=== PATIENT | female | born 1960 | race Caucasian/White ===

== ENCOUNTER 2016-12-01 11:11 | Inpatient (IN) | payer OTHER ==
[2016-12-01 14:12] VITALS: BMI 27.4
--- NOTE | 2016-12-01 18:30 | HP ---
CIWA Score - CIWA Score Nausea/Vomitin Muscle Tremors: 4-Moderate,w/Arms Extend Anxiety: 4-Mod. Anxious/Guarded Agitation: 4-Moderately Restless Paroxysmal Sweats: 1-Minimal Palms Moist Orientation: 0-Oriented Tacttile Disturbances: 0-None Auditory Disturbances: 0-None Visual Disturbances: 0-None Headache: 2-Mild CIWA-Ar Total Score: 17 Admission ROS BHS - HPI Chief Complaint: WITHDRAWAL SX Allergies/Adverse Reactions: Allergies Allergy/AdvReac Type Severity Reaction Status Date / Time No Known Allergies Allergy Verified 12/01/16 16:49 History of Present Illness: 56 YEARS OLD FEMALE WITH LONG HISTORY OF ALCOHOL NICOTINE DEPENDENCE HAS HIV POSITIVE PPD AND ANXIETY IS ADMITTED TO DETOX Exam Limitations: No Limitations - Ebola screening Have you traveled outside of the country in the last 21 days: No Have you had contact with anyone from an Ebola affected area: No Have you been sick,other than usual withdrawal symptoms: No Do you have a fever: No - Review of Systems Constitutional: Chills, Changes in sleep, Weight Stable EENT: reports: Dental Problems (UPPER AND LOWER DENTURE), Other (EYE GLASSES) Respiratory: reports: SOB with Exertion, Productive cough Cardiac: reports: No Symptoms Reported GI: reports: Nausea, Poor Fluid Intake, Indigestion, Abdominal cramping : reports: No Symptoms Reported Musculoskeletal: reports: No Symptoms Reported Integumentary: reports: No Symptoms Reported Neuro: reports: Tremors Endocrine: reports: No Symptoms Reported Hematology: reports: No Symptoms Reported Psychiatric: reports: Judgement Intact, Orientated x3, Anxious Other Systems: Reviewed and Negative Patient History - Patient Medical History Hx Anemia: No Hx Asthma: No Hx Chronic Obstructive Pulmonary Disease (COPD): No Hx Cancer: No Hx Cardiac Disorders: No Hx Congestive Heart Failure: No Hx Hypertension: No Hx Hypercholesterolemia: No Hx Pacemaker: No HX Cerebrovascular Accident: No Hx Seizures: No Hx Dementia: No Hx Diabetes: No Hx Gastrointestinal Disorders: Yes Hx Liver Disease: No Hx Genitourinary Disorders: No Hx Sexually Transmitted Disorders: No Hx Renal Disease (ESRD): No Hx Thyroid Disease: No Hx Human Immunodeficiency Virus (HIV): Yes (SINCE 2008; ON EPZICOM AND REYATAZ BUT NOT COMPLIANT DUE TO DRINKING.) Hx Hepatitis C: Yes (NO TREATMENT) Hx Depression: Yes Hx Suicide Attempt: No Hx Bipolar Disorder: No Hx Schizophrenia: No - Patient Surgical History Past Surgical History: Yes Hx Neurologic Surgery: No Hx Cataract Extraction: No Hx Cardiac Surgery: No Hx Lung Surgery: No Hx Breast Surgery: No Hx Breast Biopsy: No Hx Abdominal Surgery: Yes (exploratory sx in 2000) Hx Appendectomy: Yes (7 YEARS OLD) Hx Cholecystectomy: No Hx Genitourinary Surgery: No Hx Section: No Hx Orthopedic Surgery: No Hx Hysterectomy: No Other Surgical History: lower back sx in 2000 Anesthesia Reaction: No - PPD History Previous Implant?: Yes Documented Results: Positive w/o proof Implanted On Prior R Admission?: No PPD to be Administered?: No - Reproductive History Patient is a Female of Child Bearing Age (11 -55 yrs old): No Patient : No - Smoking Cessation Smoking history: Current every day smoker Have you smoked in the past 12 months: Yes Aproximately how many cigarettes per day: 10 Cigars Per Day: 0 Hx Chewing Tobacco Use: No Initiated information on smoking cessation: Yes 'Breaking Loose' booklet given: 12/01/16 - Substance & Tx. History Hx Alcohol Use: Yes Hx Substance Use: No Substance Use Type: Alcohol Hx Substance Use Treatment: Yes - Substances Abused Alcohol-beer Route: Oral Frequency: Daily Amount used: 3 (40 oz.) BEER Age of first use: 18 Date of Last Use: 12/01/16 Family Disease History - Family Disease History Family Disease History: Heart Disease: Mother (), CA: Father () Admission Physical Exam BHS - Vital Signs Vital Signs: Vital Signs - 24 hr 12/01/16 14:09 Temperature 95.9 F L Pulse Rate 118 H Respiratory 19 Rate Blood Pressure 119/83 - Physical General Appearance: Yes: Appropriately Dressed, Moderate Distress, Alcohol on Breath, Tremorous, Irritable, Sweating, Anxious HEENTM: Yes: Hearing grossly Normal, Normal ENT Inspection, Normocephalic, Normal Voice Respiratory: Yes: Chest Non-Tender, Lungs Clear, Normal Breath Sounds, No Respiratory Distress, No Accessory Muscle Use Neck: Yes: Supple, Trachea in good position Breast: Yes: Breasts Symetrical Cardiology: Yes: Regular Rhythm, S1, S2, Tachycardia Abdominal: Yes: Non Tender, Soft Genitourinary: Yes: Within Normal Limits Back: Yes: Normal Inspection Musculoskeletal: Yes: full range of Motion, Gait Steady Extremities: Yes: Normal Range of Motion, Non-Tender, Tremors Neurological: Yes: Fully Oriented, Alert, Motor Strength 5/5, Normal Response, Depressed Affect Integumentary: Yes: Warm Lymphatic: Yes: Within Normal Limits - Diagnostic (1) Alcohol dependence with uncomplicated withdrawal Current Visit: Yes Status: Acute (2) Nicotine dependence Current Visit: Yes Status: Acute Qualifiers: Nicotine product type: cigarettes Substance use status: in withdrawal Qualified Code(s): F17.213 - Nicotine dependence, cigarettes, with withdrawal (3) HIV (human immunodeficiency virus infection) Current Visit: Yes Status: Acute (4) Positive PPD, treated Current Visit: Yes Status: Resolved (5) Hepatitis C antibody test positive Current Visit: Yes Status: Resolved (6) Anxiety Current Visit: Yes Status: Suspected (7) Methadone maintenance therapy patient Current Visit: Yes Status: Acute Comment: 23 MG VERIFICATION PENDING Cleared for Admission [facility] - Detox or Rehab [facility] Level of Care: Medically Managed Detox Regimen/Protocol: Librium [facility] Breath Alcohol Content Breath Alcohol Content: 0.214 Urine Pregancy Test - Result Urine Test Results: Negative- NO Line Present Urine Drug Screen - Results Drug Screen Negative: No Urine Drug Screen Results: THC-Marijuana, MTD-Methadone
[2016-12-01] MEDS ORDERED: MAGNESIUM HYDROX 2400MG/30ML ORAL SUSPENSION 30 ML CUP PO PRN (18:32)
[2016-12-01] MEDS ORDERED: hydrOXYzine PAMOATE 50 MG CAPSULE (FP) PO PRN (18:32)
[2016-12-01] MEDS ORDERED: MAG HYDROX/AL HYDROX/SIMETH 30 ML UNIT-DOSE CUP PO PRN (18:32)
[2016-12-01] MEDS ORDERED: guaiFENesin/D-METHORPHAN HB 10 ML UNIT-DOSE CUPS PO PRN (18:32)
[2016-12-01] MEDS ORDERED: MENTHOL/PHENOL 1 EACH UD MM PRN (18:32)
[2016-12-01] MEDS ORDERED: IBUPROFEN 400 MG TABLET (FP) PO PRN (18:32)
[2016-12-01] MEDS ORDERED: LOPERAMIDE HCL 2 MG CAPSULE PO PRN (18:32)
[2016-12-01] MEDS ORDERED: ACETAMINOPHEN 325 MG TABLET (FP) PO PRN (18:32)
[2016-12-01] MEDS ORDERED: MAGNESIUM CITRATE 300 ML BOTTLE PO PRN (18:32)
[2016-12-01] MEDS ORDERED: diphenhydrAMINE HCL 50 MG CAPSULE PO PRN (18:32)
[2016-12-01] MEDS ORDERED: NICOTINE POLACRILEX 2 MG GUM BC PRN (18:32)
[2016-12-01] MEDS ORDERED: P-EPHED 60MG/TRIPROLIDI 2.5MG TABLET PO PRN (18:32)
[2016-12-01] MEDS ORDERED: chlordiazePOXIDE HCL 25 MG CAPSULE PO ONE (19:00)
[2016-12-01] MEDS: THIAMINE HCL 100 MG TABLET (FP) PO SCH (22:46)
[2016-12-01] MEDS: chlordiazePOXIDE HCL 25 MG CAPSULE PO SCH (22:47)
[2016-12-02 03:03] LABS: URINE APPEARANCE CLEAR; URINE BILIRUBIN NEGATIVE (NEGATIVE); URINE COLOR STRAW; URINE GLUCOSE (UA) NEGATIVE (NEGATIVE); URINE KETONE NEGATIVE (NEGATIVE); URINE LEUK ESTERASE NEGATIVE (NEGATIVE); URINE NITRITE NEGATIVE (NEGATIVE); URINE PROTEIN NEGATIVE (NEGATIVE); URINE UROBILINOGEN NEGATIVE E.U./dl (0.2-1.0)
[2016-12-02 03:10] LABS: URINE BLOOD 1+ (NEGATIVE)
[2016-12-02 03:17] LABS: URINE BACTERIA FEW /hpf (NONE SEEN); URINE HYALINE CAST 4 /lpf; URINE RBC <1 /hpf (0-3); URINE WBC 1 /hpf (3-5)
[2016-12-02] MEDS: chlordiazePOXIDE HCL 25 MG CAPSULE PO SCH ×4 (05:28→22:34)
[2016-12-02] MEDS: chlordiazePOXIDE HCL 25 MG CAPSULE PO PRN (08:38)
[2016-12-02] MEDS ORDERED: METHADONE HCL 10 MG TABLET PO ONE (08:46)
[2016-12-02] MEDS ORDERED: METHADONE 20 MG, METHADONE 5 MG PO ONE (09:16)
[2016-12-02] MEDS ORDERED: METHADONE HCL 10 MG TABLET ONE (09:32)
[2016-12-02] MEDS ORDERED: METHADONE HCL 5 MG TABLET ONE (09:33)
--- NOTE | 2016-12-02 09:50 | PN ---
[facility] CIWA - CIWA Score Nausea/Vomitin Muscle Tremors: 3 Anxiety: 3 Agitation: 3 Paroxysmal Sweats: 3 Orientation: 0-Oriented Tacttile Disturbances: 1-Very Mild Itch/Numbness Auditory Disturbances: 0-None Visual Disturbances: 0-None Headache: 0-None Present CIWA-Ar Total Score: 16 S Progress Note (SOAP) Subjective: interrupted sleep, sweats , diarrhea , anxious Objective: 12/02/16 09:47 Vital Signs Temperature 98.4 F 12/02/16 06:32 Pulse Rate 89 12/02/16 06:32 Respiratory Rate 20 12/02/16 06:32 Blood Pressure 121/66 12/02/16 06:32 O2 Sat by Pulse Oximetry (%) Laboratory Tests 12/01/16 23:25 Urine Color Straw Urine Appearance Clear Urine pH 6.0 Ur Specific [place] 1.003 Urine Protein Negative Urine Glucose (UA) Negative Urine Ketones Negative Urine Blood 1+ H Urine Nitrite Negative Urine Bilirubin Negative Urine Urobilinogen Negative Ur Leukocyte Esterase Negative Urine RBC <1 Urine WBC 1 Ur Epithelial Cells Rare Urine Bacteria Few Hyaline Casts 4 pending labs pt aox3 anxious , ambulating Assessment: 12/02/16 09:48 withdrawal sx's anxious Plan: cont. detox increase fluids imodium prn f/up pending results methadone 25mg /d
[2016-12-02 10:02] LABS: MCH 34.6 pg (25.7-33.7); MCHC 34.4 g/dl (32.0-36.0); MEAN CELL VOLUME 100.6 fl (80-96); MEAN PLT VOLUME 10.1 fl (7.5-11.1); PLATELET COUNT 156 K/MM3 (134-434); RDW 12.6 % (11.6-15.6); WHITE BLOOD COUNT 5.7 K/mm3 (4.0-10.0)
[2016-12-02 10:27] LABS: ALBUMIN 4.3 g/dl (3.4-5.0); BILIRUBIN,TOTAL 0.7 mg/dL (0.2-1.0); COCKROFT - GAULT 67.4645; TOT PROT 8.1 g/dl (6.4-8.2)
--- NOTE | 2016-12-02 10:45 | CONSULT ---
[facility] Psychiatric Consult - Data Date of interview: 12/02/16 Admission source: [facility] Identifying data: Readmission to [facility] for this 56 y/o female from [place] ancestry seeking detox treatment for alcohol and marijuana dependence.Patient is ,no children,domiciled,unemployed and supported on [employer] funds. Substance Abuse History: - Smoking Cessation. Smoking history: Current every day smoker. Have you smoked in the past 12 months: Yes. Aproximately how many cigarettes per day: 10. Cigars Per Day: 0. Hx Chewing Tobacco Use: No. Initiated information on smoking cessation: Yes. 'Breaking Loose' booklet given : 12/01/16. - Substance & Tx. History. Hx Alcohol Use: Yes. Hx Substance Use : No. Substance Use Type: Alcohol. Hx Substance Use Treatment: Yes. - Substances Abused. Alcohol-beer. Route: Oral. Frequency: Daily. Amount used: 3 (40 oz.) BEER. Age of first use: 18. Date of Last Use: 12/01/16. Confirmed by patient. Medical History: HIV infection since 2008,hepatitis C,past history of surgeries (exploratory laparotomy in 2000/disk issues in lumbar spine) and appendectomy. Psychiatric History: Patient denies. Physical/Sexual Abuse/Trauma History: Patient denies. Additional Comment: Urine Drug Screen Results: THC-Marijuana, MTD- Methadone.Noted. Mental Status Exam - Mental Status Exam Alert and Oriented to: Time, Place, Person Cognitive Function: Good Patient Appearance: Well Groomed Mood: Nervous, Withdrawn, Anxious, Apprehensive Affect: Mood Congruent Patient Behavior: Fatigued, Appropriate, Cooperative Speech Pattern: Clear Voice Loudness: Normal Thought Process: Goal Oriented Thought Disorder: Not Present Hallucinations: Denies Suicidal Ideation: Denies Homicidal Ideation: Denies Insight/Judgement: Poor Sleep: Fair Appetite: Good Muscle strength/Tone: Normal Gait/Station: Normal Psychiatric Findings - Problem List ([place] 1, 2,3) (1) Alcohol dependence with uncomplicated withdrawal Current Visit: Yes Status: Acute (2) Nicotine dependence Current Visit: Yes Status: Acute Qualifiers: Nicotine product type: cigarettes Substance use status: in withdrawal Qualified Code(s): F17.213 - Nicotine dependence, cigarettes, with withdrawal (3) Opioid dependence on agonist therapy Current Visit: Yes Status: Acute (4) marijuana dependence Current Visit: Yes Status: Active (5) Substance induced mood disorder Current Visit: Yes Status: Acute (6) HIV (human immunodeficiency virus infection) Current Visit: Yes Status: Acute (7) Hepatitis C antibody test positive Current Visit: Yes Status: Resolved (8) Positive PPD, treated Current Visit: Yes Status: Resolved - Initial Treatment Plan Initial Treatment Plan: Psychoeducation.Detoxification.Observation.
[2016-12-02] MEDS: PRENATAL VITAMINS W/ FOLIC ACID TABLET (FP) PO SCH (10:49)
[2016-12-02] MEDS: PATIENT'S OWN MEDICATION (NON-FORMULARY) (Abacavir Sulfate/Lamivudine [Epzicom -] 1 TAB) PO SCH (10:50)
[2016-12-02] MEDS: ATAZANAVIR PO SCH (10:50)
[2016-12-02] MEDS: NICOTINE 14 MG/24 HOURS TOPICAL PATCH TD SCH (10:50)
--- NOTE | 2016-12-02 13:12 | EKG ---
Test Reason : Blood Pressure : / mmHG Vent. Rate : 091 BPM Atrial Rate : 091 BPM P-R Int : 134 ms QRS Dur : 078 ms QT Int : 380 ms P-R-T Axes : 065 083 058 degrees QTc Int : 467 ms NORMAL SINUS RHYTHM NORMAL ECG NO PREVIOUS ECGS AVAILABLE Confirmed by TAMARA BAILEY, LAMAR ([id number]) on 12/02/2016 1:12:40 PM Referred By: Confirmed By:LAMAR MCDONALD MD
[2016-12-02] MEDS ORDERED: ONDANSETRON *ODT* 4 MG TABLET SL PRN (13:58)
[2016-12-02] MEDS: THIAMINE HCL 100 MG TABLET (FP) PO SCH (22:34)
[2016-12-03] MEDS ORDERED: METHADONE HCL 5 MG TABLET ONE ×2 (04:37→09:14)
[2016-12-03] MEDS ORDERED: METHADONE HCL 10 MG TABLET ONE ×2 (04:37→09:14)
[2016-12-03] MEDS: chlordiazePOXIDE HCL 25 MG CAPSULE PO SCH ×3 (05:39→17:48)
[2016-12-03] MEDS: METHADONE 20 MG, METHADONE 5 MG PO SCH (05:39)
[2016-12-03] MEDS ORDERED: METHADONE HCL 40 MG DISPERSABLE TABLET PO SCH (06:00)
[2016-12-03] MEDS: PATIENT'S OWN MEDICATION (NON-FORMULARY) (Abacavir Sulfate/Lamivudine [Epzicom -] 1 TAB) PO SCH (10:26)
[2016-12-03] MEDS: ATAZANAVIR PO SCH (10:26)
[2016-12-03] MEDS: PRENATAL VITAMINS W/ FOLIC ACID TABLET (FP) PO SCH (10:28)
[2016-12-03] MEDS: NICOTINE 14 MG/24 HOURS TOPICAL PATCH TD SCH (10:28)
[2016-12-03 10:49] LABS: SGOT/AST 204 U/L (15-37); SGPT/ALT 145 U/L (12-78)
--- NOTE | 2016-12-03 12:00 | PN ---
BHS Progress Note (SOAP) Subjective: interrupted sleep, sweats Objective: 12/03/16 11:59 Vital Signs Temperature 97.9 F 12/03/16 06:00 Pulse Rate 79 12/03/16 06:00 Respiratory Rate 18 12/03/16 06:00 Blood Pressure 101/54 12/03/16 06:00 O2 Sat by Pulse Oximetry (%) Laboratory Tests 12/01/16 12/02/16 12/02/16 23:25 06:00 06:00 WBC 5.7 D RBC 4.24 Hgb 14.7 Hct 42.6 MCV 100.6 H MCHC 34.4 RDW 12.6 D Plt Count 156 MPV 10.1 Sodium 139 Potassium 4.6 Chloride 104 Carbon Dioxide 24 Anion Gap 11 BUN 9 Creatinine 1.0 D Creat Clearance w eGFR 57.35 Random Glucose 119 H D Calcium 9.0 Total Bilirubin 0.7 D AST 176 H D ALT 115 H D Alkaline Phosphatase 99 D Total Protein 8.1 Albumin 4.3 Urine Color Straw Urine Appearance Clear Urine pH 6.0 Ur Specific [place] 1.003 Urine Protein Negative Urine Glucose (UA) Negative Urine Ketones Negative Urine Blood 1+ H Urine Nitrite Negative Urine Bilirubin Negative Urine Urobilinogen Negative Ur Leukocyte Esterase Negative Urine RBC <1 Urine WBC 1 Ur Epithelial Cells Rare Urine Bacteria Few Hyaline Casts 4 RPR Titer 12/02/16 12/03/16 06:00 07:00 WBC RBC Hgb Hct MCV MCHC RDW Plt Count MPV Sodium Potassium Chloride Carbon Dioxide Anion Gap BUN Creatinine Creat Clearance w eGFR Random Glucose Calcium Total Bilirubin AST 204 H ALT 145 H D Alkaline Phosphatase Total Protein Albumin Urine Color Urine Appearance Urine pH Ur Specific [place] Urine Protein Urine Glucose (UA) Urine Ketones Urine Blood Urine Nitrite Urine Bilirubin Urine Urobilinogen Ur Leukocyte Esterase Urine RBC Urine WBC Ur Epithelial Cells Urine Bacteria Hyaline Casts RPR Titer Nonreactive pt aox3 in nad ambulating Assessment: 12/03/16 11:59 withdrawal sx's Plan: cont. detox increase fluids
[2016-12-03] MEDS: chlordiazePOXIDE HCL 25 MG CAPSULE PO PRN (14:12)
[2016-12-03] MEDS: chlordiazePOXIDE 5 MG CAPSULE PO SCH (22:15)
[2016-12-03] MEDS: THIAMINE HCL 100 MG TABLET (FP) PO SCH (22:15)
[2016-12-04] MEDS ORDERED: METHADONE HCL 5 MG TABLET ONE (04:21)
[2016-12-04] MEDS ORDERED: METHADONE HCL 10 MG TABLET ONE (04:21)
[2016-12-04] MEDS: chlordiazePOXIDE 5 MG CAPSULE PO SCH (06:20)
[2016-12-04] MEDS: METHADONE 20 MG, METHADONE 5 MG PO SCH (06:21)
--- NOTE | 2016-12-04 08:53 | DS ---
[facility] Detox Discharge Summary Admission Date: 12/01/16 Discharge Date: 12/04/16 - History Present History: Alcohol Dependence, MMTP - Physical Exam Results Vital Signs: Vital Signs Temperature 97.9 F 12/04/16 06:59 Pulse Rate 71 12/04/16 06:59 Respiratory Rate 18 12/04/16 06:59 Blood Pressure 110/58 12/04/16 06:59 O2 Sat by Pulse Oximetry (%) - Treatment Hospital Course: Detox Protocol Followed, Detoxed Safely, Responded well, Discharged Condition Good - Medication Discharge Medications: Ambulatory Orders Abacavir Sulfate/Lamivudine [Epzicom] 1 tab PO DAILY 05/19/12 Atazanavir [Reyataz -] 400 mg PO DAILY 12/01/16 - Diagnosis (1) Alcohol dependence with uncomplicated withdrawal Current Visit: Yes Status: Chronic (2) HIV (human immunodeficiency virus infection) Current Visit: Yes Status: Chronic (3) Methadone maintenance therapy patient Current Visit: Yes Status: Chronic (4) Nicotine dependence Current Visit: Yes Status: Chronic Qualifiers: Nicotine product type: cigarettes Substance use status: uncomplicated Qualified Code(s): F17.210 - Nicotine dependence, cigarettes, uncomplicated (5) Anxiety Current Visit: Yes Status: Suspected (6) Hepatitis C antibody test positive Current Visit: Yes Status: Chronic (7) bipolar disorder Current Visit: Yes Status: Chronic - AMA Did Patient Leave Against Medical Advice: No (was d/c'ed early fereling well has things to do. )
[2016-12-04] MEDS: ATAZANAVIR PO SCH (09:31)
[2016-12-04] MEDS: PATIENT'S OWN MEDICATION (NON-FORMULARY) (Abacavir Sulfate/Lamivudine [Epzicom -] 1 TAB) PO SCH (09:32)
[2016-12-04] MEDS: NICOTINE 14 MG/24 HOURS TOPICAL PATCH TD SCH (09:33)
[2016-12-04] MEDS: PRENATAL VITAMINS W/ FOLIC ACID TABLET (FP) PO SCH (09:33)
[2016-12-04 10:02] VITALS: BP 122/71; PULSE 88; TEMP 97.2
[2016-12-04] MEDS ORDERED: chlordiazePOXIDE HCL 10 MG CAPSULE PO SCH (23:00)
== END 2016-12-04 09:43 | disposition home or self-care (01) | DRG 773 ==
LOC: YASAS 11:11 → Y6N 18:03
PROVIDERS: ADMIT Internal Medicine Addiction Medicine; ATTEND Internal Medicine Addiction Medicine
PROC: HZ2ZZZZ Detoxification Services for Substance Abuse Treatment (ICD-10-PCS; principal; 2016-12-04)
DX: F11.20 Opioid dependence, uncomplicated (principal); F10.20 Alcohol dependence, uncomplicated; F12.20 Cannabis dependence, uncomplicated; F17.213 Nicotine dependence, cigarettes, with withdrawal; F31.9 Bipolar disorder, unspecified; F19.24 Other psychoactive substance dependence with psychoactive substance-induced mood disorder; B18.2 Chronic viral hepatitis C; Z21 Asymptomatic human immunodeficiency virus [HIV] infection status
CPT/HCPCS: 36415; 71020-TC; 80053; 81003; 81015; 84450; 84460; 85027; 86593; 93005; 93010

== ENCOUNTER 2017-01-07 12:10 | Inpatient (IN) | payer OTHER ==
[2017-01-07 17:24] VITALS: BMI 28.9
--- NOTE | 2017-01-07 17:26 | HP ---
CIWA Score - CIWA Score Nausea/Vomitin-Mild Nausea/No Vomiting Muscle Tremors: 4-Moderate,w/Arms Extend Anxiety: 4-Mod. Anxious/Guarded Agitation: 4-Moderately Restless Paroxysmal Sweats: 1-Minimal Palms Moist Orientation: 0-Oriented Tacttile Disturbances: 0-None Auditory Disturbances: 0-None Visual Disturbances: 0-None Headache: 0-None Present CIWA-Ar Total Score: 14 Admission ROS BHS - HPI Chief Complaint: WITHDRAWAL SX Allergies/Adverse Reactions: Allergies Allergy/AdvReac Type Severity Reaction Status Date / Time No Known Allergies Allergy Verified 01/07/17 17:29 History of Present Illness: 56 YEARS OLD FEMALE WITH LONG HISTORY OF ALCOHOL NICOTINE DEPENDENCE HAS HIV POSITIVE PPD HEPATITIS C AND BIPOLAR II IS ADMITTED TO DETOX Exam Limitations: No Limitations - Ebola screening Have you traveled outside of the country in the last 21 days: No Have you had contact with anyone from an Ebola affected area: No Have you been sick,other than usual withdrawal symptoms: No Do you have a fever: No - Review of Systems Constitutional: Chills, Changes in sleep, Weight Stable EENT: reports: Other (EYE GLASSES AT HOME) Respiratory: reports: No Symptoms reported Cardiac: reports: No Symptoms Reported GI: reports: Nausea, Poor Fluid Intake, Indigestion, Abdominal cramping : reports: No Symptoms Reported Musculoskeletal: reports: No Symptoms Reported Integumentary: reports: No Symptoms Reported Neuro: reports: Tremors Endocrine: reports: No Symptoms Reported Hematology: reports: No Symptoms Reported Psychiatric: reports: Judgement Intact, Orientated x3, Depressed Other Systems: Reviewed and Negative Patient History - Patient Medical History Hx Anemia: No Hx Asthma: No Hx Chronic Obstructive Pulmonary Disease (COPD): No Hx Cancer: No Hx Cardiac Disorders: No Hx Congestive Heart Failure: No Hx Hypertension: No Hx Hypercholesterolemia: No Hx Pacemaker: No HX Cerebrovascular Accident: No Hx Seizures: No Hx Dementia: No Hx Diabetes: No Hx Gastrointestinal Disorders: Yes Hx Liver Disease: No Hx Genitourinary Disorders: No Hx Sexually Transmitted Disorders: No Hx Renal Disease (ESRD): No Hx Thyroid Disease: No Hx Human Immunodeficiency Virus (HIV): Yes (SINCE 2008; ON EPZICOM AND REYATAZ BUT NOT COMPLIANT DUE TO DRINKING.) Hx Hepatitis C: Yes (NO TREATMENT) Hx Depression: No Hx Suicide Attempt: No Hx Bipolar Disorder: Yes Hx Schizophrenia: No - Patient Surgical History Past Surgical History: Yes Hx Neurologic Surgery: No Hx Cataract Extraction: No Hx Cardiac Surgery: No Hx Lung Surgery: No Hx Breast Surgery: No Hx Breast Biopsy: No Hx Abdominal Surgery: Yes (ABSCESS exploratory sx in 2000) Hx Appendectomy: Yes (7 YEARS OLD) Hx Cholecystectomy: No Hx Genitourinary Surgery: No Hx Section: No Hx Orthopedic Surgery: No Hx Hysterectomy: No Other Surgical History: lower back sx in 2000 [facility] EXPL[employer] Anesthesia Reaction: No - PPD History Previous Implant?: Yes Documented Results: Positive w/o proof Implanted On Prior R Admission?: No PPD to be Administered?: No - Reproductive History Patient is a Female of Child Bearing Age (11 -55 yrs old): No - Smoking Cessation Smoking history: Current every day smoker Have you smoked in the past 12 months: Yes Aproximately how many cigarettes per day: 20 Cigars Per Day: 0 Hx Chewing Tobacco Use: No Initiated information on smoking cessation: Yes 'Breaking Loose' booklet given: 01/07/17 - Substance & Tx. History Hx Alcohol Use: Yes Hx Substance Use: Yes Substance Use Type: Alcohol, Marijuana, Tranquilizers Hx Substance Use Treatment: Yes - Substances Abused Alcohol Route: Oral Frequency: Daily Alcohol-beer Route: Oral Frequency: Daily Amount used: 3 (40 oz.) Age of first use: 18 Date of Last Use: 01/07/17 Family Disease History - Family Disease History Family Disease History: Heart Disease: Mother (), CA: Father () Admission Physical Exam S - Physical General Appearance: Yes: Nourished, Appropriately Dressed, Mild Distress, Alcohol on Breath, Tremorous, Irritable, Sweating, Anxious HEENTM: Yes: Hearing grossly Normal, Normal ENT Inspection, Normocephalic, Normal Voice Respiratory: Yes: Chest Non-Tender, Lungs Clear, Normal Breath Sounds, No Respiratory Distress, No Accessory Muscle Use Neck: Yes: Supple, Trachea in good position Breast: Yes: Breasts Symetrical Cardiology: Yes: Regular Rhythm, S1, S2, Tachycardia Abdominal: Yes: Non Tender, Soft, Distended (SCHEDULED FOR ULTRASOUND,) Genitourinary: Yes: Within Normal Limits Back: Yes: Normal Inspection Musculoskeletal: Yes: full range of Motion, Gait Steady Extremities: Yes: Normal Inspection, Normal Range of Motion, Non-Tender, Tremors Neurological: Yes: Fully Oriented, Alert, Motor Strength 5/5, Normal Response, Depressed Affect Integumentary: Yes: Warm Lymphatic: Yes: Within Normal Limits - Diagnostic (1) Alcohol dependence with uncomplicated withdrawal Current Visit: Yes Status: Acute (2) HIV (human immunodeficiency virus infection) Current Visit: Yes Status: Chronic Comment: 23 MG VERIFICATION PENDING (3) Hepatitis C antibody test positive Current Visit: Yes Status: Resolved Comment: TREATED (4) Methadone maintenance therapy patient Current Visit: Yes Status: Chronic Comment: 23 MG VERIFICATION PENDING (5) Nicotine dependence Current Visit: Yes Status: Acute Qualifiers: Nicotine product type: cigarettes Substance use status: in withdrawal Qualified Code(s): F17.213 - Nicotine dependence, cigarettes, with withdrawal (6) Cannabis dependence, uncomplicated Current Visit: Yes Status: Chronic Cleared for Admission S - Detox or Rehab [facility] Level of Care: Medically Managed Detox Regimen/Protocol: Librium BHS Breath Alcohol Content Breath Alcohol Content: 0 Vital Signs - Vital Signs Vital Signs Refused: No Temperature: 98.6 F Temperature Source: Oral Pulse Rate: 108 Respiratory Rate: 20 Blood Pressure: 141/94 BP Location: Left Arm Blood Pressure Position: Sitting - Height Height: 5 ft 2 in - Weight Weight: 158 lb Weight Measurement Method: Standing Scale Body Mass Index (BMI): 28.9 - Bowel Function Bowel Movement: Yes Urine Drug Screen - Control Is Test Valid: Yes - Results Drug Screen Negative: No Urine Drug Screen Results: THC-Marijuana, BZO-Benzodiazepines, MTD-Methadone
[2017-01-07] MEDS ORDERED: MAGNESIUM HYDROX 2400MG/30ML ORAL SUSPENSION 30 ML CUP PO PRN (17:31)
[2017-01-07] MEDS ORDERED: guaiFENesin/D-METHORPHAN HB 10 ML UNIT-DOSE CUPS PO PRN (17:31)
[2017-01-07] MEDS ORDERED: P-EPHED 60MG/TRIPROLIDI 2.5MG TABLET PO PRN (17:31)
[2017-01-07] MEDS ORDERED: IBUPROFEN 400 MG TABLET (FP) PO PRN (17:31)
[2017-01-07] MEDS ORDERED: ACETAMINOPHEN 325 MG TABLET (FP) PO PRN (17:31)
[2017-01-07] MEDS ORDERED: MENTHOL/PHENOL 1 EACH UD MM PRN (17:31)
[2017-01-07] MEDS ORDERED: MAGNESIUM CITRATE 300 ML BOTTLE PO PRN (17:31)
[2017-01-07] MEDS ORDERED: LOPERAMIDE HCL 2 MG CAPSULE PO PRN (17:31)
[2017-01-07] MEDS ORDERED: MAG HYDROX/AL HYDROX/SIMETH 30 ML UNIT-DOSE CUP PO PRN (17:31)
[2017-01-07] MEDS ORDERED: NICOTINE POLACRILEX 4 MG GUM BC PRN (17:31)
[2017-01-07] MEDS ORDERED: cloNIDine HCL 0.1 MG TABLET PO PRN (17:46)
[2017-01-07] MEDS: chlordiazePOXIDE HCL 25 MG CAPSULE PO PRN (19:34)
[2017-01-07] MEDS: RANITIDINE HCL 150 MG TABLET (FP) PO SCH (22:12)
[2017-01-07] MEDS: THIAMINE HCL 100 MG TABLET (FP) PO SCH (22:12)
[2017-01-07] MEDS: chlordiazePOXIDE HCL 25 MG CAPSULE PO SCH (22:12)
[2017-01-07] MEDS: diphenhydrAMINE HCL 50 MG CAPSULE PO PRN (22:12)
[2017-01-07 23:23] LABS: URINE APPEARANCE CLEAR; URINE BILIRUBIN NEGATIVE (NEGATIVE); URINE BLOOD NEGATIVE (NEGATIVE); URINE COLOR DKYELLOW; URINE GLUCOSE (UA) NEGATIVE (NEGATIVE); URINE KETONE TRACE (NEGATIVE); URINE LEUK ESTERASE NEGATIVE (NEGATIVE); URINE NITRITE NEGATIVE (NEGATIVE); URINE PROTEIN NEGATIVE (NEGATIVE); URINE UROBILINOGEN 4.0 E.U/dl E.U./dl (0.2-1.0)
[2017-01-08] MEDS: chlordiazePOXIDE HCL 25 MG CAPSULE PO SCH ×4 (07:02→22:29)
[2017-01-08] MEDS ORDERED: METHADONE HCL 10 MG TABLET PO ONE ×2 (08:27)
--- NOTE | 2017-01-08 08:55 | CONSULT ---
[facility] Psychiatric Consult - Data Date of interview: 01/08/17 Admission source: [facility] Identifying data: This is 56 years old female with no psychiatric hospitalization history intoxicated with: Alcohol, Nicotine and Cannabis and Methadone Substance Abuse History: - Smoking Cessation. Smoking history: Current every day smoker. Have you smoked in the past 12 months: Yes. Aproximately how many cigarettes per day: 20. Cigars Per Day: 0. Hx Chewing Tobacco Use: No. Initiated information on smoking cessation: Yes. 'Breaking Loose' booklet given : 01/07/17. - Substance & Tx. History. Hx Alcohol Use: Yes. Hx Substance Use : Yes. Substance Use Type: Alcohol, Marijuana, Tranquilizers. Hx Substance Use Treatment: Yes. - Substances Abused. Alcohol. Route: Oral. Frequency : Daily. Alcohol-beer. Route: Oral. Frequency: Daily. Amount used: 3 (40 oz.). Age of first use: 18. Date of Last Use: 01/07/17 Medical History: HIV, Syncope history, PPD+ history, HerpC+,MMTP 23mg per day Psychiatric History: Patient reprots history of anxiety and depression, as per computer there ios a history of Bipolar Disorder, patient reports no history of Bi[polar Disorder Physical/Sexual Abuse/Trauma History: Denies Additional Comment: Observation. Detox Unit Care Protocol Mental Status Exam - Mental Status Exam Alert and Oriented to: Person Cognitive Function: Fair Patient Appearance: Unkempt Mood: Anxious Affect: Mood Congruent Patient Behavior: Cooperative Speech Pattern: Appropriate Voice Loudness: Normal Thought Process: Goal Oriented Thought Disorder: Being Controlled Hallucinations: Denies Suicidal Ideation: Denies Homicidal Ideation: Denies Insight/Judgement: Fair Sleep: Difficulty falling asleep Appetite: Weight gain Muscle strength/Tone: Normal Gait/Station: Normal Additional Comments: Observation. Detox Unit Care Protocol Psychiatric Findings - Problem List ([place] 1, 2,3) (1) Alcohol dependence with uncomplicated withdrawal Current Visit: Yes Status: Acute (2) Nicotine dependence Current Visit: Yes Status: Acute Qualifiers: Nicotine product type: cigarettes Substance use status: in withdrawal Qualified Code(s): F17.213 - Nicotine dependence, cigarettes, with withdrawal (3) Cannabis dependence, uncomplicated Current Visit: Yes Status: Chronic (4) Methadone maintenance therapy patient Current Visit: Yes Status: Chronic Comment: 23 MG VERIFICATION PENDING (5) Alcohol dependence Current Visit: No Status: Active (6) marijuana dependence Current Visit: No Status: Active (7) Opioid dependence on agonist therapy Current Visit: No Status: Acute (8) Substance induced mood disorder Current Visit: No Status: Acute - Initial Treatment Plan Initial Treatment Plan: Observation. Detox Unit Care Protocol
[2017-01-08] MEDS ORDERED: METHADONE 20 MG, METHADONE 5 MG PO ONE (10:05)
[2017-01-08 10:07] LABS: MCH 34.9 pg (25.7-33.7); MCHC 34.2 g/dl (32.0-36.0); MEAN PLT VOLUME 9.7 fl (7.5-11.1); PLATELET COUNT 116 K/MM3 (134-434); RDW 13.1 % (11.6-15.6); WHITE BLOOD COUNT 4.2 K/mm3 (4.0-10.0)
[2017-01-08 10:11] LABS: ALBUMIN 3.8 g/dl (3.4-5.0); ALK PHOS 80 U/L (45-117); ANION GAP 7 (8-16); BILIRUBIN,TOTAL 1.1 mg/dL (0.2-1.0); CALCIUM 8.8 mg/dL (8.5-10.1); CO2 30 mmol/L (21-32); CREATININE 0.9 mg/dL (0.55-1.02); GLUCOSE,RANDOM 111 mg/dL (74-106); SGOT/AST 66 U/L (15-37); SGPT/ALT 51 U/L (12-78); TOT PROT 6.8 g/dl (6.4-8.2)
[2017-01-08] MEDS: RANITIDINE HCL 150 MG TABLET (FP) PO SCH ×2 (10:26→22:29)
[2017-01-08] MEDS: NICOTINE 21 MG/24 HOURS TOPICAL PATCH TD SCH (10:26)
[2017-01-08] MEDS: PRENATAL VITAMINS W/ FOLIC ACID TABLET (FP) PO SCH (10:26)
[2017-01-08] MEDS ORDERED: METHADONE HCL 10 MG TABLET ONE (10:28)
[2017-01-08] MEDS ORDERED: METHADONE HCL 5 MG TABLET ONE (10:28)
[2017-01-08] MEDS: ATAZANAVIR PO SCH (11:13)
[2017-01-08] MEDS: PATIENT'S OWN MEDICATION (NON-FORMULARY) (Abacavir Sulfate/Lamivudine [Epzicom -] 1 TAB) PO SCH (11:13)
--- NOTE | 2017-01-08 12:19 | PN ---
S CIWA - CIWA Score Nausea/Vomitin Muscle Tremors: 3 Anxiety: 3 Agitation: 2 Paroxysmal Sweats: 3 Orientation: 0-Oriented Tacttile Disturbances: 1-Very Mild Itch/Numbness Auditory Disturbances: 0-None Visual Disturbances: 0-None Headache: 0-None Present CIWA-Ar Total Score: 14 BHS Progress Note (SOAP) Subjective: interrupted sleep,sweats, mild shakes, starting to eat. Objective: 01/08/17 12:18 Vital Signs Temperature 97.9 F 01/08/17 09:52 Pulse Rate 98 H 01/08/17 09:52 Respiratory Rate 18 01/08/17 09:52 Blood Pressure 104/64 01/08/17 09:52 O2 Sat by Pulse Oximetry (%) Laboratory Tests 01/07/17 01/08/17 01/08/17 23:10 07:00 07:00 WBC 4.2 RBC 3.86 Hgb 13.5 Hct 39.4 MCV 102.0 H MCHC 34.2 RDW 13.1 Plt Count 116 L D MPV 9.7 Sodium 142 Potassium 4.1 Chloride 105 Carbon Dioxide 30 D Anion Gap 7 L BUN 15 D Creatinine 0.9 Creat Clearance w eGFR > 60 Random Glucose 111 H Calcium 8.8 Total Bilirubin 1.1 H D AST 66 H D ALT 51 D Alkaline Phosphatase 80 Total Protein 6.8 Albumin 3.8 Urine Color Dkyellow Urine Appearance Clear Urine pH 6.0 Ur Specific [place] 1.015 Urine Protein Negative Urine Glucose (UA) Negative Urine Ketones Trace H Urine Blood Negative Urine Nitrite Negative Urine Bilirubin Negative Urine Urobilinogen 4.0 e.u/dl H Ur Leukocyte Esterase Negative pt aox3 in nad ambulating Assessment: 01/08/17 12:19 withdrawal sx's Plan: cont. detox increase fluids
--- NOTE | 2017-01-08 13:12 | EKG ---
Test Reason : Blood Pressure : / mmHG Vent. Rate : 079 BPM Atrial Rate : 079 BPM P-R Int : 122 ms QRS Dur : 078 ms QT Int : 392 ms P-R-T Axes : 053 081 048 degrees QTc Int : 449 ms NORMAL SINUS RHYTHM NONSPECIFIC ST AND T WAVE ABNORMALITY ABNORMAL ECG WHEN COMPARED WITH ECG OF 01-DEC-2016 19:17, NO SIGNIFICANT CHANGE WAS FOUND Confirmed by NARAYAN FERNANDEZ MD ([id number]) on 01/08/2017 1:12:18 PM Referred By: Ruel Can Confirmed By:NARAYAN FERNANDEZ MD
[2017-01-08] MEDS: chlordiazePOXIDE HCL 25 MG CAPSULE PO PRN (13:28)
[2017-01-08] MEDS: THIAMINE HCL 100 MG TABLET (FP) PO SCH (22:29)
[2017-01-08] MEDS: diphenhydrAMINE HCL 50 MG CAPSULE PO PRN (22:29)
[2017-01-09] MEDS ORDERED: METHADONE HCL 10 MG TABLET ONE (04:49)
[2017-01-09] MEDS ORDERED: METHADONE HCL 5 MG TABLET ONE (04:49)
[2017-01-09] MEDS ORDERED: METHADONE HCL 40 MG DISPERSABLE TABLET PO SCH ×2 (06:00)
[2017-01-09] MEDS: chlordiazePOXIDE HCL 25 MG CAPSULE PO SCH ×3 (07:37→17:12)
[2017-01-09] MEDS: METHADONE 20 MG, METHADONE 5 MG PO SCH (07:37)
[2017-01-09] MEDS: PATIENT'S OWN MEDICATION (NON-FORMULARY) (Abacavir Sulfate/Lamivudine [Epzicom -] 1 TAB) PO SCH (08:25)
[2017-01-09] MEDS: ATAZANAVIR PO SCH (08:26)
[2017-01-09] MEDS: PRENATAL VITAMINS W/ FOLIC ACID TABLET (FP) PO SCH (10:29)
[2017-01-09] MEDS: RANITIDINE HCL 150 MG TABLET (FP) PO SCH ×2 (10:29→22:33)
[2017-01-09] MEDS: NICOTINE 21 MG/24 HOURS TOPICAL PATCH TD SCH (10:30)
--- NOTE | 2017-01-09 11:17 | PN ---
[facility] CIWA - CIWA Score Nausea/Vomitin-No Nausea/No Vomiting Muscle Tremors: 3 Anxiety: 3 Agitation: 3 Paroxysmal Sweats: 3 Orientation: 0-Oriented Tacttile Disturbances: 0-None Auditory Disturbances: 0-None Visual Disturbances: 0-None Headache: 0-None Present CIWA-Ar Total Score: 12 S Progress Note (SOAP) Subjective: sweats anxious body aches Objective: 01/09/17 11:16 Vital Signs Temperature 97.7 F 01/09/17 10:00 Pulse Rate 97 H 01/09/17 10:00 Respiratory Rate 20 01/09/17 10:00 Blood Pressure 102/71 01/09/17 10:00 O2 Sat by Pulse Oximetry (%) Laboratory Tests 01/07/17 01/08/17 01/08/17 23:10 07:00 07:00 WBC 4.2 RBC 3.86 Hgb 13.5 Hct 39.4 MCV 102.0 H MCHC 34.2 RDW 13.1 Plt Count 116 L D MPV 9.7 Sodium 142 Potassium 4.1 Chloride 105 Carbon Dioxide 30 D Anion Gap 7 L BUN 15 D Creatinine 0.9 Creat Clearance w eGFR > 60 Random Glucose 111 H Calcium 8.8 Total Bilirubin 1.1 H D AST 66 H D ALT 51 D Alkaline Phosphatase 80 Total Protein 6.8 Albumin 3.8 Urine Color Dkyellow Urine Appearance Clear Urine pH 6.0 Ur Specific [place] 1.015 Urine Protein Negative Urine Glucose (UA) Negative Urine Ketones Trace H Urine Blood Negative Urine Nitrite Negative Urine Bilirubin Negative Urine Urobilinogen 4.0 e.u/dl H Ur Leukocyte Esterase Negative RPR Titer 01/08/17 07:00 WBC RBC Hgb Hct MCV MCHC RDW Plt Count MPV Sodium Potassium Chloride Carbon Dioxide Anion Gap BUN Creatinine Creat Clearance w eGFR Random Glucose Calcium Total Bilirubin AST ALT Alkaline Phosphatase Total Protein Albumin Urine Color Urine Appearance Urine pH Ur Specific [place] Urine Protein Urine Glucose (UA) Urine Ketones Urine Blood Urine Nitrite Urine Bilirubin Urine Urobilinogen Ur Leukocyte Esterase RPR Titer Nonreactive awake/alert ambulating no acute distress Assessment: 01/09/17 11:17 withdrawal sx Plan: continue detox increase fluids
[2017-01-09] MEDS: diphenhydrAMINE HCL 50 MG CAPSULE PO PRN (22:30)
[2017-01-09] MEDS: THIAMINE HCL 100 MG TABLET (FP) PO SCH (22:31)
[2017-01-09] MEDS: chlordiazePOXIDE 5 MG CAPSULE PO SCH (22:31)
[2017-01-10] MEDS ORDERED: METHADONE HCL 10 MG TABLET ONE (04:07)
[2017-01-10] MEDS ORDERED: METHADONE HCL 5 MG TABLET ONE (04:08)
[2017-01-10] MEDS: chlordiazePOXIDE 5 MG CAPSULE PO SCH ×3 (07:15→18:10)
[2017-01-10] MEDS: METHADONE 20 MG, METHADONE 5 MG PO SCH (07:16)
[2017-01-10] MEDS: ATAZANAVIR PO SCH (08:03)
[2017-01-10] MEDS: PATIENT'S OWN MEDICATION (NON-FORMULARY) (Abacavir Sulfate/Lamivudine [Epzicom -] 1 TAB) PO SCH (08:04)
[2017-01-10] MEDS: PRENATAL VITAMINS W/ FOLIC ACID TABLET (FP) PO SCH (10:36)
[2017-01-10] MEDS: RANITIDINE HCL 150 MG TABLET (FP) PO SCH ×2 (10:37→22:14)
[2017-01-10] MEDS: NICOTINE 21 MG/24 HOURS TOPICAL PATCH TD SCH (10:37)
[2017-01-10] MEDS ORDERED: METHADONE HCL 10 MG TABLET PO ONE (10:59)
[2017-01-10] MEDS ORDERED: METHADONE 20 MG, METHADONE 5 MG PO ONE (12:15)
--- NOTE | 2017-01-10 20:01 | PN ---
BHS Progress Note (SOAP) Subjective: Sweating, Stomach Cramping, Constipation. Objective: PT. A & OX 3, OBSERVED AMBULATING ON UNIT. 01/10/17 20:00 Vital Signs Temperature 98.4 F 01/10/17 18:34 Pulse Rate 74 01/10/17 18:34 Respiratory Rate 18 01/10/17 18:34 Blood Pressure 94/65 01/10/17 18:34 O2 Sat by Pulse Oximetry (%) Laboratory Tests 01/07/17 01/08/17 01/08/17 23:10 07:00 07:00 WBC 4.2 RBC 3.86 Hgb 13.5 Hct 39.4 MCV 102.0 H MCHC 34.2 RDW 13.1 Plt Count 116 L D MPV 9.7 Sodium 142 Potassium 4.1 Chloride 105 Carbon Dioxide 30 D Anion Gap 7 L BUN 15 D Creatinine 0.9 Creat Clearance w eGFR > 60 Random Glucose 111 H Calcium 8.8 Total Bilirubin 1.1 H D AST 66 H D ALT 51 D Alkaline Phosphatase 80 Total Protein 6.8 Albumin 3.8 Urine Color Dkyellow Urine Appearance Clear Urine pH 6.0 Ur Specific [place] 1.015 Urine Protein Negative Urine Glucose (UA) Negative Urine Ketones Trace H Urine Blood Negative Urine Nitrite Negative Urine Bilirubin Negative Urine Urobilinogen 4.0 e.u/dl H Ur Leukocyte Esterase Negative RPR Titer 01/08/17 07:00 WBC RBC Hgb Hct MCV MCHC RDW Plt Count MPV Sodium Potassium Chloride Carbon Dioxide Anion Gap BUN Creatinine Creat Clearance w eGFR Random Glucose Calcium Total Bilirubin AST ALT Alkaline Phosphatase Total Protein Albumin Urine Color Urine Appearance Urine pH Ur Specific [place] Urine Protein Urine Glucose (UA) Urine Ketones Urine Blood Urine Nitrite Urine Bilirubin Urine Urobilinogen Ur Leukocyte Esterase RPR Titer Nonreactive LABS NOTED. 01/10/17 20:01 Assessment: 01/10/17 20:01 WITHDRAWAL SYMPTOMS. Plan: CONTINUE DETOX. AM (MAINTENANCE) DOSE OF METHADONE (25 MG) INITIALLY HELD DUE TO LOW BP. DOSE ORDERED AND GIVEN LATER IN AM WHEN BP RETURNED APPROPRIATE LEVEL. ADVISED PT. TO FOLLOW-UP WITH OFFICE CLEANER AFTER DISCHARGE FROM DETOX FOR GENERAL MEDICAL ASSESSMENT AND FOR LOW ADMISSION PLATELET LEVEL.
[2017-01-10] MEDS: chlordiazePOXIDE HCL 10 MG CAPSULE PO SCH (22:15)
[2017-01-10] MEDS: THIAMINE HCL 100 MG TABLET (FP) PO SCH (22:15)
[2017-01-10] MEDS: diphenhydrAMINE HCL 50 MG CAPSULE PO PRN (22:15)
[2017-01-11] MEDS ORDERED: METHADONE HCL 10 MG TABLET ONE (05:33)
[2017-01-11] MEDS ORDERED: METHADONE HCL 5 MG TABLET ONE (05:34)
[2017-01-11] MEDS: chlordiazePOXIDE HCL 10 MG CAPSULE PO SCH (05:34)
[2017-01-11] MEDS: METHADONE 20 MG, METHADONE 5 MG PO SCH (05:34)
[2017-01-11] MEDS: PATIENT'S OWN MEDICATION (NON-FORMULARY) (Abacavir Sulfate/Lamivudine [Epzicom -] 1 TAB) PO SCH (07:40)
[2017-01-11 07:42] VITALS: BP 94/61; PULSE 76; TEMP 97.2
[2017-01-11] MEDS: ATAZANAVIR PO SCH (07:45)
[2017-01-11] MEDS: RANITIDINE HCL 150 MG TABLET (FP) PO SCH (09:47)
[2017-01-11] MEDS: PRENATAL VITAMINS W/ FOLIC ACID TABLET (FP) PO SCH (09:47)
[2017-01-11] MEDS: NICOTINE 21 MG/24 HOURS TOPICAL PATCH TD SCH (09:47)
--- NOTE | 2017-01-11 11:11 | DS ---
[facility] Detox Discharge Summary Admission Date: 01/07/17 Discharge Date: 01/11/17 - History Present History: Alcohol Dependence, Cannabis Dependence, MMTP Pertinent Past History: HIV infection Hep C - Physical Exam Results Vital Signs: Vital Signs Temperature 97.2 F L 01/11/17 07:40 Pulse Rate 76 01/11/17 07:40 Respiratory Rate 20 01/11/17 07:40 Blood Pressure 94/61 01/11/17 07:40 O2 Sat by Pulse Oximetry (%) Pertinent Admission Physical Exam Findings: Withdrawal sx. Laboratory Last Values WBC 4.2 K/mm3 (4.0-10.0) 01/08/17 07:00 RBC 3.86 M/mm3 (3.60-5.2) 01/08/17 07:00 Hgb 13.5 GM/dL (10.7-15.3) 01/08/17 07:00 Hct 39.4 % (32.4-45.2) 01/08/17 07:00 MCV 102.0 fl (80-96) H 01/08/17 07:00 MCHC 34.2 g/dl (32.0-36.0) 01/08/17 07:00 RDW 13.1 % (11.6-15.6) 01/08/17 07:00 Plt Count 116 K/MM3 (134-434) L D 01/08/17 07:00 MPV 9.7 fl (7.5-11.1) 01/08/17 07:00 Sodium 142 mmol/L (136-145) 01/08/17 07:00 Potassium 4.1 mmol/L (3.5-5.1) 01/08/17 07:00 Chloride 105 mmol/L (98-107) 01/08/17 07:00 Carbon Dioxide 30 mmol/L (21-32) D 01/08/17 07:00 Anion Gap 7 (8-16) L 01/08/17 07:00 BUN 15 mg/dL (7-18) D 01/08/17 07:00 Creatinine 0.9 mg/dL (0.55-1.02) 01/08/17 07:00 Creat Clearance w eGFR > 60 (>60) 01/08/17 07:00 Random Glucose 111 mg/dL (74-106) H 01/08/17 07:00 Calcium 8.8 mg/dL (8.5-10.1) 01/08/17 07:00 Total Bilirubin 1.1 mg/dL (0.2-1.0) H D 01/08/17 07:00 AST 66 U/L (15-37) H D 01/08/17 07:00 ALT 51 U/L (12-78) D 01/08/17 07:00 Alkaline Phosphatase 80 U/L (45-117) 01/08/17 07:00 Total Protein 6.8 g/dl (6.4-8.2) 01/08/17 07:00 Albumin 3.8 g/dl (3.4-5.0) 01/08/17 07:00 Urine Color Dkyellow 01/07/17 23:10 Urine Appearance Clear 01/07/17 23:10 Urine pH 6.0 (5.0-8.0) 01/07/17 23:10 Ur Specific [place] 1.015 (1.005-1.025) 01/07/17 23:10 Urine Protein Negative (NEGATIVE) 01/07/17 23:10 Urine Glucose (UA) Negative (NEGATIVE) 01/07/17 23:10 Urine Ketones Trace (NEGATIVE) H 01/07/17 23:10 Urine Blood Negative (NEGATIVE) 01/07/17 23:10 Urine Nitrite Negative (NEGATIVE) 01/07/17 23:10 Urine Bilirubin Negative (NEGATIVE) 01/07/17 23:10 Urine Urobilinogen 4.0 e.u/dl E.U./dl (0.2-1.0) H 01/07/17 23:10 Ur Leukocyte Esterase Negative (NEGATIVE) 01/07/17 23:10 RPR Titer Nonreactive (NONREACTIVE) 01/08/17 07:00 labs noted - Treatment Hospital Course: Detox Protocol Followed, Detoxed Safely, Responded well, Discharged Condition Good, Rehab Referral Accepted Patient has Accepted a Rehab Referral to: OTP & IOP - Medication Discharge Medications: Ambulatory Orders Abacavir Sulfate/Lamivudine [Epzicom] 1 tab PO DAILY 05/19/12 Atazanavir [Reyataz -] 400 mg PO DAILY 12/01/16 - Diagnosis (1) Alcohol dependence with uncomplicated withdrawal Status: Acute (2) Nicotine dependence Status: Acute Qualifiers: Nicotine product type: cigarettes Substance use status: in withdrawal Qualified Code(s): F17.213 - Nicotine dependence, cigarettes, with withdrawal (3) Opioid dependence on agonist therapy Status: Acute (4) Substance induced mood disorder Status: Acute (5) Cannabis dependence, uncomplicated Status: Chronic (6) HIV (human immunodeficiency virus infection) Status: Chronic - AMA Did Patient Leave Against Medical Advice: No
== END 2017-01-11 10:53 | disposition home or self-care (01) | DRG 773 ==
LOC: YASAS 12:10 → Y6N 18:08
PROVIDERS: ADMIT Internal Medicine Addiction Medicine; ATTEND Internal Medicine Addiction Medicine
PROC: HZ2ZZZZ Detoxification Services for Substance Abuse Treatment (ICD-10-PCS; principal; 2017-01-07)
DX: F10.230 Alcohol dependence with withdrawal, uncomplicated (principal); F11.20 Opioid dependence, uncomplicated; F12.20 Cannabis dependence, uncomplicated; F17.210 Nicotine dependence, cigarettes, uncomplicated; F19.24 Other psychoactive substance dependence with psychoactive substance-induced mood disorder; Z21 Asymptomatic human immunodeficiency virus [HIV] infection status; R00.0 Tachycardia, unspecified; B18.2 Chronic viral hepatitis C; Z86.79 Personal history of other diseases of the circulatory system
CPT/HCPCS: 36415; 80053; 81003; 85027; 86593; 93005; 93010

== ENCOUNTER 2017-12-29 14:58 | Inpatient (IN) | payer OTHER ==
[2017-12-29 17:59] VITALS: BMI 28.9
--- NOTE | 2017-12-29 21:57 | HP ---
CIWA Score - CIWA Score Nausea/Vomitin Muscle Tremors: 4-Moderate,w/Arms Extend Anxiety: 4-Mod. Anxious/Guarded Agitation: 4-Moderately Restless Paroxysmal Sweats: 3 Orientation: 0-Oriented Tacttile Disturbances: 3-Moderate Itch/Numb/Burn Auditory Disturbances: 0-None Visual Disturbances: 0-None Headache: 2-Mild CIWA-Ar Total Score: 23 Admission ROS BHS - HPI Chief Complaint: c/o withdrawal sx's from alcohol and benzo dependence Allergies/Adverse Reactions: Allergies Allergy/AdvReac Type Severity Reaction Status Date / Time No Known Allergies Allergy Verified 12/29/17 19:38 History of Present Illness: 57 Y.O. FEMALE WITH LONG HX/O ALCOHOLISM, BENZO AND OPIOID DEPENDENCE HERE OFR DETOX. CLIENT WAS LAST HERE . REFERRED TODAY BY HER DRUG COUNSELOR. SHE REPORTS SHE IS PRESENTLY ON MMTP 23 MG DAILY AT [facility]. SHE REPORTS HER LDM WAS YESTERDAY. UTOX NEG FOR MTD. METHADONE DOSE PENDING VERIFICATION. REPORTS LONGEST CLEAN TIME 3 YEARS. NOW RELAPSING AFTER 5 MONTHS SOBRIETY THIS PAST OCTOBER. PMHX: HIV, DENIES MENTAL HEALTH, SI/HI, A/V HALLUCINATIONS Exam Limitations: No Limitations - Ebola screening Have you traveled outside of the country in the last 21 days: No (N) Have you had contact with anyone from an Ebola affected area: No Have you been sick,other than usual withdrawal symptoms: No Do you have a fever: No - Review of Systems Constitutional: Chills, Loss of Appetite, Night Sweats, Changes in sleep EENT: reports: Dental Problems (DENTURES) Respiratory: reports: No Symptoms reported Cardiac: reports: No Symptoms Reported GI: reports: Diarrhea, Nausea, Poor Appetite, Poor Fluid Intake, Vomiting : reports: No Symptoms Reported Musculoskeletal: reports: No Symptoms Reported Integumentary: reports: No Symptoms Reported Neuro: reports: No Symptoms reported Endocrine: reports: No Symptoms Reported Hematology: reports: No Symptoms Reported Psychiatric: reports: Anxious Other Systems: Reviewed and Negative Patient History - Patient Medical History Hx Anemia: No Hx Asthma: No Hx Chronic Obstructive Pulmonary Disease (COPD): No Hx Cancer: No Hx Cardiac Disorders: No Hx Congestive Heart Failure: No Hx Hypertension: No Hx Hypercholesterolemia: No Hx Pacemaker: No HX Cerebrovascular Accident: No Hx Seizures: No Hx Dementia: No Hx Diabetes: No Hx Gastrointestinal Disorders: No Hx Liver Disease: No Hx Genitourinary Disorders: No Hx Sexually Transmitted Disorders: No Hx Renal Disease (ESRD): No Hx Thyroid Disease: No Hx Human Immunodeficiency Virus (HIV): Yes (SINCE 2008; ON EPZICOM AND REYATAZ BUT NOT COMPLIANT DUE TO DRINKING.) Hx Hepatitis C: Yes (S/P HARVONI TXMENT) Hx Depression: No Hx Suicide Attempt: No Hx Bipolar Disorder: No Hx Schizophrenia: No Other Medical History: DENIES - Patient Surgical History Past Surgical History: Yes Hx Neurologic Surgery: No Hx Cataract Extraction: No Hx Cardiac Surgery: No Hx Lung Surgery: No Hx Breast Surgery: No Hx Breast Biopsy: No Hx Abdominal Surgery: Yes (ABSCESS exploratory sx in 2000) Hx Appendectomy: Yes (7 YEARS OLD) Hx Cholecystectomy: No Hx Genitourinary Surgery: No Hx Section: No Hx Orthopedic Surgery: No Hx Hysterectomy: No Other Surgical History: lower back sx in 2000 SEQUALA OF EXPLORATORY Anesthesia Reaction: No - PPD History Documented Results: Positive w/o proof - Reproductive History Patient is a Female of Child Bearing Age (11 -55 yrs old): No Patient : No ([place] [facility] [place] - Smoking Cessation Smoking history: Current every day smoker Have you smoked in the past 12 months: Yes Aproximately how many cigarettes per day: 20 Cigars Per Day: 0 Hx Chewing Tobacco Use: No Initiated information on smoking cessation: Yes 'Breaking Loose' booklet given: 12/29/17 - Substance & Tx. History Hx Alcohol Use: Yes Hx Substance Use: Yes Substance Use Type: Alcohol, Tranquilizers Hx Substance Use Treatment: Yes ([facility]) - Substances Abused Alcohol Route: Oral Frequency: Daily Amount used: Beer 4 of 40 oz {malt liqour} Age of first use: 18 Date of Last Use: 12/29/17 Benzodiazepine (Klonopin) Route: Oral Frequency: 1-2 times per week Amount used: 1mg Age of first use: 56 Date of Last Use: 12/29/17 Family Disease History - Family Disease History Family Disease History: Heart Disease: Mother (), CA: Father () Admission Physical Exam BHS - Vital Signs Vital Signs: Vital Signs - 24 hr 12/29/17 17:56 Temperature 99.1 F Pulse Rate 109 H Respiratory 20 Rate Blood Pressure 143/83 - Physical General Appearance: Yes: Appropriately Dressed, Alcohol on Breath, Tremorous, Anxious HEENTM: Yes: EOMI, Normocephalic, Normal Voice, ANGEL, Pharynx Normal, Other ( EDENTULOUS) Respiratory: Yes: Chest Non-Tender, Lungs Clear, Normal Breath Sounds, No Respiratory Distress, No Accessory Muscle Use Neck: Yes: No masses,lesions,Nodules, Supple, Trachea in good position Breast: Yes: Breast Exam Deferred Cardiology: Yes: Regular Rhythm, Regular Rate, S1, S2 Abdominal: Yes: Non Tender, Soft, Increased Bowel Sounds, Protuberent Genitourinary: Yes: Within Normal Limits Back: Yes: Normal Inspection Musculoskeletal: Yes: full range of Motion, Gait Steady Extremities: Yes: Normal Capillary Refill, Normal Range of Motion, Non-Tender, Tremors Neurological: Yes: mold cooler II-XII NML intact, Fully Oriented, Alert, Motor Strength 5/5 Integumentary: Yes: Warm, Other (FLUSHED) Lymphatic: Yes: Within Normal Limits - Diagnostic (1) History of positive PPD Current Visit: Yes Status: Chronic (2) Alcohol dependence with uncomplicated withdrawal Current Visit: Yes Status: Chronic (3) Nicotine dependence Current Visit: Yes Status: Chronic Qualifiers: Nicotine product type: cigarettes Substance use status: uncomplicated Qualified Code(s): F17.210 - Nicotine dependence, cigarettes, uncomplicated (4) Substance induced mood disorder Current Visit: Yes Status: Suspected (5) HIV (human immunodeficiency virus infection) Current Visit: Yes Status: Chronic (6) Methadone maintenance therapy patient Current Visit: Yes Status: Chronic Comment: 23 MG VERIFICATION PENDING (7) Anxiety Current Visit: Yes Status: Suspected Cleared for Admission [facility] - Detox or Rehab [facility] Level of Care: Medically Managed Detox Regimen/Protocol: Librium Claeared for Rehab Admission: No [facility] Breath Alcohol Content Breath Alcohol Content: 0.179 Urine Pregancy Test - Result Urine Test Results: Negative- NO Line Present Urine Drug Screen - Results Drug Screen Negative: No Urine Drug Screen Results: TCA-Tricyclic Antidepress
[2017-12-29] MEDS ORDERED: MELATONIN 5 MG TABLETS PO PRN (22:00)
[2017-12-29] MEDS ORDERED: LOPERAMIDE HCL 2 MG CAPSULE PO PRN (22:02)
[2017-12-29] MEDS ORDERED: MAGNESIUM HYDROX 2400MG/30ML ORAL SUSPENSION 30 ML CUP PO PRN (22:02)
[2017-12-29] MEDS ORDERED: MAGNESIUM CITRATE 300 ML BOTTLE PO PRN (22:02)
[2017-12-29] MEDS ORDERED: MAG HYDROX/AL HYDROX/SIMETH 30 ML UNIT-DOSE CUP PO PRN (22:02)
[2017-12-29] MEDS ORDERED: P-EPHED 60MG/TRIPROLIDI 2.5MG TABLET PO PRN (22:02)
[2017-12-29] MEDS ORDERED: hydrOXYzine PAMOATE 50 MG CAPSULE (FP) PO PRN (22:02)
[2017-12-29] MEDS ORDERED: ACETAMINOPHEN 325 MG TABLET (FP) PO PRN (22:02)
[2017-12-29] MEDS ORDERED: IBUPROFEN 400 MG TABLET (FP) PO PRN (22:02)
[2017-12-29] MEDS ORDERED: MENTHOL/PHENOL 1 EACH UD MM PRN (22:02)
[2017-12-29] MEDS ORDERED: chlordiazePOXIDE HCL 25 MG CAPSULE PO PRN (22:02)
[2017-12-29] MEDS ORDERED: guaiFENesin/D-METHORPHAN HB 10 ML UNIT-DOSE CUPS PO PRN (22:02)
[2017-12-29] MEDS ORDERED: NICOTINE POLACRILEX 2 MG GUM BC PRN (22:02)
[2017-12-29] MEDS: chlordiazePOXIDE HCL 25 MG CAPSULE PO SCH (23:20)
[2017-12-30] MEDS: chlordiazePOXIDE HCL 25 MG CAPSULE PO SCH ×4 (04:09→22:14)
[2017-12-30] MEDS ORDERED: METHADONE HCL 10 MG TABLET PO SCH (09:00)
[2017-12-30] MEDS ORDERED: ATAZANAVIR SO4 200 MG CAPSULE PO SCH ×2 (10:00→10:02)
[2017-12-30 10:13] LABS: URINE APPEARANCE CLEAR; URINE BILIRUBIN NEGATIVE (<2.0 mg/dL); URINE COLOR YELLOW; URINE GLUCOSE (UA) NEGATIVE (NEGATIVE); URINE KETONE TRACE (NEGATIVE); URINE LEUK ESTERASE NEGATIVE (NEGATIVE); URINE NITRITE NEGATIVE (NEGATIVE); URINE PROTEIN NEGATIVE (NEGATIVE); URINE UROBILINOGEN NEGATIVE mg/dL (0.2-1.0)
[2017-12-30 10:18] LABS: CHLORIDE 104 mmol/L (98-107); HEMATOCRIT 38.9 % (32.4-45.2); HEMOGLOBIN 13.6 GM/dL (10.7-15.3); MCH 34.7 pg (25.7-33.7); MEAN CELL VOLUME 99.2 fl (80-96); MEAN PLT VOLUME 9.9 fl (7.5-11.1); PLATELET COUNT 134 K/MM3 (134-434); POTASSIUM 4.1 mmol/L (3.5-5.1); RBC 3.92 M/mm3 (3.60-5.2); SODIUM 141 mmol/L (136-145); WHITE BLOOD COUNT 4.1 K/mm3 (4.0-10.0)
[2017-12-30] MEDS: PRENATAL VITAMINS W/ FOLIC ACID TABLET (FP) PO SCH (10:25)
[2017-12-30] MEDS: NICOTINE 21 MG/24 HOURS TOPICAL PATCH TD SCH (10:25)
[2017-12-30 10:27] LABS: ALBUMIN 3.5 g/dl (3.4-5.0); ALK PHOS 69 U/L (45-117); ANION GAP 9 (8-16); BILIRUBIN,TOTAL 1.4 mg/dL (0.2-1.0); BLOOD UREA NITROGEN 13 mg/dL (7-18); CALCIUM 8.4 mg/dL (8.5-10.1); CO2 28 mmol/L (21-32); CREATININE 0.8 mg/dL (0.55-1.02); GLUCOSE,RANDOM 84 mg/dL (74-106); SGOT/AST 145 U/L (15-37); SGPT/ALT 112 U/L (12-78); TOT PROT 6.8 g/dl (6.4-8.2)
[2017-12-30] MEDS ORDERED: METHADONE 20 MG, METHADONE 5 MG PO ONE (11:00)
--- NOTE | 2017-12-30 11:47 | PN ---
[facility] CIWA - CIWA Score Nausea/Vomitin-Mild Nausea/No Vomiting Muscle Tremors: 4-Moderate,w/Arms Extend Anxiety: 5 Agitation: 5 Paroxysmal Sweats: 1-Minimal Palms Moist Orientation: 1-Uncertain about Date Tacttile Disturbances: 2-Mild Itch/Numbness/Burn Auditory Disturbances: 0-None Visual Disturbances: 0-None Headache: 0-None Present CIWA-Ar Total Score: 19 BHS Progress Note (SOAP) Subjective: tremor sweat anxiety restlessness trouble sleep at night gi distress patient is on methadone maintenance dosage of 23 mg Objective: 12/30/17 11:44 Vital Signs Temperature 97.9 F 12/30/17 10:21 Pulse Rate 104 H 12/30/17 10:30 Respiratory Rate 16 12/30/17 10:30 Blood Pressure 104/58 12/30/17 10:21 O2 Sat by Pulse Oximetry (%) Laboratory Last Values WBC 4.1 K/mm3 (4.0-10.0) 12/30/17 07:30 RBC 3.92 M/mm3 (3.60-5.2) 12/30/17 07:30 Hgb 13.6 GM/dL (10.7-15.3) 12/30/17 07:30 Hct 38.9 % (32.4-45.2) 12/30/17 07:30 MCV 99.2 fl (80-96) H 12/30/17 07:30 MCH 34.7 pg (25.7-33.7) H 12/30/17 07:30 MCHC 35.0 g/dl (32.0-36.0) 12/30/17 07:30 RDW 14.0 % (11.6-15.6) 12/30/17 07:30 Plt Count 134 K/MM3 (134-434) D 12/30/17 07:30 MPV 9.9 fl (7.5-11.1) 12/30/17 07:30 Sodium 141 mmol/L (136-145) 12/30/17 07:30 Potassium 4.1 mmol/L (3.5-5.1) 12/30/17 07:30 Chloride 104 mmol/L (98-107) 12/30/17 07:30 Carbon Dioxide 28 mmol/L (21-32) 12/30/17 07:30 Anion Gap 9 (8-16) 12/30/17 07:30 BUN 13 mg/dL (7-18) 12/30/17 07:30 Creatinine 0.8 mg/dL (0.55-1.02) 12/30/17 07:30 Creat Clearance w eGFR > 60 (>60) 12/30/17 07:30 Random Glucose 84 mg/dL (74-106) 12/30/17 07:30 Calcium 8.4 mg/dL (8.5-10.1) L 12/30/17 07:30 Total Bilirubin 1.4 mg/dL (0.2-1.0) H D 12/30/17 07:30 AST 145 U/L (15-37) H 12/30/17 07:30 ALT 112 U/L (12-78) H 12/30/17 07:30 Alkaline Phosphatase 69 U/L (45-117) 12/30/17 07:30 Total Protein 6.8 g/dl (6.4-8.2) 12/30/17 07:30 Albumin 3.5 g/dl (3.4-5.0) 12/30/17 07:30 Urine Color Yellow 12/30/17 08:00 Urine Appearance Clear 12/30/17 08:00 Urine pH 6.0 (5.0-8.0) 12/30/17 08:00 Ur Specific [place] 1.019 (1.001-1.035) 12/30/17 08:00 Urine Protein Negative (NEGATIVE) 12/30/17 08:00 Urine Glucose (UA) Negative (NEGATIVE) 12/30/17 08:00 Urine Ketones Trace (NEGATIVE) H 12/30/17 08:00 Urine Blood Negative (NEGATIVE) 12/30/17 08:00 Urine Nitrite Negative (NEGATIVE) 12/30/17 08:00 Urine Bilirubin Negative (<2.0 mg/dL) 12/30/17 08:00 Urine Urobilinogen Negative mg/dL (0.2-1.0) 12/30/17 08:00 Ur Leukocyte Esterase Negative (NEGATIVE) 12/30/17 08:00 lab noted Assessment: 12/30/17 11:45 withdrawal sx methadone maintenance Plan: continue detox received pharmacist called that 23 mg can not be calculated as tablet patient stated that last admission 25 mg of methadone was tolerated well and worked well for her
--- NOTE | 2017-12-30 12:03 | EKG ---
Test Reason : Blood Pressure : / mmHG Vent. Rate : 098 BPM Atrial Rate : 098 BPM P-R Int : 134 ms QRS Dur : 080 ms QT Int : 376 ms P-R-T Axes : 069 085 051 degrees QTc Int : 480 ms NORMAL SINUS RHYTHM SEPTAL INFARCT , AGE UNDETERMINED ABNORMAL ECG WHEN COMPARED WITH ECG OF 16-JUN-2017 17:17, SEPTAL INFARCT IS NOW PRESENT Confirmed by LORENE BAILEY, BRIAN ([id number]) on 12/30/2017 12:03:34 PM Referred By: Confirmed By:BRIAN PAULSON MD
[2017-12-30] MEDS ORDERED: METHADONE HCL 5 MG TABLET ONE (12:22)
[2017-12-30] MEDS ORDERED: METHADONE HCL 10 MG TABLET ONE (12:23)
[2017-12-30] MEDS: ATAZANAVIR SO4 200 MG CAPSULE PO SCH (12:33)
[2017-12-30] MEDS: PATIENT'S OWN MEDICATION (NON-FORMULARY) (Abacavir Sulfate/Lamivudine [Epzicom -] 1 TAB) PO SCH (12:33)
--- NOTE | 2017-12-30 19:31 | CONSULT ---
[facility] Psychiatric Consult - Data Date of interview: 12/30/17 Admission source: [facility] Identifying data: Another admission to [facility] for this 57 y/o female from [place] ancestry seeking detox treatment on for alcohol, opioid and benzodiazepine dependence.Patient is ,no children,domiciled, unemployed and supported on [employer] funds. Substance Abuse History: Confirmed by the patient in this interview.Smoking history: Current every day smoker. Have you smoked in the past 12 months: Yes. Aproximately how many cigarettes per day: 20. Cigars Per Day: 0. Hx Chewing Tobacco Use: No. Initiated information on smoking cessation: Yes. 'Breaking Loose' booklet given: 12/29/17. - Substance & Tx. History. Hx Alcohol Use: Yes. Hx Substance Use: Yes. Substance Use Type: Alcohol, Tranquilizers. Hx Substance Use Treatment: Yes ([facility]). - Substances Abused. Alcohol. Route: Oral. Frequency: Daily. Amount used: Beer 4 of 40 oz {malt liqour}. Age of first use: 18. Date of Last Use: 12/29/17. Benzodiazepine (Klonopin). Route: Oral. Frequency: 1-2 times per week. Amount used: 1mg. Age of first use: 56. Date of Last Use: 12/29/17 Medical History: HIV infection since 2008 (on HAART medications),hepatitis C, past history of surgeries (exploratory laparotomy in 2000 for abcess + discal issues in lumbar spine) and a remote history of appendectomy. Psychiatric History: Patient denies history of psychiatric hospitalizations.Ms Abdi is currently on methadone maintenance (25 mg/day) at the [facility] program in [facility].Patient denies istory of suicide attempts. Physical/Sexual Abuse/Trauma History: Patient denies. Additional Comment: Urine Drug Screen Results: TCA-Tricyclic Antidepressant. Mental Status Exam - Mental Status Exam Alert and Oriented to: Time, Place, Person Cognitive Function: Good Patient Appearance: Well Groomed Mood: Euthymic Affect: Appropriate, Normal Range Patient Behavior: Appropriate (friendly), Cooperative Speech Pattern: Clear, Appropriate Voice Loudness: Normal Thought Process: Intact, Goal Oriented Thought Disorder: Not Present Hallucinations: Denies Suicidal Ideation: Denies Homicidal Ideation: Denies Insight/Judgement: Poor Sleep: Well Appetite: Good Muscle strength/Tone: Normal Gait/Station: Normal Psychiatric Findings - Problem List ([place] 1, 2,3) (1) Opioid dependence on agonist therapy Current Visit: Yes Status: Acute (2) Alcohol dependence with uncomplicated withdrawal Current Visit: Yes Status: Acute (3) Nicotine dependence Current Visit: Yes Status: Acute Qualifiers: Nicotine product type: cigarettes Substance use status: uncomplicated Qualified Code(s): F17.210 - Nicotine dependence, cigarettes, uncomplicated - Initial Treatment Plan Initial Treatment Plan: Psychoeducation.Detoxification.Observation.
[2017-12-30] MEDS ORDERED: THIAMINE HCL 100 MG TABLET (FP) PO SCH (22:00)
[2017-12-31] MEDS ORDERED: METHADONE HCL 5 MG TABLET ONE (04:26)
[2017-12-31] MEDS ORDERED: METHADONE HCL 10 MG TABLET ONE (04:27)
[2017-12-31] MEDS: chlordiazePOXIDE HCL 25 MG CAPSULE PO SCH ×3 (05:39→17:19)
[2017-12-31] MEDS ORDERED: METHADONE 20 MG, METHADONE 5 MG PO SCH (06:00)
[2017-12-31] MEDS: ATAZANAVIR SO4 200 MG CAPSULE PO SCH (08:40)
[2017-12-31] MEDS: PATIENT'S OWN MEDICATION (NON-FORMULARY) (Abacavir Sulfate/Lamivudine [Epzicom -] 1 TAB) PO SCH (09:00)
[2017-12-31] MEDS: PRENATAL VITAMINS W/ FOLIC ACID TABLET (FP) PO SCH (10:18)
[2017-12-31] MEDS: NICOTINE 21 MG/24 HOURS TOPICAL PATCH TD SCH (10:18)
--- NOTE | 2017-12-31 10:53 | PN ---
[facility] CIWA - CIWA Score Nausea/Vomitin-No Nausea/No Vomiting Muscle Tremors: 1-None Visible, but [place] Anxiety: 3 Agitation: 3 Paroxysmal Sweats: 1-Minimal Palms Moist Orientation: 0-Oriented Tacttile Disturbances: 1-Very Mild Itch/Numbness Auditory Disturbances: 0-None Visual Disturbances: 0-None Headache: 1-Very Mild CIWA-Ar Total Score: 10 S Progress Note (SOAP) Subjective: reported feeling better today slept throughout the night less tremor no sweat mild anxiousness alert oriented x 3 preferred to joint methadone program community services on 01/01/18 Objective: 12/31/17 10:56 Vital Signs Temperature 98.1 F 12/31/17 10:21 Pulse Rate 90 12/31/17 10:21 Respiratory Rate 18 12/31/17 10:21 Blood Pressure 125/73 12/31/17 10:21 O2 Sat by Pulse Oximetry (%) Laboratory Last Values WBC 4.1 K/mm3 (4.0-10.0) 12/30/17 07:30 RBC 3.92 M/mm3 (3.60-5.2) 12/30/17 07:30 Hgb 13.6 GM/dL (10.7-15.3) 12/30/17 07:30 Hct 38.9 % (32.4-45.2) 12/30/17 07:30 MCV 99.2 fl (80-96) H 12/30/17 07:30 MCH 34.7 pg (25.7-33.7) H 12/30/17 07:30 MCHC 35.0 g/dl (32.0-36.0) 12/30/17 07:30 RDW 14.0 % (11.6-15.6) 12/30/17 07:30 Plt Count 134 K/MM3 (134-434) D 12/30/17 07:30 MPV 9.9 fl (7.5-11.1) 12/30/17 07:30 Sodium 141 mmol/L (136-145) 12/30/17 07:30 Potassium 4.1 mmol/L (3.5-5.1) 12/30/17 07:30 Chloride 104 mmol/L (98-107) 12/30/17 07:30 Carbon Dioxide 28 mmol/L (21-32) 12/30/17 07:30 Anion Gap 9 (8-16) 12/30/17 07:30 BUN 13 mg/dL (7-18) 12/30/17 07:30 Creatinine 0.8 mg/dL (0.55-1.02) 12/30/17 07:30 Creat Clearance w eGFR > 60 (>60) 12/30/17 07:30 Random Glucose 84 mg/dL (74-106) 12/30/17 07:30 Calcium 8.4 mg/dL (8.5-10.1) L 12/30/17 07:30 Total Bilirubin 1.4 mg/dL (0.2-1.0) H D 12/30/17 07:30 AST 145 U/L (15-37) H 12/30/17 07:30 ALT 112 U/L (12-78) H 12/30/17 07:30 Alkaline Phosphatase 69 U/L (45-117) 12/30/17 07:30 Total Protein 6.8 g/dl (6.4-8.2) 12/30/17 07:30 Albumin 3.5 g/dl (3.4-5.0) 12/30/17 07:30 Urine Color Yellow 12/30/17 08:00 Urine Appearance Clear 12/30/17 08:00 Urine pH 6.0 (5.0-8.0) 12/30/17 08:00 Ur Specific [place] 1.019 (1.001-1.035) 12/30/17 08:00 Urine Protein Negative (NEGATIVE) 12/30/17 08:00 Urine Glucose (UA) Negative (NEGATIVE) 12/30/17 08:00 Urine Ketones Trace (NEGATIVE) H 12/30/17 08:00 Urine Blood Negative (NEGATIVE) 12/30/17 08:00 Urine Nitrite Negative (NEGATIVE) 12/30/17 08:00 Urine Bilirubin Negative (<2.0 mg/dL) 12/30/17 08:00 Urine Urobilinogen Negative mg/dL (0.2-1.0) 12/30/17 08:00 Ur Leukocyte Esterase Negative (NEGATIVE) 12/30/17 08:00 RPR Titer Nonreactive (NONREACTIVE) 12/30/17 07:30 lab noted 12/31/17 11:08 repeat result pending Assessment: 12/31/17 11:15 mild withdrawal sx Plan: medically supervised detox
[2017-12-31 17:07] VITALS: BP 90/50; PULSE 80; TEMP 98.1
--- NOTE | 2017-12-31 20:06 | DS ---
[facility] Detox Discharge Summary Admission Date: 12/29/17 Discharge Date: 12/31/17 - History Present History: Alcohol Dependence, Opioid Dependence Additional Comments: Patient in no apparent distress. No suicidal / homicidal ideation. Patient medically stable. Patient insist on leaving today, although it advise for her to stay and continue to treatment. The patient verbalizes she understands the risks and complications that may result from the refusal of medical care which may include and permanent disability and has the mental capacity to make such decision. Patient advised to seek medical care at local ER , PCP or urgent care if symptoms worsen. - Physical Exam Results Vital Signs: Vital Signs Temperature 98.1 F 12/31/17 17:06 Pulse Rate 80 12/31/17 17:06 Respiratory Rate 18 12/31/17 17:06 Blood Pressure 90/50 12/31/17 17:06 O2 Sat by Pulse Oximetry (%) Pertinent Admission Physical Exam Findings: Vital Signs Temperature 98.1 F 12/31/17 17:06 Pulse Rate 80 12/31/17 17:06 Respiratory Rate 18 12/31/17 17:06 Blood Pressure 90/50 12/31/17 17:06 O2 Sat by Pulse Oximetry (%) Laboratory Last Values WBC 4.1 K/mm3 (4.0-10.0) 12/30/17 07:30 RBC 3.92 M/mm3 (3.60-5.2) 12/30/17 07:30 Hgb 13.6 GM/dL (10.7-15.3) 12/30/17 07:30 Hct 38.9 % (32.4-45.2) 12/30/17 07:30 MCV 99.2 fl (80-96) H 12/30/17 07:30 MCH 34.7 pg (25.7-33.7) H 12/30/17 07:30 MCHC 35.0 g/dl (32.0-36.0) 12/30/17 07:30 RDW 14.0 % (11.6-15.6) 12/30/17 07:30 Plt Count 134 K/MM3 (134-434) D 12/30/17 07:30 MPV 9.9 fl (7.5-11.1) 12/30/17 07:30 Sodium 141 mmol/L (136-145) 12/30/17 07:30 Potassium 4.1 mmol/L (3.5-5.1) 12/30/17 07:30 Chloride 104 mmol/L (98-107) 12/30/17 07:30 Carbon Dioxide 28 mmol/L (21-32) 12/30/17 07:30 Anion Gap 9 (8-16) 12/30/17 07:30 BUN 13 mg/dL (7-18) 12/30/17 07:30 Creatinine 0.8 mg/dL (0.55-1.02) 12/30/17 07:30 Creat Clearance w eGFR > 60 (>60) 12/30/17 07:30 Random Glucose 84 mg/dL (74-106) 12/30/17 07:30 Calcium 8.4 mg/dL (8.5-10.1) L 12/30/17 07:30 Total Bilirubin 1.4 mg/dL (0.2-1.0) H D 12/30/17 07:30 AST 145 U/L (15-37) H 12/30/17 07:30 ALT 112 U/L (12-78) H 12/30/17 07:30 Alkaline Phosphatase 69 U/L (45-117) 12/30/17 07:30 Total Protein 6.8 g/dl (6.4-8.2) 12/30/17 07:30 Albumin 3.5 g/dl (3.4-5.0) 12/30/17 07:30 Urine Color Yellow 12/30/17 08:00 Urine Appearance Clear 12/30/17 08:00 Urine pH 6.0 (5.0-8.0) 12/30/17 08:00 Ur Specific [place] 1.019 (1.001-1.035) 12/30/17 08:00 Urine Protein Negative (NEGATIVE) 12/30/17 08:00 Urine Glucose (UA) Negative (NEGATIVE) 12/30/17 08:00 Urine Ketones Trace (NEGATIVE) H 12/30/17 08:00 Urine Blood Negative (NEGATIVE) 12/30/17 08:00 Urine Nitrite Negative (NEGATIVE) 12/30/17 08:00 Urine Bilirubin Negative (<2.0 mg/dL) 12/30/17 08:00 Urine Urobilinogen Negative mg/dL (0.2-1.0) 12/30/17 08:00 Ur Leukocyte Esterase Negative (NEGATIVE) 12/30/17 08:00 RPR Titer Nonreactive (NONREACTIVE) 12/30/17 07:30 - Medication Discharge Medications: Ambulatory Orders Abacavir Sulfate/Lamivudine [Epzicom -] 1 tab PO DAILY 05/19/12 Atazanavir [Reyataz -] 400 mg PO DAILY 12/01/16 Methadone [Dolophine -] 23 mg PO DAILY 12/29/17 - Diagnosis (1) Alcohol dependence with uncomplicated withdrawal Current Visit: Yes Status: Acute (2) Nicotine dependence Current Visit: Yes Status: Acute Qualifiers: Nicotine product type: cigarettes Substance use status: uncomplicated Qualified Code(s): F17.210 - Nicotine dependence, cigarettes, uncomplicated (3) Opioid dependence on agonist therapy Current Visit: Yes Status: Acute (4) HIV (human immunodeficiency virus infection) Current Visit: Yes Status: Chronic (5) History of positive PPD Current Visit: Yes Status: Chronic (6) Substance induced mood disorder Current Visit: Yes Status: Suspected (7) Cannabis dependence, uncomplicated Current Visit: No Status: Acute - AMA Did Patient Leave Against Medical Advice: Yes
[2017-12-31] MEDS ORDERED: chlordiazePOXIDE 5 MG CAPSULE PO SCH (23:00)
[2018-01-01] MEDS ORDERED: PATIENT'S OWN MEDICATION (NON-FORMULARY) (Abacavir Sulfate/Lamivudine [Epzicom -] 1 TAB) PO SCH (08:00)
[2018-01-01] MEDS ORDERED: chlordiazePOXIDE HCL 10 MG CAPSULE PO SCH (23:00)
== END 2017-12-31 20:00 | disposition left against medical advice (07) | DRG 770 ==
LOC: YASAS 14:58 → Y6N 20:26
PROVIDERS: ADMIT Surgery; ATTEND Surgery
PROC: HZ2ZZZZ Detoxification Services for Substance Abuse Treatment (ICD-10-PCS; principal; 2017-12-29)
DX: F10.230 Alcohol dependence with withdrawal, uncomplicated (principal); F11.20 Opioid dependence, uncomplicated; F19.24 Other psychoactive substance dependence with psychoactive substance-induced mood disorder; F41.9 Anxiety disorder, unspecified; Z21 Asymptomatic human immunodeficiency virus [HIV] infection status; B18.2 Chronic viral hepatitis C; R76.11 Nonspecific reaction to tuberculin skin test without active tuberculosis
CPT/HCPCS: 36415; 71046-TC-FY; 80053; 81003; 85027; 86593; 93005; 93010

== ENCOUNTER 2018-08-28 08:46 | Inpatient (IN) | payer OTHER ==
[2018-08-28 09:24] VITALS: BMI 28.0
--- NOTE | 2018-08-28 11:00 | HP ---
CIWA Score Nausea/Vomitin Muscle Tremors: 4-Moderate,w/Arms Extend Anxiety: 4-Mod. Anxious/Guarded Agitation: 0-Normal Activity Paroxysmal Sweats: 1-Minimal Palms Moist Orientation: 1-Uncertain about Date Tacttile Disturbances: 0-None Auditory Disturbances: 1-Very Mild Visual Disturbances: 1-Very Mild Sensitivity Headache: 3-Moderate CIWA-Ar Total Score: 17 - Admission Criteria OASAS Guidelines: Admission for Medically Managed Detox: Requires at least one of the followin. CIWA greater than 12 2. Seizures within the past 24 hours 3. Delirium tremens within the past 24 hours 4. Hallucinations within the past 24 hours 5. Acute intervention needed for co occurring medical disorder 6. Acute intervention needed for co occurring psychiatric disorder 7. Severe withdrawal that cannot be handled at a lower level of care (continued vomiting, continued diarrhea, abnormal vital signs) requiring intravenous medication and/or fluids 8. Patient presents the following: CIWA greater than 12 Admission Criteria Met: Admission criteria met Admission ROS [facility] - HPI Chief Complaint: I feel the alcohol is poisoning me, it's making me sick Allergies/Adverse Reactions: Allergies Allergy/AdvReac Type Severity Reaction Status Date / Time No Known Allergies Allergy Verified 02/09/18 14:02 History of Present Illness: 57 yo woman here for detox from alcohol - she was last here 02/09/18 and states she did well for a few months - relapsed in May. No seizures but does have black outs. Urine tox + bzo as she was in [facility] ED last night where they gave her librium - she also takes klonopin sometimes to 'calm down'. Patient is also HIV+ , non compliant with her meds due to drinking. In Methadone Clinic at [facility] - dosed today and brought in two bottles (for tomorrow and Thursday ), . HR initially 145 - patient states she felt agitated in waiting room, after resting it was 122, no chest pain. Exam Limitations: Clinical Condition - Ebola screening Have you traveled outside of the country in the last 21 days: No (N) Have you had contact with anyone from an Ebola affected area: No Have you been sick,other than usual withdrawal symptoms: No Do you have a fever: No - Review of Systems Constitutional: Loss of Appetite, Malaise, Changes in sleep, Weakness EENT: reports: Blurred Vision Respiratory: reports: No Symptoms reported Cardiac: reports: Palpitations, Chest Tightness GI: reports: Poor Appetite, Indigestion, Abdominal cramping : reports: Frequency Integumentary: reports: Dryness Neuro: reports: Headache, Tremors Endocrine: reports: No Symptoms Reported Hematology: reports: No Symptoms Reported Psychiatric: reports: Judgement Intact, Mood/Affect Appropiate, Anxious Other Systems: Reviewed and Negative Patient History - Patient Medical History Hx Anemia: No Hx Asthma: No Hx Chronic Obstructive Pulmonary Disease (COPD): No Hx Cancer: No Hx Cardiac Disorders: Yes (tachycardia) Hx Congestive Heart Failure: No Hx Hypertension: No Hx Hypercholesterolemia: No Hx Pacemaker: No HX Cerebrovascular Accident: No Hx Seizures: No Hx Dementia: No Hx Diabetes: No Hx Gastrointestinal Disorders: No Hx Liver Disease: Yes (liver fibrosis) Hx Genitourinary Disorders: No Hx Sexually Transmitted Disorders: No Hx Renal Disease (ESRD): No Hx Thyroid Disease: No Hx Human Immunodeficiency Virus (HIV): Yes (SINCE 2008; ON EPZICOM AND REYATAZ BUT NOT COMPLIANT DUE TO DRINKING.) Hx Hepatitis C: Yes (S/P HARVONI TXMENT) Hx Depression: No Hx Suicide Attempt: No Hx Bipolar Disorder: No Hx Schizophrenia: No - Patient Surgical History Past Surgical History: Yes Hx Neurologic Surgery: No Hx Cataract Extraction: No Hx Cardiac Surgery: No Hx Lung Surgery: No Hx Breast Surgery: No Hx Breast Biopsy: No Hx Abdominal Surgery: Yes (ABSCESS exploratory sx in 2000) Hx Appendectomy: Yes (7 YEARS OLD) Hx Cholecystectomy: No Hx Genitourinary Surgery: No Hx Section: No Hx Orthopedic Surgery: No Hx Hysterectomy: No Other Surgical History: lower back sx in 2000 SEQUALA OF EXPLORATORY Anesthesia Reaction: No - PPD History Previous Implant?: Yes (BCG vax) Documented Results: Positive w/o proof Implanted On Prior [facility] Admission?: No Date: 12/30/17 (cxr) PPD to be Administered?: No - Reproductive History Patient is a Female of Child Bearing Age (11 -55 yrs old): No - Smoking Cessation Smoking history: Current every day smoker Have you smoked in the past 12 months: Yes Aproximately how many cigarettes per day: 20 Cigars Per Day: 0 Hx Chewing Tobacco Use: No Initiated information on smoking cessation: Yes 'Breaking Loose' booklet given: 08/28/18 (give on floor) - Substance & Tx. History Hx Alcohol Use: Yes Hx Substance Use: No Substance Use Type: Alcohol Hx Substance Use Treatment: Yes (detox) - Substances Abused alcohol Route: Oral Frequency: Daily Amount used: four 40oz beer Age of first use: 18 Date of Last Use: 08/28/18 klonopin Route: Oral Frequency: 1-2 times per week Amount used: 0.25 mg Age of first use: 57 Date of Last Use: 08/26/18 Family Disease History - Family Disease History Family Disease History: Heart Disease: Mother (, aneurysm), CA: Father ( , pancreatic cancer), Other: Brother (two - living, healthy) Admission Physical Exam [facility] - Vital Signs Vital Signs: Vital Signs - 24 hr 08/28/18 09:21 Temperature 98.1 F Pulse Rate 145 H Respiratory 20 Rate Blood Pressure 115/79 - Physical General Appearance: Yes: Nourished, Appropriately Dressed, Moderate Distress, Tremorous, Anxious HEENTM: Yes: EOMI, Hearing grossly Normal, Normocephalic, Normal Voice, ANGEL, Pharynx Normal, Other (right cheek with bruising/echymosis (banged it several days ago at home)) Respiratory: Yes: Normal Breath Sounds, No Respiratory Distress Neck: Yes: No masses,lesions,Nodules, Supple Breast: Yes: Breast Exam Deferred Cardiology: Yes: Tachycardia Abdominal: Yes: Soft Genitourinary: Yes: Frequency Back: Yes: Normal Inspection Musculoskeletal: Yes: full range of Motion, Gait Steady Extremities: Yes: Normal Inspection, Normal Range of Motion, Non-Tender Neurological: Yes: Fully Oriented, Alert, Normal Mood/Affect, Normal Response Integumentary: Yes: Normal Color, Dry, Warm Lymphatic: Yes: Within Normal Limits - Diagnostic (1) Alcohol dependence with uncomplicated withdrawal Current Visit: Yes Status: Chronic (2) Nicotine dependence Current Visit: No Status: Acute Qualifiers: Nicotine product type: cigarettes Substance use status: uncomplicated Qualified Code(s): F17.210 - Nicotine dependence, cigarettes, uncomplicated (3) HIV (human immunodeficiency virus infection) Current Visit: Yes Status: Chronic Qualifiers: HIV symptom status: asymptomatic Qualified Code(s): Z21 - Asymptomatic human immunodeficiency virus [HIV] infection status (4) History of positive PPD Current Visit: Yes Status: Chronic (5) Methadone maintenance therapy patient Current Visit: Yes Status: Chronic Comment: 23 MG - [facility] 1E [phone] (6) Tachycardia Current Visit: Yes Status: Chronic Cleared for Admission [facility] - Detox or Rehab [facility] Level of Care: Medically Managed Detox Regimen/Protocol: Librium [facility] Breath Alcohol Content Breath Alcohol Content: 0.146 Urine Pregancy Test - Result Urine Test Results: Negative- NO Line Present Urine Drug Screen - Results Drug Screen Negative: No Urine Drug Screen Results: BZO-Benzodiazepines
[2018-08-28] MEDS ORDERED: MAGNESIUM HYDROX 2400MG/30ML ORAL SUSPENSION 30 ML CUP PO PRN (11:25)
[2018-08-28] MEDS ORDERED: MAG HYDROX/AL HYDROX/SIMETH 30 ML UNIT-DOSE CUP PO PRN (11:25)
[2018-08-28] MEDS ORDERED: P-EPHED 60MG/TRIPROLIDI 2.5MG TABLET PO PRN (11:25)
[2018-08-28] MEDS ORDERED: IBUPROFEN 400 MG TABLET (FP) PO PRN (11:25)
[2018-08-28] MEDS ORDERED: guaiFENesin/D-METHORPHAN HB 10 ML UNIT-DOSE CUPS PO PRN (11:25)
[2018-08-28] MEDS ORDERED: LOPERAMIDE HCL 2 MG CAPSULE PO PRN (11:25)
[2018-08-28] MEDS ORDERED: MAGNESIUM CITRATE 300 ML BOTTLE PO PRN (11:25)
[2018-08-28] MEDS ORDERED: ACETAMINOPHEN 325 MG TABLET (FP) PO PRN (11:25)
[2018-08-28] MEDS ORDERED: MENTHOL/PHENOL 1 EACH UD MM PRN (11:25)
[2018-08-28] MEDS: chlordiazePOXIDE HCL 25 MG CAPSULE PO PRN (15:03)
[2018-08-28] MEDS: chlordiazePOXIDE HCL 25 MG CAPSULE PO SCH ×2 (17:21→22:49)
[2018-08-28] MEDS: THIAMINE HCL 100 MG TABLET (FP) PO SCH (22:49)
[2018-08-29] MEDS: chlordiazePOXIDE HCL 25 MG CAPSULE PO SCH ×4 (05:48→22:54)
[2018-08-29] MEDS: METHADONE HCL 10 MG TABLET PO SCH (05:48)
--- NOTE | 2018-08-29 08:32 | EKG ---
Test Reason : Blood Pressure : / mmHG Vent. Rate : 112 BPM Atrial Rate : 112 BPM P-R Int : 122 ms QRS Dur : 076 ms QT Int : 330 ms P-R-T Axes : 065 080 055 degrees QTc Int : 450 ms SINUS TACHYCARDIA ABNORMAL ECG WHEN COMPARED WITH ECG OF 10-FEB-2018 11:39, VENT. RATE HAS INCREASED BY [address] NOW DEPRESSED IN INFERIOR LEADS Confirmed by LORENE BAILEY, BRIAN ([id number]) on 08/29/2018 8:31:37 AM Referred By: Confirmed By:BRIAN PAULSON MD
[2018-08-29] MEDS ORDERED: PATIENT'S OWN MEDICATION (NON-FORMULARY) (Abacavir Sulfate/Lamivudine [Epzicom -] 1 TAB) PO SCH (10:00)
[2018-08-29 10:45] LABS: HEMATOCRIT 40.2 % (32.4-45.2); HEMOGLOBIN 13.1 GM/dL (10.7-15.3); MCH 34.2 pg (25.7-33.7); MCHC 32.5 g/dl (32.0-36.0); MEAN CELL VOLUME 105.2 fl (80-96); MEAN PLT VOLUME 10.5 fl (7.5-11.1); PLATELET COUNT 92 K/MM3 (134-434); RBC 3.82 M/mm3 (3.60-5.2); RDW 13.7 % (11.6-15.6); WHITE BLOOD COUNT 5.2 K/mm3 (4.0-10.0)
[2018-08-29 11:07] LABS: ALBUMIN 2.7 g/dl (3.4-5.0); ALK PHOS 84 U/L (45-117); ANION GAP 6 MMOL/L (8-16); BILIRUBIN,TOTAL 1.4 mg/dL (0.2-1); BLOOD UREA NITROGEN 12 mg/dL (7-18); CALCIUM 8.1 mg/dL (8.5-10.1); CHLORIDE 103 mmol/L (98-107); CO2 29 mmol/L (21-32); CREATININE 0.6 mg/dL (0.55-1.3); GLUCOSE,RANDOM 81 mg/dL (74-106); POTASSIUM 3.7 mmol/L (3.5-5.1); SGOT/AST 125 U/L (15-37); SGPT/ALT 98 U/L (13-61); SODIUM 138 mmol/L (136-145); TOT PROT 6.4 g/dl (6.4-8.2)
[2018-08-29] MEDS: PRENATAL VITAMINS W/ FOLIC ACID TABLET (FP) PO SCH (11:08)
[2018-08-29] MEDS: ATAZANAVIR SO4 200 MG CAPSULE PO SCH (11:09)
[2018-08-29] MEDS: lamiVUDine 150 MG TABLET PO SCH (11:09)
[2018-08-29] MEDS: ABACAVIR SULFATE 300 MG TABLET PO SCH (11:09)
--- NOTE | 2018-08-29 15:38 | PN ---
S CIWA - CIWA Score Nausea/Vomitin-Mild Nausea/No Vomiting Muscle Tremors: 3 Anxiety: 2 Agitation: 3 Paroxysmal Sweats: 1-Minimal Palms Moist Orientation: 1-Uncertain about Date Tacttile Disturbances: 0-None Auditory Disturbances: 0-None Visual Disturbances: 0-None Headache: 2-Mild CIWA-Ar Total Score: 13 BHS Progress Note (SOAP) Subjective: headaches tremor sweating Objective: 08/29/18 15:36 Vital Signs Temperature 98.2 F 08/29/18 14:56 Pulse Rate 117 H 08/29/18 14:56 Respiratory Rate 18 08/29/18 14:56 Blood Pressure 103/57 L 08/29/18 14:56 O2 Sat by Pulse Oximetry (%) Laboratory Last Values WBC 5.2 K/mm3 (4.0-10.0) 08/29/18 07:50 RBC 3.82 M/mm3 (3.60-5.2) 08/29/18 07:50 Hgb 13.1 GM/dL (10.7-15.3) 08/29/18 07:50 Hct 40.2 % (32.4-45.2) 08/29/18 07:50 MCV 105.2 fl (80-96) H 08/29/18 07:50 MCH 34.2 pg (25.7-33.7) H 08/29/18 07:50 MCHC 32.5 g/dl (32.0-36.0) 08/29/18 07:50 RDW 13.7 % (11.6-15.6) 08/29/18 07:50 Plt Count 92 K/MM3 (134-434) L D 08/29/18 07:50 MPV 10.5 fl (7.5-11.1) 08/29/18 07:50 Platelet Comment Rare giant plts 08/29/18 07:50 Sodium 138 mmol/L (136-145) 08/29/18 07:50 Potassium 3.7 mmol/L (3.5-5.1) 08/29/18 07:50 Chloride 103 mmol/L (98-107) 08/29/18 07:50 Carbon Dioxide 29 mmol/L (21-32) 08/29/18 07:50 Anion Gap 6 MMOL/L (8-16) L 08/29/18 07:50 BUN 12 mg/dL (7-18) 08/29/18 07:50 Creatinine 0.6 mg/dL (0.55-1.3) 08/29/18 07:50 Creat Clearance w eGFR > 60 (>60) 08/29/18 07:50 Random Glucose 81 mg/dL (74-106) 08/29/18 07:50 Calcium 8.1 mg/dL (8.5-10.1) L 08/29/18 07:50 Total Bilirubin 1.4 mg/dL (0.2-1) H 08/29/18 07:50 AST 125 U/L (15-37) H 08/29/18 07:50 ALT 98 U/L (13-61) H 08/29/18 07:50 Alkaline Phosphatase 84 U/L (45-117) 08/29/18 07:50 Total Protein 6.4 g/dl (6.4-8.2) 08/29/18 07:50 Albumin 2.7 g/dl (3.4-5.0) L 08/29/18 07:50 RPR Titer Nonreactive (NONREACTIVE) 08/29/18 07:50 lab noted low Ca+ high AST lot plt Assessment: 08/29/18 15:38 withdrawal sx hypocalcemia liver ezyme elevation thrombocytopenia 08/29/18 15:38 Plan: continue detox oscal supplement discontinue motrin repeat ast plt
[2018-08-29] MEDS: THIAMINE HCL 100 MG TABLET (FP) PO SCH (22:54)
[2018-08-29] MEDS: CALCIUM 250MG/VIT-D 125 UNITS 1 COMBO TABLET PO SCH (22:54)
[2018-08-30] MEDS: chlordiazePOXIDE HCL 25 MG CAPSULE PO PRN (01:14)
[2018-08-30] MEDS: chlordiazePOXIDE HCL 25 MG CAPSULE PO SCH ×2 (05:36→10:26)
[2018-08-30] MEDS: METHADONE HCL 10 MG TABLET PO SCH (05:36)
[2018-08-30] MEDS: CALCIUM 250MG/VIT-D 125 UNITS 1 COMBO TABLET PO SCH ×2 (10:26→22:31)
[2018-08-30] MEDS: PRENATAL VITAMINS W/ FOLIC ACID TABLET (FP) PO SCH (10:26)
[2018-08-30] MEDS: ABACAVIR SULFATE 300 MG TABLET PO SCH (10:26)
[2018-08-30] MEDS: lamiVUDine 150 MG TABLET PO SCH (10:27)
[2018-08-30] MEDS: ATAZANAVIR SO4 200 MG CAPSULE PO SCH (10:27)
[2018-08-30 10:40] LABS: INR 0.98 (0.83-1.09); PROTHROMBIN TIME (PATIENT) 11.6 SEC (9.7-13.0)
--- NOTE | 2018-08-30 10:59 | PN ---
S CIWA - CIWA Score Nausea/Vomitin-No Nausea/No Vomiting Muscle Tremors: 3 Anxiety: 3 Agitation: 3 Paroxysmal Sweats: 3 Orientation: 0-Oriented Tacttile Disturbances: 0-None Auditory Disturbances: 0-None Visual Disturbances: 0-None Headache: 0-None Present CIWA-Ar Total Score: 12 BHS Progress Note (SOAP) Subjective: agitation sweats interrupted sleep body aches Objective: 08/30/18 10:59 Vital Signs Temperature 98.5 F 08/30/18 09:27 Pulse Rate 106 H 08/30/18 09:27 Respiratory Rate 16 08/30/18 09:27 Blood Pressure 98/56 L 08/30/18 09:27 O2 Sat by Pulse Oximetry (%) Laboratory Tests 08/29/18 08/29/18 08/29/18 07:50 07:50 07:50 WBC 5.2 RBC 3.82 Hgb 13.1 Hct 40.2 MCV 105.2 H MCH 34.2 H MCHC 32.5 RDW 13.7 Plt Count 92 L D MPV 10.5 Platelet Comment Rare giant plts PT with INR INR Sodium 138 Potassium 3.7 Chloride 103 Carbon Dioxide 29 Anion Gap 6 L BUN 12 Creatinine 0.6 Creat Clearance w eGFR > 60 Random Glucose 81 Calcium 8.1 L Total Bilirubin 1.4 H AST 125 H ALT 98 H Alkaline Phosphatase 84 Total Protein 6.4 Albumin 2.7 L RPR Titer Nonreactive 08/30/18 08/30/18 08:15 08:15 WBC RBC Hgb Hct MCV MCH MCHC RDW Plt Count MPV Platelet Comment PT with INR 11.60 INR 0.98 Sodium Potassium Chloride Carbon Dioxide Anion Gap BUN Creatinine Creat Clearance w eGFR Random Glucose Calcium Total Bilirubin AST 135 H ALT Alkaline Phosphatase Total Protein Albumin RPR Titer aaox3 ambulating no acute distress Assessment: 08/30/18 10:59 withdrawal sx black/blue to under right eye noted. pt states she fell and hit her face while intoxicated at home before coming to our detox. Plan: continue detox increase fluids
[2018-08-30] MEDS: chlordiazePOXIDE 5 MG CAPSULE PO SCH ×2 (17:48→22:31)
[2018-08-30] MEDS: THIAMINE HCL 100 MG TABLET (FP) PO SCH (22:31)
[2018-08-30] MEDS: MELATONIN 5 MG TABLETS PO PRN (22:31)
[2018-08-31] MEDS: chlordiazePOXIDE 5 MG CAPSULE PO SCH ×2 (05:36→10:46)
[2018-08-31] MEDS: METHADONE HCL 10 MG TABLET PO SCH (05:36)
[2018-08-31] MEDS: PRENATAL VITAMINS W/ FOLIC ACID TABLET (FP) PO SCH (10:46)
[2018-08-31] MEDS: CALCIUM 250MG/VIT-D 125 UNITS 1 COMBO TABLET PO SCH ×2 (10:46→22:11)
[2018-08-31] MEDS: ABACAVIR SULFATE 300 MG TABLET PO SCH (10:46)
[2018-08-31] MEDS: ATAZANAVIR SO4 200 MG CAPSULE PO SCH (10:47)
--- NOTE | 2018-08-31 12:54 | PN ---
BHS Progress Note (SOAP) Subjective: sweats feeling better Objective: 08/31/18 12:53 Vital Signs Temperature 98.1 F 08/31/18 09:27 Pulse Rate 86 08/31/18 09:27 Respiratory Rate 16 08/31/18 09:27 Blood Pressure 102/65 08/31/18 09:27 O2 Sat by Pulse Oximetry (%) aaox3 ambulating no acute distress Assessment: 08/31/18 12:53 withdrawal sx Plan: increase fluids continue detox d/c in am
[2018-08-31] MEDS: chlordiazePOXIDE HCL 10 MG CAPSULE PO SCH ×2 (17:38→22:11)
[2018-08-31] MEDS: THIAMINE HCL 100 MG TABLET (FP) PO SCH (22:11)
[2018-08-31] MEDS: MELATONIN 5 MG TABLETS PO PRN (22:11)
[2018-09-01] MEDS: METHADONE HCL 10 MG TABLET PO SCH (06:06)
[2018-09-01] MEDS: chlordiazePOXIDE HCL 10 MG CAPSULE PO SCH (06:06)
[2018-09-01 07:36] VITALS: BP 113/74; PULSE 80; TEMP 98.1
--- NOTE | 2018-09-01 09:21 | DS ---
[facility] Detox Discharge Summary Admission Date: 08/28/18 Discharge Date: 09/01/18 - History Present History: Alcohol Dependence, Opioid Dependence, MMTP - Physical Exam Results Vital Signs: Vital Signs Temperature 98.1 F 09/01/18 07:36 Pulse Rate 80 09/01/18 07:36 Respiratory Rate 16 09/01/18 07:36 Blood Pressure 113/74 09/01/18 07:36 O2 Sat by Pulse Oximetry (%) - Treatment Hospital Course: Detox Protocol Followed, Detoxed Safely, Responded well, Discharged Condition Good, Rehab Referral Accepted - Medication Discharge Medications: Ambulatory Orders Abacavir Sulfate/Lamivudine [Epzicom -] 1 tab PO DAILY 05/19/12 Atazanavir [Reyataz -] 400 mg PO DAILY 12/01/16 Methadone [Dolophine -] 23 mg PO DAILY 12/29/17 - Diagnosis (1) Alcohol dependence with uncomplicated withdrawal Current Visit: Yes Status: Chronic (2) HIV (human immunodeficiency virus infection) Current Visit: Yes Status: Chronic Qualifiers: HIV symptom status: asymptomatic Qualified Code(s): Z21 - Asymptomatic human immunodeficiency virus [HIV] infection status (3) History of positive PPD Current Visit: Yes Status: Chronic (4) Methadone maintenance therapy patient Current Visit: Yes Status: Chronic (5) Tachycardia Current Visit: Yes Status: Chronic (6) Cannabis dependence, uncomplicated Current Visit: Yes Status: Chronic (7) Nicotine dependence Current Visit: Yes Status: Chronic Qualifiers: Nicotine product type: cigarettes Substance use status: uncomplicated Qualified Code(s): F17.210 - Nicotine dependence, cigarettes, uncomplicated (8) Opioid dependence with withdrawal Current Visit: Yes Status: Chronic (9) Uncomplicated sedative, hypnotic or anxiolytic withdrawal Current Visit: Yes Status: Acute (10) Anxiety Current Visit: No Status: Suspected (11) Substance induced mood disorder Current Visit: No Status: Suspected (12) bipolar disorder Current Visit: No Status: Suspected - AMA Did Patient Leave Against Medical Advice: No (referred to outpatient rehab)
== END 2018-09-01 08:55 | disposition home or self-care (01) | DRG 773 ==
LOC: YASAS 08:46 → Y6N 13:16
PROC: HZ2ZZZZ Detoxification Services for Substance Abuse Treatment (ICD-10-PCS; principal; 2018-08-28)
DX: F10.230 Alcohol dependence with withdrawal, uncomplicated (principal); F11.20 Opioid dependence, uncomplicated; F13.230 Sedative, hypnotic or anxiolytic dependence with withdrawal, uncomplicated; F12.20 Cannabis dependence, uncomplicated; F17.210 Nicotine dependence, cigarettes, uncomplicated; F41.9 Anxiety disorder, unspecified; F19.24 Other psychoactive substance dependence with psychoactive substance-induced mood disorder; F31.9 Bipolar disorder, unspecified; Z21 Asymptomatic human immunodeficiency virus [HIV] infection status; R76.11 Nonspecific reaction to tuberculin skin test without active tuberculosis; R00.0 Tachycardia, unspecified; R94.5 Abnormal results of liver function studies; E83.51 Hypocalcemia; D69.6 Thrombocytopenia, unspecified; S00.11XD Contusion of right eyelid and periocular area, subsequent encounter; Z91.14 Patient's other noncompliance with medication regimen
CPT/HCPCS: 36415; 80053; 84450; 85027; 85610; 86593; 93005; 93010

== ENCOUNTER 2018-11-23 12:09 | Inpatient (IN) | payer OTHER ==
--- NOTE | 2018-11-23 14:47 | HP ---
CIWA Score Nausea/Vomitin-Int. Nausea w/Dry Heave Muscle Tremors: 6 Anxiety: 3 Agitation: 0-Normal Activity Paroxysmal Sweats: 3 Orientation: 1-Uncertain about Date Tacttile Disturbances: 1-Very Mild Itch/Numbness Auditory Disturbances: 0-None Visual Disturbances: 0-None Headache: 0-None Present CIWA-Ar Total Score: 18 - Admission Criteria OASAS Guidelines: Admission for Medically Managed Detox: Requires at least one of the followin. CIWA greater than 12 2. Seizures within the past 24 hours 3. Delirium tremens within the past 24 hours 4. Hallucinations within the past 24 hours 5. Acute intervention needed for co occurring medical disorder 6. Acute intervention needed for co occurring psychiatric disorder 7. Severe withdrawal that cannot be handled at a lower level of care (continued vomiting, continued diarrhea, abnormal vital signs) requiring intravenous medication and/or fluids 8. Patient presents the following: CIWA greater than 12, Acute intervention needed for co-occurring med or psych disorder Admission Criteria Met: Admission criteria met Admission ROS S - HPI Chief Complaint: " I feel shaky" Allergies/Adverse Reactions: Allergies Allergy/AdvReac Type Severity Reaction Status Date / Time No Known Allergies Allergy Verified 11/23/18 14:05 History of Present Illness: 58 yo female with hx of nicotine, alcohol dependence and occasional klonopin use is here seeking alcohol detox d/t withdrawal symptoms, patient is known to the program , last detox [facility] 08/28/18 -09/01/18. Reports suffering fall x 3 days. Reports hx of alcohol blackouts with last episode four days ago. Urine tox + bzo PMHX: HIV+ , non compliant with her meds due to drinking. In Methadone Clinic at [facility] [phone] on methadone 23 mg maintenance, last medicated 8 days ago, dose verified. No SI / HI. Exam Limitations: No Limitations - Ebola screening Have you traveled outside of the country in the last 21 days: No Have you had contact with anyone from an Ebola affected area: No - Review of Systems Constitutional: Chills, Loss of Appetite, Changes in sleep EENT: reports: No Symptoms Reported (shakes) Respiratory: reports: No Symptoms reported Cardiac: reports: No Symptoms Reported GI: reports: Nausea, Poor Appetite, Poor Fluid Intake, Vomiting : reports: No Symptoms Reported Musculoskeletal: reports: No Symptoms Reported Integumentary: reports: Erythema (left knee, chin post fall) Neuro: reports: Tremors Endocrine: reports: No Symptoms Reported Hematology: reports: No Symptoms Reported Psychiatric: reports: Orientated x3, Anxious Other Systems: Reviewed and Negative Patient History - Patient Medical History Hx Anemia: No Hx Asthma: No Hx Chronic Obstructive Pulmonary Disease (COPD): No Hx Cancer: No Hx Cardiac Disorders: Yes (tachycardia) Hx Congestive Heart Failure: No Hx Hypertension: No Hx Hypercholesterolemia: No Hx Pacemaker: No HX Cerebrovascular Accident: No Hx Seizures: No Hx Dementia: No Hx Diabetes: No Hx Gastrointestinal Disorders: No Hx Liver Disease: Yes (liver fibrosis) Hx Genitourinary Disorders: No Hx Sexually Transmitted Disorders: No Hx Renal Disease (ESRD): No Hx Thyroid Disease: No Hx Human Immunodeficiency Virus (HIV): Yes (SINCE 2008; ON EPZICOM AND REYATAZ BUT NOT COMPLIANT DUE TO DRINKING.) Hx Hepatitis C: Yes (S/P HARVONI TXMENT) Hx Depression: No Hx Suicide Attempt: No Hx Bipolar Disorder: No Hx Schizophrenia: No - Patient Surgical History Past Surgical History: Yes Hx Neurologic Surgery: No Hx Cataract Extraction: No Hx Cardiac Surgery: No Hx Lung Surgery: No Hx Breast Surgery: No Hx Breast Biopsy: No Hx Abdominal Surgery: Yes (ABSCESS exploratory sx in 2000) Hx Appendectomy: Yes (7 YEARS OLD) Hx Cholecystectomy: No Hx Genitourinary Surgery: No Hx Section: No Hx Orthopedic Surgery: No Hx Hysterectomy: No Other Surgical History: lower back sx in 2000 SEQUALA OF EXPLORATORY Anesthesia Reaction: No - PPD History Previous Implant?: No Documented Results: Negative w/proof Date: 12/30/17 PPD to be Administered?: No - Reproductive History Patient is a Female of Child Bearing Age (11 -55 yrs old): No - Smoking Cessation Smoking history: Current every day smoker Have you smoked in the past 12 months: Yes Aproximately how many cigarettes per day: 20 Cigars Per Day: 0 Hx Chewing Tobacco Use: No Initiated information on smoking cessation: Yes 'Breaking Loose' booklet given: 11/23/18 - Substances abused Alcohol Other (specify): 4-5 beers Substance route: Oral Frequency: Daily Amount used: 4-5 beers Age of first use: 18 Date of last use: 11/23/18 Family Disease History - Family Disease History Family Disease History: Heart Disease: Mother (, aneurysm), CA: Father ( , pancreatic cancer), Other: Brother (two - living, healthy) Admission Physical Exam [facility] - Vital Signs Vital Signs: Vital Signs - 24 hr 11/23/18 14:05 Temperature 98.4 F Pulse Rate 108 H Respiratory 18 Rate Blood Pressure 128/86 - Physical General Appearance: Yes: Disheveled, Moderate Distress, Tremorous, Anxious HEENTM: Yes: EOMI, Hearing grossly Normal, Normal ENT Inspection, Normocephalic , Normal Voice, ANGEL, Pharynx Normal, Tm's normal, Other (edentulous) Respiratory: Yes: Chest Non-Tender, Lungs Clear, Normal Breath Sounds, No Respiratory Distress, No Accessory Muscle Use Neck: Yes: Within Normal Limits Breast: Yes: Within Normal Limits, Axillae without masses, Breasts Symetrical, No Discharge, No masses Cardiology: Yes: Regular Rhythm, Tachycardia Abdominal: Yes: Normal Bowel Sounds, Non Tender, Flat, Soft Genitourinary: Yes: Within Normal Limits Back: Yes: Normal Inspection Musculoskeletal: Yes: full range of Motion, Gait Steady, Pelvis Stable Extremities: Yes: Normal Capillary Refill, Normal Inspection, Normal Range of Motion, Non-Tender Neurological: Yes: 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, Fully Oriented, Alert, Motor Strength 5/5, Normal Mood/Affect (anxious), Normal Response, Depressed Affect Integumentary: Yes: Normal Color, Warm, Erythema (under chin, bilateral lower extremities), Diaphoresis, Other (abrasion on both knees) Lymphatic: Yes: Within Normal Limits - Diagnostic (1) Alcohol dependence with uncomplicated withdrawal Current Visit: Yes Status: Chronic (2) HIV (human immunodeficiency virus infection) Current Visit: Yes Status: Chronic Qualifiers: HIV symptom status: asymptomatic Qualified Code(s): Z21 - Asymptomatic human immunodeficiency virus [HIV] infection status (3) Methadone maintenance therapy patient Current Visit: Yes Status: Chronic Comment: 23 MG - [facility] 1E [phone] (4) Nicotine dependence Current Visit: Yes Status: Chronic Qualifiers: Nicotine product type: cigarettes Substance use status: uncomplicated Qualified Code(s): F17.210 - Nicotine dependence, cigarettes, uncomplicated (5) Tachycardia Current Visit: Yes Status: Chronic (6) Anxiety Current Visit: Yes Status: Suspected Cleared for Admission [facility] - Detox or Rehab [facility] Level of Care: Medically Managed Detox Regimen/Protocol: Librium Breathalyzer - Breathalyzer Breathalyzer: 0 POC Urine test - Test device test lot number: [id number] Expiration date: 12/15/19 - Control test control: Yes - Result Urine Test Results: Negative - NO line present Urine Drug Screen - Test Device Lot number: [id number] Expiration date: 07/16/20 - Control Is test valid?: Yes - Results Drug screen NEGATIVE: No Urine drug screen results: MTD-Methadone, BZO-Benzodiazepines Inpatient Rehab Admission - Rehab Decision to Admit Inpatient rehab admission?: No
[2018-11-23] MEDS ORDERED: IBUPROFEN 400 MG TABLET (FP) PO PRN (14:52)
[2018-11-23] MEDS ORDERED: MAGNESIUM CITRATE 300 ML BOTTLE PO PRN (14:52)
[2018-11-23] MEDS ORDERED: MELATONIN 5 MG TABLETS PO PRN (14:52)
[2018-11-23] MEDS ORDERED: MAG HYDROX/AL HYDROX/SIMETH 30 ML UNIT-DOSE CUP PO PRN (14:52)
[2018-11-23] MEDS ORDERED: BACLOFEN 10 MG TABLET (FP) PO PRN (14:52)
[2018-11-23] MEDS ORDERED: MENTHOL/PHENOL 1 EACH UD MM PRN (14:52)
[2018-11-23] MEDS ORDERED: BISMUTH SUBSALICYLATE 524 MG/30 ML UD PO PRN (14:52)
[2018-11-23] MEDS ORDERED: MAGNESIUM HYDROX 2400MG/30ML ORAL SUSPENSION 30 ML CUP PO PRN (14:52)
[2018-11-23] MEDS ORDERED: ACETAMINOPHEN 325 MG TABLET (FP) PO PRN ×2 (14:52)
[2018-11-23] MEDS ORDERED: NICOTINE POLACRILEX 2 MG GUM BUC PRN (14:52)
[2018-11-23 15:26] VITALS: BMI 27.4
[2018-11-23] MEDS ORDERED: chlordiazePOXIDE HCL 25 MG CAPSULE PO ONE ×2 (15:45→17:15)
[2018-11-23] MEDS ORDERED: METHADONE HCL 10 MG TABLET PO ONE (15:45)
[2018-11-23] MEDS ORDERED: BACITRACIN 0.9 GM PACKET TP ONE (15:45)
--- NOTE | 2018-11-23 16:56 | PN ---
[facility] Progress Note Note: Vital Signs Temperature 98.4 F 11/23/18 14:05 Pulse Rate 108 H 11/23/18 14:05 Respiratory Rate 18 11/23/18 14:05 Blood Pressure 128/86 11/23/18 14:05 O2 Sat by Pulse Oximetry (%) Patient continues with symptomatic with ETOH withdrawal sx with tachycardia, irritable, tremors and anxious after given librium 25 mg an hour ago. give stat librium 25 mg and clonidine 0.1 mg for withdrawal sx increase po fluids continue to monitor
[2018-11-23] MEDS ORDERED: cloNIDine HCL 0.1 MG TABLET PO ONE (17:15)
[2018-11-23 18:53] LABS: HEMATOCRIT 43.3 % (32.4-45.2); MCH 36.4 pg (25.7-33.7); MCHC 34.6 g/dl (32.0-36.0); MEAN CELL VOLUME 105.1 fl (80-96); PLATELET COUNT 83 K/MM3 (134-434); RBC 4.12 M/mm3 (3.60-5.2); RDW 12.6 % (11.6-15.6); WHITE BLOOD COUNT 4.8 K/mm3 (4.0-10.0)
[2018-11-23 18:54] LABS: ALBUMIN 3.7 g/dl (3.4-5.0); ALK PHOS 126 U/L (45-117); ANION GAP 10 MMOL/L (8-16); BILIRUBIN,TOTAL 2.2 mg/dL (0.2-1); BLOOD UREA NITROGEN 8 mg/dL (7-18); CALCIUM 8.7 mg/dL (8.5-10.1); CHLORIDE 102 mmol/L (98-107); CO2 26 mmol/L (21-32); CREATININE 0.8 mg/dL (0.55-1.3); GLUCOSE,RANDOM 107 mg/dL (74-106); POTASSIUM 3.7 mmol/L (3.5-5.1); SGOT/AST 254 U/L (15-37); SGPT/ALT 114 U/L (13-61); SODIUM 137 mmol/L (136-145); TOT PROT 8.3 g/dl (6.4-8.2)
[2018-11-23 19:26] LABS: EPI CELLS 16.7 /HPF (0-5/HPF); PH,URINE 6.5 (5.0-8.0); URINE APPEARANCE CLOUDY; URINE BACTERIA 1115.9 /hpf (NEGATIVE); URINE BILIRUBIN 1+ (NEGATIVE); URINE CASTS 16 /hpf (0-8); URINE COLOR ORANGE; URINE GLUCOSE (UA) NEGATIVE (NEGATIVE); URINE KETONE 1+ (NEGATIVE); URINE LEUK ESTERASE 1+ (NEGATIVE); URINE NITRITE POSITIVE (NEGATIVE); URINE PROTEIN TRACE (NEGATIVE); URINE RBC 9 /hpf (0-4); URINE WBC 3 /hpf (0-5)
[2018-11-23] MEDS: THIAMINE HCL 100 MG TABLET (FP) PO SCH (21:50)
[2018-11-23] MEDS: chlordiazePOXIDE HCL 25 MG CAPSULE PO SCH (22:04)
[2018-11-23] MEDS: chlordiazePOXIDE HCL 25 MG CAPSULE PO PRN (23:46)
[2018-11-24] MEDS: chlordiazePOXIDE HCL 25 MG CAPSULE PO PRN (02:45)
[2018-11-24] MEDS ORDERED: METHADONE HCL 10 MG TABLET PO SCH (06:00)
[2018-11-24] MEDS: chlordiazePOXIDE HCL 25 MG CAPSULE PO SCH ×2 (06:01→10:28)
[2018-11-24] MEDS: ATAZANAVIR SO4 200 MG CAPSULE PO SCH (09:39)
[2018-11-24] MEDS ORDERED: METHADONE HCL 5 MG TABLET PO ONE (09:55)
[2018-11-24] MEDS ORDERED: cloNIDine HCL 0.1 MG TABLET PO PRN (09:56)
[2018-11-24] MEDS ORDERED: hydrOXYzine PAMOATE 50 MG CAPSULE (FP) PO PRN (09:57)
[2018-11-24] MEDS ORDERED: PATIENT'S OWN MEDICATION (NON-FORMULARY) (Abacavir Sulfate/Lamivudine [Epzicom -] 1 TAB) PO SCH (10:00)
[2018-11-24] MEDS: NICOTINE 14 MG/24 HOURS TOPICAL PATCH TD SCH (10:28)
[2018-11-24] MEDS: PRENATAL VITAMINS W/ FOLIC ACID TABLET (FP) PO SCH (10:28)
[2018-11-24] MEDS: ABACAVIR SULFATE 300 MG TABLET PO SCH (10:28)
--- NOTE | 2018-11-24 11:48 | PN ---
S CIWA - CIWA Score Nausea/Vomitin Muscle Tremors: 3 Anxiety: 2 Agitation: 2 Paroxysmal Sweats: 1-Minimal Palms Moist Orientation: 0-Oriented Tacttile Disturbances: 0-None Auditory Disturbances: 0-None Visual Disturbances: 0-None Headache: 1-Very Mild CIWA-Ar Total Score: 11 S Progress Note (SOAP) Subjective: pt states she still feels very uncomfortable with the detox. Only got methadone 10mg today, usual dose at [facility] is 23 mg. O Vital Signs - 24 hr 11/23/18 11/23/18 11/23/18 14:05 17:13 21:43 Temperature 98.4 F 99.1 F 97.4 F L Pulse Rate 108 H 115 H 116 H Respiratory 18 18 18 Rate Blood Pressure 128/86 123/75 96/62 11/24/18 11/24/18 11/24/18 00:30 03:30 06:58 Temperature 97.7 F Pulse Rate 121 H Respiratory 18 18 20 Rate Blood Pressure 126/79 11/24/18 09:24 Temperature 97.9 F Pulse Rate 101 H Respiratory 16 Rate Blood Pressure 106/61 Laboratory Tests 11/23/18 11/23/18 11/23/18 15:10 15:10 15:10 WBC 4.8 RBC 4.12 Hgb 15.0 Hct 43.3 MCV 105.1 H MCH 36.4 H MCHC 34.6 RDW 12.6 Plt Count 83 L MPV 11.0 Sodium 137 Potassium 3.7 Chloride 102 Carbon Dioxide 26 Anion Gap 10 BUN 8 Creatinine 0.8 Creat Clearance w eGFR 73.67 Random Glucose 107 H Calcium 8.7 Total Bilirubin 2.2 H AST 254 H ALT 114 H Alkaline Phosphatase 126 H Total Protein 8.3 H Albumin 3.7 Urine Color Urine Appearance Urine pH Ur Specific [place] Urine Protein Urine Glucose (UA) Urine Ketones Urine Blood Urine Nitrite Urine Bilirubin Urine Urobilinogen Ur Leukocyte Esterase Urine WBC (Auto) Urine RBC (Auto) Urine Casts (Auto) U Epithel Cells (Auto) Urine Bacteria (Auto) RPR Titer Nonreactive 11/23/18 15:43 WBC RBC Hgb Hct MCV MCH MCHC RDW Plt Count MPV Sodium Potassium Chloride Carbon Dioxide Anion Gap BUN Creatinine Creat Clearance w eGFR Random Glucose Calcium Total Bilirubin AST ALT Alkaline Phosphatase Total Protein Albumin Urine Color [place] Urine Appearance Cloudy Urine pH 6.5 Ur Specific [place] 1.021 Urine Protein Trace Urine Glucose (UA) Negative Urine Ketones 1+ H Urine Blood Trace Urine Nitrite Positive H Urine Bilirubin 1+ H Urine Urobilinogen 1.0 Ur Leukocyte Esterase 1+ H Urine WBC (Auto) 3 Urine RBC (Auto) 9 Urine Casts (Auto) 16 U Epithel Cells (Auto) 16.7 Urine Bacteria (Auto) 1115.9 RPR Titer tachycardia high liver enzymes abnl UA a/p: will start methadone 25 mg as MAT confirmed dose 23 mg/day Will change from librium to ativan given the increased liver enzymes will repeat UA and Cx clonidine/vistaril/ativan prn for Sx
[2018-11-24] MEDS ORDERED: LORazepam 1 MG TABLET PO PRN (13:41)
[2018-11-24] MEDS: LORazepam 2 MG TABLET PO SCH ×2 (17:26→22:14)
[2018-11-24] MEDS: THIAMINE HCL 100 MG TABLET (FP) PO SCH (22:14)
[2018-11-24] MEDS ORDERED: chlordiazePOXIDE HCL 25 MG CAPSULE PO SCH (23:00)
[2018-11-25] MEDS ORDERED: METHADONE HCL 5 MG TABLET ONE (04:36)
[2018-11-25] MEDS ORDERED: METHADONE HCL 10 MG TABLET ONE (04:36)
[2018-11-25] MEDS: METHADONE 20 MG, METHADONE 5 MG PO SCH (05:20)
[2018-11-25] MEDS: LORazepam 2 MG TABLET PO SCH ×4 (05:20→22:19)
[2018-11-25] MEDS ORDERED: METHADONE HCL 10 MG TABLET PO SCH (06:00)
--- NOTE | 2018-11-25 09:41 | PN ---
S CIWA - CIWA Score Nausea/Vomitin Muscle Tremors: 2 Anxiety: 2 Agitation: 2 Paroxysmal Sweats: 1-Minimal Palms Moist Orientation: 0-Oriented Tacttile Disturbances: 1-Very Mild Itch/Numbness Auditory Disturbances: 1-Very Mild Visual Disturbances: 0-None Headache: 2-Mild CIWA-Ar Total Score: 13 [facility] Progress Note (SOAP) Subjective: alert,irritable,anxious,interrupted sleep,tremor Objective: 11/25/18 09:40 Vital Signs Temperature 97.5 F L 11/25/18 09:02 Pulse Rate 120 H 11/25/18 09:02 Respiratory Rate 18 11/25/18 09:02 Blood Pressure 106/72 11/25/18 09:02 O2 Sat by Pulse Oximetry (%) Laboratory Last Values WBC 4.8 K/mm3 (4.0-10.0) 11/23/18 15:10 RBC 4.12 M/mm3 (3.60-5.2) 11/23/18 15:10 Hgb 15.0 GM/dL (10.7-15.3) 11/23/18 15:10 Hct 43.3 % (32.4-45.2) 11/23/18 15:10 MCV 105.1 fl (80-96) H 11/23/18 15:10 MCH 36.4 pg (25.7-33.7) H 11/23/18 15:10 MCHC 34.6 g/dl (32.0-36.0) 11/23/18 15:10 RDW 12.6 % (11.6-15.6) 11/23/18 15:10 Plt Count 83 K/MM3 (134-434) L 11/23/18 15:10 MPV 11.0 fl (7.5-11.1) 11/23/18 15:10 Sodium 137 mmol/L (136-145) 11/23/18 15:10 Potassium 3.7 mmol/L (3.5-5.1) 11/23/18 15:10 Chloride 102 mmol/L (98-107) 11/23/18 15:10 Carbon Dioxide 26 mmol/L (21-32) 11/23/18 15:10 Anion Gap 10 MMOL/L (8-16) 11/23/18 15:10 BUN 8 mg/dL (7-18) 11/23/18 15:10 Creatinine 0.8 mg/dL (0.55-1.3) 11/23/18 15:10 Creat Clearance w eGFR 73.67 (>60) 11/23/18 15:10 Random Glucose 107 mg/dL (74-106) H 11/23/18 15:10 Calcium 8.7 mg/dL (8.5-10.1) 11/23/18 15:10 Total Bilirubin 2.2 mg/dL (0.2-1) H 11/23/18 15:10 AST 254 U/L (15-37) H 11/23/18 15:10 ALT 114 U/L (13-61) H 11/23/18 15:10 Alkaline Phosphatase 126 U/L (45-117) H 11/23/18 15:10 Total Protein 8.3 g/dl (6.4-8.2) H 11/23/18 15:10 Albumin 3.7 g/dl (3.4-5.0) 11/23/18 15:10 Urine Color Gray 11/23/18 15:43 Urine Appearance Cloudy 11/23/18 15:43 Urine pH 6.5 (5.0-8.0) 11/23/18 15:43 Ur Specific [place] 1.021 (1.010-1.035) 11/23/18 15:43 Urine Protein Trace (NEGATIVE) 11/23/18 15:43 Urine Glucose (UA) Negative (NEGATIVE) 11/23/18 15:43 Urine Ketones 1+ (NEGATIVE) H 11/23/18 15:43 Urine Blood Trace (NEGATIVE) 11/23/18 15:43 Urine Nitrite Positive (NEGATIVE) H 11/23/18 15:43 Urine Bilirubin 1+ (NEGATIVE) H 11/23/18 15:43 Urine Urobilinogen 1.0 mg/dL (0.2-1.0) 11/23/18 15:43 Ur Leukocyte Esterase 1+ (NEGATIVE) H 11/23/18 15:43 Urine WBC (Auto) 3 /hpf (0-5) 11/23/18 15:43 Urine RBC (Auto) 9 /hpf (0-4) 11/23/18 15:43 Urine Casts (Auto) 16 /hpf (0-8) 11/23/18 15:43 U Epithel Cells (Auto) 16.7 /HPF (0-5/HPF) 11/23/18 15:43 Urine Bacteria (Auto) 1115.9 /hpf (NEGATIVE) 11/23/18 15:43 RPR Titer Nonreactive (NONREACTIVE) 11/23/18 15:10 Assessment: 11/25/18 09:40 withdrawal symptom Plan: withdrawal symptom,continue detox,d/c tylenol due to elevation alt,ast,repeat pending
[2018-11-25] MEDS: PRENATAL VITAMINS W/ FOLIC ACID TABLET (FP) PO SCH (10:37)
[2018-11-25] MEDS: ATAZANAVIR SO4 200 MG CAPSULE PO SCH (10:38)
[2018-11-25] MEDS: ABACAVIR SULFATE 300 MG TABLET PO SCH (10:38)
[2018-11-25 10:41] LABS: ALBUMIN 3.1 g/dl (3.4-5.0); BILIRUBIN,DIRECT 0.7 mg/dL (0.0-0.2); BILIRUBIN,TOTAL 3.5 mg/dL (0.2-1); TOT PROT 6.9 g/dl (6.4-8.2)
[2018-11-25] MEDS: NICOTINE 14 MG/24 HOURS TOPICAL PATCH TD SCH (10:41)
[2018-11-25] MEDS: THIAMINE HCL 100 MG TABLET (FP) PO SCH (21:54)
[2018-11-25] MEDS ORDERED: chlordiazePOXIDE HCL 10 MG CAPSULE PO SCH (23:00)
[2018-11-25] MEDS ORDERED: chlordiazePOXIDE HCL 10 MG CAPSULE PO PRN (23:00)
[2018-11-26] MEDS ORDERED: METHADONE HCL 5 MG TABLET ONE (04:51)
[2018-11-26] MEDS ORDERED: METHADONE HCL 10 MG TABLET ONE (04:52)
[2018-11-26] MEDS: METHADONE 20 MG, METHADONE 5 MG PO SCH (05:16)
[2018-11-26] MEDS: LORazepam 1 MG TABLET PO SCH ×4 (05:16→23:08)
[2018-11-26] MEDS: PRENATAL VITAMINS W/ FOLIC ACID TABLET (FP) PO SCH (10:47)
[2018-11-26] MEDS: ABACAVIR SULFATE 300 MG TABLET PO SCH (10:47)
[2018-11-26] MEDS: ATAZANAVIR SO4 200 MG CAPSULE PO SCH (10:48)
[2018-11-26] MEDS: NICOTINE 14 MG/24 HOURS TOPICAL PATCH TD SCH (10:49)
--- NOTE | 2018-11-26 10:58 | PN ---
S Progress Note (SOAP) Subjective: alert,irritable,anxious,interrupted sleep Objective: 11/26/18 10:56 Laboratory Last Values WBC 4.8 K/mm3 (4.0-10.0) 11/23/18 15:10 RBC 4.12 M/mm3 (3.60-5.2) 11/23/18 15:10 Hgb 15.0 GM/dL (10.7-15.3) 11/23/18 15:10 Hct 43.3 % (32.4-45.2) 11/23/18 15:10 MCV 105.1 fl (80-96) H 11/23/18 15:10 MCH 36.4 pg (25.7-33.7) H 11/23/18 15:10 MCHC 34.6 g/dl (32.0-36.0) 11/23/18 15:10 RDW 12.6 % (11.6-15.6) 11/23/18 15:10 Plt Count 83 K/MM3 (134-434) L 11/23/18 15:10 MPV 11.0 fl (7.5-11.1) 11/23/18 15:10 Sodium 137 mmol/L (136-145) 11/23/18 15:10 Potassium 3.7 mmol/L (3.5-5.1) 11/23/18 15:10 Chloride 102 mmol/L (98-107) 11/23/18 15:10 Carbon Dioxide 26 mmol/L (21-32) 11/23/18 15:10 Anion Gap 10 MMOL/L (8-16) 11/23/18 15:10 BUN 8 mg/dL (7-18) 11/23/18 15:10 Creatinine 0.8 mg/dL (0.55-1.3) 11/23/18 15:10 Creat Clearance w eGFR 73.67 (>60) 11/23/18 15:10 Random Glucose 107 mg/dL (74-106) H 11/23/18 15:10 Calcium 8.7 mg/dL (8.5-10.1) 11/23/18 15:10 Total Bilirubin 3.5 mg/dL (0.2-1) H 11/25/18 07:00 Direct Bilirubin 0.7 mg/dL (0.0-0.2) H 11/25/18 07:00 AST 88 U/L (15-37) H 11/25/18 07:00 ALT 65 U/L (13-61) H 11/25/18 07:00 Alkaline Phosphatase 91 U/L (45-117) 11/25/18 07:00 Total Protein 6.9 g/dl (6.4-8.2) 11/25/18 07:00 Albumin 3.1 g/dl (3.4-5.0) L 11/25/18 07:00 Urine Color [place] 11/23/18 15:43 Urine Appearance Cloudy 11/23/18 15:43 Urine pH 6.5 (5.0-8.0) 11/23/18 15:43 Ur Specific [place] 1.021 (1.010-1.035) 11/23/18 15:43 Urine Protein Trace (NEGATIVE) 11/23/18 15:43 Urine Glucose (UA) Negative (NEGATIVE) 11/23/18 15:43 Urine Ketones 1+ (NEGATIVE) H 11/23/18 15:43 Urine Blood Trace (NEGATIVE) 11/23/18 15:43 Urine Nitrite Positive (NEGATIVE) H 11/23/18 15:43 Urine Bilirubin 1+ (NEGATIVE) H 11/23/18 15:43 Urine Urobilinogen 1.0 mg/dL (0.2-1.0) 11/23/18 15:43 Ur Leukocyte Esterase 1+ (NEGATIVE) H 11/23/18 15:43 Urine WBC (Auto) 3 /hpf (0-5) 11/23/18 15:43 Urine RBC (Auto) 9 /hpf (0-4) 11/23/18 15:43 Urine Casts (Auto) 16 /hpf (0-8) 11/23/18 15:43 U Epithel Cells (Auto) 16.7 /HPF (0-5/HPF) 11/23/18 15:43 Urine Bacteria (Auto) 1115.9 /hpf (NEGATIVE) 11/23/18 15:43 RPR Titer Nonreactive (NONREACTIVE) 11/23/18 15:10 Assessment: 11/26/18 10:56 withdrawal symptom Plan: continue detox,bacitracin ointment right knee bid,discharge in am
--- NOTE | 2018-11-26 13:44 | EKG ---
Test Reason : Blood Pressure : / mmHG Vent. Rate : 104 BPM Atrial Rate : 104 BPM P-R Int : 122 ms QRS Dur : 074 ms QT Int : 356 ms P-R-T Axes : 053 079 042 degrees QTc Int : 468 ms SINUS TACHYCARDIA OTHERWISE NORMAL ECG WHEN COMPARED WITH ECG OF 28-AUG-2018 14:37, NO SIGNIFICANT CHANGE WAS FOUND Confirmed by BRIAN PAULSON MD ([id number]) on 11/26/2018 1:44:18 PM Referred By: Confirmed By:BRIAN PAULSON MD
[2018-11-26 21:29] VITALS: TEMP 98.2
[2018-11-26] MEDS: THIAMINE HCL 100 MG TABLET (FP) PO SCH (22:33)
[2018-11-26] MEDS ORDERED: chlordiazePOXIDE HCL 10 MG CAPSULE PO SCH (23:00)
[2018-11-27] MEDS ORDERED: LORazepam 0.5 MG TABLET PO SCH (05:00)
[2018-11-27] MEDS ORDERED: METHADONE HCL 5 MG TABLET ONE (05:04)
[2018-11-27] MEDS ORDERED: METHADONE HCL 10 MG TABLET ONE (05:04)
[2018-11-27] MEDS: METHADONE 20 MG, METHADONE 5 MG PO SCH (05:05)
[2018-11-27 06:21] VITALS: BP 100/60; PULSE 92
[2018-11-27] MEDS ORDERED: LORazepam 0.5 MG TABLET PO PRN (13:41)
== END 2018-11-27 07:29 | disposition home or self-care (01) | DRG 773 ==
LOC: YASAS 12:09 → Y6N 15:12
PROVIDERS: ADMIT Surgery; ATTEND Surgery
PROC: HZ2ZZZZ Detoxification Services for Substance Abuse Treatment (ICD-10-PCS; principal; 2018-11-23)
DX: F10.230 Alcohol dependence with withdrawal, uncomplicated (principal); F11.20 Opioid dependence, uncomplicated; F17.210 Nicotine dependence, cigarettes, uncomplicated; F41.9 Anxiety disorder, unspecified; R94.5 Abnormal results of liver function studies; R00.0 Tachycardia, unspecified; R82.90 Unspecified abnormal findings in urine; Z21 Asymptomatic human immunodeficiency virus [HIV] infection status; K74.0 Hepatic fibrosis; Z91.14 Patient's other noncompliance with medication regimen
CPT/HCPCS: 36415; 80053; 80076; 81003; 85027; 86593; 87086; 93005; 93010; J0735

== ENCOUNTER 2019-07-01 13:11 | Inpatient (IN) | payer OTHER ==
[2019-07-01 14:47] VITALS: BMI 31.1
--- NOTE | 2019-07-01 16:15 | HP ---
"CIWA Score Nausea/Vomitin-No Nausea/No Vomiting Muscle Tremors: 4-Moderate,w/Arms Extend Anxiety: 4-Mod. Anxious/Guarded Agitation: 4-Moderately Restless Paroxysmal Sweats: 2 Orientation: 0-Oriented Tacttile Disturbances: 0-None Auditory Disturbances: 0-None Visual Disturbances: 0-None Headache: 3-Moderate CIWA-Ar Total Score: 17 - Admission Criteria OASAS Guidelines: Admission for Medically Managed Detox: Requires at least one of the followin. CIWA greater than 12 2. Seizures within the past 24 hours 3. Delirium tremens within the past 24 hours 4. Hallucinations within the past 24 hours 5. Acute intervention needed for co occurring medical disorder 6. Acute intervention needed for co occurring psychiatric disorder 7. Severe withdrawal that cannot be handled at a lower level of care (continued vomiting, continued diarrhea, abnormal vital signs) requiring intravenous medication and/or fluids 8. Admitting History and Physical - Smoking History Smoking history: Current every day smoker Have you smoked in the past 12 months: Yes Aproximately how many cigarettes per day: 20 - Alcohol/Substance Use Hx Alcohol Use: Yes Admission ROS [facility] Allergies/Adverse Reactions: Allergies Allergy/AdvReac Type Severity Reaction Status Date / Time No Known Allergies Allergy Verified 07/01/19 14:39 History of Present Illness: pt here requesting detox from etoh use , reports 3 x 40 oz bottles of malt liquor / day , intermittent heavy use since age 18 , latest use this morning , went home after hospital visit [facility] after fall down subway stairs , xr + frx talus , casted and given crutches , states left crutches at hospital because she did not know how to use the crutches. PMHX : HIV dx 2008 ( RF= ST ) , iD clinic [facility] , reports non- compliance w/ meds has bottles for Reyataz and Epzicom dated 07/07/2017, hep C s/p tx [facility] 2 years ago Psych : denies , planning to see psychiatry Search Terms: marcia liu, 1960 Search Date: 07/01/2019 04:20:56 PM This report was requested by: Kiara Mccloud | Reference #: [id number] There are no results for the search terms that you entered. Exam Limitations: Intoxication - Ebola screening Have you traveled outside of the country in the last 21 days: No (N) Have you had contact with anyone from an Ebola affected area: No Do you have a fever: No - Review of Systems Constitutional: No Symptoms Reported EENT: reports: Other (glasses dentures upper and lower) Respiratory: reports: SOB with Exertion Cardiac: reports: No Symptoms Reported GI: reports: Diarrhea (x 1 week) : reports: No Symptoms Reported Musculoskeletal: reports: See HPI, Other (right foot) Integumentary: reports: Bruising (left knee) Endocrine: reports: No Symptoms Reported Psychiatric: reports: Orientated x3, Agitated, Anxious Patient History - Patient Medical History Hx Anemia: No Hx Asthma: No Hx Chronic Obstructive Pulmonary Disease (COPD): No Hx Cancer: No Hx Cardiac Disorders: No Hx Congestive Heart Failure: No Hx Hypertension: No Hx Hypercholesterolemia: No Hx Pacemaker: No HX Cerebrovascular Accident: No Hx Seizures: No Hx Dementia: No Hx Diabetes: No Hx Gastrointestinal Disorders: No Hx Liver Disease: Yes (liver fibrosis) Hx Genitourinary Disorders: No Hx Sexually Transmitted Disorders: No Hx Renal Disease (ESRD): No Hx Thyroid Disease: No Hx Human Immunodeficiency Virus (HIV): Yes (SINCE 2008; ON EPZICOM AND REYATAZ BUT NOT COMPLIANT DUE TO DRINKING.) Hx Hepatitis C: Yes (S/P KRISTIAN TXPRESTON) Hx Depression: Yes Hx Suicide Attempt: No Hx Bipolar Disorder: No Hx Schizophrenia: No - Patient Surgical History Past Surgical History: Yes Hx Neurologic Surgery: No Hx Cataract Extraction: No Hx Cardiac Surgery: No Hx Lung Surgery: No Hx Breast Surgery: No Hx Breast Biopsy: No Hx Abdominal Surgery: Yes (ABSCESS exploratory sx in 2000) Hx Appendectomy: Yes (7 YEARS OLD) Hx Cholecystectomy: No Hx Genitourinary Surgery: No Hx Section: No Hx Orthopedic Surgery: No Hx Hysterectomy: No Anesthesia Reaction: No - PPD History Date: 12/30/17 - Smoking Cessation Smoking history: Current every day smoker Have you smoked in the past 12 months: Yes Aproximately how many cigarettes per day: 20 Cigars Per Day: 0 Hx Chewing Tobacco Use: No Initiated information on smoking cessation: Yes 'Breaking Loose' booklet given: 07/01/19 - Substances abused Alcohol Other (specify): 4-5 beers Substance route: Oral Frequency: Daily Amount used: 3 (40oz old spanish) Age of first use: 18 Date of last use: 07/01/19 Admission Physical Exam [facility] - Vital Signs Vital Signs: Vital Signs - 24 hr 07/01/19 14:42 Temperature 98.8 F Pulse Rate 103 H Respiratory 20 Rate Blood Pressure 118/75 - Physical General Appearance: Yes: Moderate Distress, Alcohol on Breath, Intoxicated, Irritable, Anxious HEENTM: Yes: EOMI, Hearing grossly Normal, Normocephalic, Normal Voice, Other ( edentulous) Respiratory: Yes: Chest Non-Tender, Lungs Clear, Normal Breath Sounds, No Respiratory Distress, No Accessory Muscle Use Neck: Yes: No masses,lesions,Nodules, Trachea in good position Cardiology: Yes: Regular Rhythm, Regular Rate, S1, S2, Tachycardia Abdominal: Yes: Soft, Protuberent Musculoskeletal: Yes: Other Extremities: Yes: Tremors, Swelling (r LE), Erythema (R LE , tender RIGHT ankle left leg length shorther than R), Other (r le w/ cast) Neurological: Yes: Fully Oriented, Alert Integumentary: Yes: Warm, Other (superficial excoriations left knee and left thigh) - Diagnostic (1) Alcohol dependence with uncomplicated withdrawal Current Visit: Yes Status: Chronic (2) Nicotine dependence Current Visit: No Status: Chronic Qualifiers: Nicotine product type: cigarettes Substance use status: uncomplicated Qualified Code(s): F17.210 - Nicotine dependence, cigarettes, uncomplicated Breathalyzer - Breathalyzer Breathalyzer: 0 POC Urine test - Test device test lot number: [id number] Expiration date: 12/15/19 - Control test control: Yes Urine Drug Screen - Test Device Lot number: [id number] Expiration date: 03/16/21 - Control Is test valid?: Yes - Results Drug screen NEGATIVE: No Urine drug screen results: BZO-Benzodiazepines Inpatient Rehab Admission - Rehab Decision to Admit Inpatient rehab admission?: No"
[2019-07-01] MEDS ORDERED: MAGNESIUM HYDROX 2400MG/30ML ORAL SUSPENSION 30 ML CUP PO PRN (16:30)
[2019-07-01] MEDS ORDERED: ACETAMINOPHEN 325 MG TABLET (FP) PO PRN ×2 (16:30)
[2019-07-01] MEDS ORDERED: MAG HYDROX/AL HYDROX/SIMETH 30 ML UNIT-DOSE CUP PO PRN (16:30)
[2019-07-01] MEDS ORDERED: IBUPROFEN 400 MG TABLET (FP) PO PRN (16:30)
[2019-07-01] MEDS ORDERED: MENTHOL/PHENOL 1 EACH UD MM PRN (16:30)
[2019-07-01] MEDS ORDERED: MAGNESIUM CITRATE 300 ML BOTTLE PO PRN (16:30)
[2019-07-01] MEDS ORDERED: chlordiazePOXIDE HCL 25 MG CAPSULE PO PRN (16:32)
[2019-07-01] MEDS: chlordiazePOXIDE HCL 25 MG CAPSULE PO SCH ×2 (17:36→22:42)
[2019-07-01] MEDS: METHOCARBAMOL 500 MG TABLET PO PRN (18:54)
[2019-07-01] MEDS: hydrOXYzine PAMOATE 25 MG CAPSULE (FP) PO PRN (18:54)
[2019-07-01] MEDS: MELATONIN 5 MG TABLETS PO PRN (22:42)
[2019-07-01] MEDS: THIAMINE HCL 100 MG TABLET (FP) PO SCH (22:42)
[2019-07-02] MEDS: chlordiazePOXIDE HCL 25 MG CAPSULE PO SCH ×4 (04:14→22:51)
[2019-07-02] MEDS: hydrOXYzine PAMOATE 25 MG CAPSULE (FP) PO PRN (07:31)
[2019-07-02] MEDS: PRENATAL VITAMINS W/ FOLIC ACID TABLET (FP) PO SCH (09:18)
[2019-07-02] MEDS: BISMUTH SUBSALICYLATE 524 MG/30 ML UD PO PRN ×2 (09:19→13:06)
[2019-07-02 10:29] LABS: HEMOGLOBIN 12.2 GM/dL (10.7-15.3); MCH 35.3 pg (25.7-33.7); MCHC 34.8 g/dl (32.0-36.0); MEAN CELL VOLUME 101.4 fl (80-96); MEAN PLT VOLUME 9.4 fl (7.5-11.1); PLATELET COUNT 156 K/MM3 (134-434); RBC 3.45 M/mm3 (3.60-5.2); RDW 13.2 % (11.6-15.6); WHITE BLOOD COUNT 4.5 K/mm3 (4.0-10.0)
--- NOTE | 2019-07-02 10:39 | PN ---
S CIWA - CIWA Score Nausea/Vomitin-No Nausea/No Vomiting Muscle Tremors: 2 Anxiety: 3 Agitation: 1-Slight > Activity Paroxysmal Sweats: 3 Orientation: 0-Oriented Tacttile Disturbances: 1-Very Mild Itch/Numbness Auditory Disturbances: 0-None Visual Disturbances: 0-None Headache: 1-Very Mild CIWA-Ar Total Score: 11 [facility] Progress Note (SOAP) Subjective: c/o anxiety, headache, shakes, and sweats. Objective: 07/02/19 10:38 Vital Signs 07/02/19 07/02/19 06:31 09:10 Temperature 98.2 F 98.1 F Pulse Rate 103 H 118 H Respiratory 18 16 Rate Blood Pressure 134/78 130/76 Labs pending. Assessment: 07/02/19 10:38 AOX3, in no acute respiratory distress. Full ROM, ambulating in the unit with a wheelchair. Withdrawal symptoms. Plan: continue detox.
[2019-07-02 10:41] LABS: ALBUMIN 2.9 g/dl (3.4-5.0); BILIRUBIN,TOTAL 1.3 mg/dL (0.2-1); CALCIUM 8.7 mg/dL (8.5-10.1); CREATININE 0.7 mg/dL (0.55-1.3); POTASSIUM 3.6 mmol/L (3.5-5.1); TOT PROT 7.6 g/dl (6.4-8.2)
[2019-07-02] MEDS: WITCH HAZEL 50% (TUCKS) 40 PAD/JAR PAD TP PRN (13:51)
[2019-07-02] MEDS: METHOCARBAMOL 500 MG TABLET PO PRN (22:51)
[2019-07-02] MEDS: MELATONIN 5 MG TABLETS PO PRN (22:51)
[2019-07-02] MEDS: THIAMINE HCL 100 MG TABLET (FP) PO SCH (22:52)
[2019-07-03] MEDS: chlordiazePOXIDE HCL 25 MG CAPSULE PO SCH ×4 (06:11→22:05)
[2019-07-03] MEDS: PRENATAL VITAMINS W/ FOLIC ACID TABLET (FP) PO SCH (10:50)
--- NOTE | 2019-07-03 11:42 | PN ---
S CIWA - CIWA Score Nausea/Vomitin-Mild Nausea/No Vomiting Muscle Tremors: 3 Anxiety: 2 Agitation: 1-Slight > Activity Paroxysmal Sweats: 1-Minimal Palms Moist Orientation: 0-Oriented Tacttile Disturbances: 1-Very Mild Itch/Numbness Auditory Disturbances: 0-None Visual Disturbances: 0-None Headache: 1-Very Mild CIWA-Ar Total Score: 10 S Progress Note (SOAP) Subjective: 58 years old female admitted on 07/01/19 for alcohol withdrawal sx management treated with librium detox regimen long history of cigarette smoking copd treated with ventolin prn discuss cigarette cessation right ankle fx "days ago" treated with cast and none weight bear ambulating with wheelchair pivot from bed to chair to toilet independently Objective: 07/03/19 11:49 Vital Signs Temperature 97.9 F 07/03/19 09:45 Pulse Rate 112 H 07/03/19 09:45 Respiratory Rate 20 07/03/19 09:45 Blood Pressure 118/78 07/03/19 09:45 O2 Sat by Pulse Oximetry (%) Laboratory Last Values WBC 4.5 K/mm3 (4.0-10.0) 07/02/19 07:55 RBC 3.45 M/mm3 (3.60-5.2) L 07/02/19 07:55 Hgb 12.2 GM/dL (10.7-15.3) 07/02/19 07:55 Hct 35.0 % (32.4-45.2) D 07/02/19 07:55 MCV 101.4 fl (80-96) H 07/02/19 07:55 MCH 35.3 pg (25.7-33.7) H 07/02/19 07:55 MCHC 34.8 g/dl (32.0-36.0) 07/02/19 07:55 RDW 13.2 % (11.6-15.6) 07/02/19 07:55 Plt Count 156 K/MM3 (134-434) D 07/02/19 07:55 MPV 9.4 fl (7.5-11.1) D 07/02/19 07:55 Sodium 140 mmol/L (136-145) 07/02/19 07:55 Potassium 3.6 mmol/L (3.5-5.1) 07/02/19 07:55 Chloride 108 mmol/L (98-107) H 07/02/19 07:55 Carbon Dioxide 26 mmol/L (21-32) 07/02/19 07:55 Anion Gap 6 MMOL/L (8-16) L 07/02/19 07:55 BUN 14.0 mg/dL (7-18) 07/02/19 07:55 Creatinine 0.7 mg/dL (0.55-1.3) 07/02/19 07:55 Est GFR (CKD-EPI)AfAm 110.69 07/02/19 07:55 Est GFR (CKD-EPI)NonAf 95.50 07/02/19 07:55 Random Glucose 87 mg/dL (74-106) 07/02/19 07:55 Calcium 8.7 mg/dL (8.5-10.1) 07/02/19 07:55 Total Bilirubin 1.3 mg/dL (0.2-1) H 07/02/19 07:55 AST 59 U/L (15-37) H 07/02/19 07:55 ALT 39 U/L (13-61) 07/02/19 07:55 Alkaline Phosphatase 88 U/L (45-117) 07/02/19 07:55 Total Protein 7.6 g/dl (6.4-8.2) 07/02/19 07:55 Albumin 2.9 g/dl (3.4-5.0) L 07/02/19 07:55 RPR Titer Nonreactive (NONREACTIVE) 07/02/19 07:55 lab noted Assessment: 07/03/19 11:49 alcohol withdrawal sx Plan: continue librium detox regimen
[2019-07-03] MEDS: hydrOXYzine PAMOATE 25 MG CAPSULE (FP) PO PRN ×2 (12:55→22:05)
[2019-07-03] MEDS: ALBUTEROL SO4 8 GM HFA INHALER IH PRN ×2 (12:55→20:31)
[2019-07-03] MEDS: METHOCARBAMOL 500 MG TABLET PO PRN (17:59)
[2019-07-03] MEDS: MELATONIN 5 MG TABLETS PO PRN (22:05)
[2019-07-03] MEDS: THIAMINE HCL 100 MG TABLET (FP) PO SCH (22:05)
[2019-07-04] MEDS: METHOCARBAMOL 500 MG TABLET PO PRN ×3 (00:03→16:30)
[2019-07-04] MEDS: hydrOXYzine PAMOATE 25 MG CAPSULE (FP) PO PRN (01:25)
[2019-07-04] MEDS: chlordiazePOXIDE HCL 10 MG CAPSULE PO PRN ×2 (01:25→14:06)
[2019-07-04] MEDS: chlordiazePOXIDE HCL 10 MG CAPSULE PO SCH ×3 (05:48→17:24)
[2019-07-04] MEDS: PRENATAL VITAMINS W/ FOLIC ACID TABLET (FP) PO SCH (10:10)
[2019-07-04] MEDS: WITCH HAZEL 50% (TUCKS) 40 PAD/JAR PAD TP PRN (10:10)
--- NOTE | 2019-07-04 12:25 | CONSULT ---
[facility] Psychiatric Consult - Data Date of interview: 07/04/19 Admission source: [facility] Identifying data: Readmission to [facility] for this 58 y/o female from [place] ancestry self-referred for detoxification (ROSALIE issues : alcohol, opioid). Patient is , no children, domiciled, unemployed and supported on [employer] funds. Substance Abuse History: Discussed. Details in current [facility] report as follows : Smoking history: Current every day smoker. Have you smoked in the past 12 months: Yes. Aproximately how many cigarettes per day: 20. Cigars Per Day: 0. Hx Chewing Tobacco Use: No. Initiated information on smoking cessation: Yes. 'Breaking Loose' booklet given: 07/01/19. - Substances abused. Alcohol. Other (specify): 4-5 beers. Substance route: Oral. Frequency: Daily. Amount used: 3 (40oz old ecuadorean). Age of first use: 18. Date of last use: 07/01/19 Medical History: Medical profile is remarkable for HIV infection since 2008 (on HAART medications), hepatitis C (treated with harvoni), past history of surgeries (exploratory laparotomy in 2000 for abcess + discal issues in lumbar spine) and a remote history of [place] ( right foot casted). Psychiatric History: Patient denies history of psychiatric hospitalizations or suicide attempts. Ms Abdi has reportedly [facility] ([facility]/ [facility] (three weeks ago). Physical/Sexual Abuse/Trauma History: Patient denies history of abuse. Additional Comment: Urine drug screen results: BZO-Benzodiazepines. Noted. Mental Status Exam - Mental Status Exam Alert and Oriented to: Time, Place, Person Cognitive Function: Good Patient Appearance: Well Groomed Mood: Sad, Withdrawn Affect: Mood Congruent, Constricted Patient Behavior: Fatigued, Appropriate, Cooperative Speech Pattern: Clear Voice Loudness: Normal Thought Process: Intact, Goal Oriented Thought Disorder: Not Present Hallucinations: Denies Suicidal Ideation: Denies Homicidal Ideation: Denies Insight/Judgement: Poor Sleep: Fair Appetite: Fair Gait/Station: Normal Psychiatric Findings - Problem List ([place] 1, 2,3) (1) Alcohol dependence with uncomplicated withdrawal Current Visit: Yes Status: Acute (2) Nicotine dependence Current Visit: Yes Status: Chronic Qualifiers: Nicotine product type: cigarettes Substance use status: uncomplicated Qualified Code(s): F17.210 - Nicotine dependence, cigarettes, uncomplicated (3) Substance induced mood disorder Current Visit: Yes Status: Chronic - Initial Treatment Plan Initial Treatment Plan: Psychoeducation. Sleep hygiene. Detoxification. Patient consents only to detoxification protocol. AA meetings. Groups. Support. Observation.
--- NOTE | 2019-07-04 14:04 | PN ---
S CIWA - CIWA Score Nausea/Vomitin-No Nausea/No Vomiting Muscle Tremors: 2 Anxiety: 2 Agitation: 2 Paroxysmal Sweats: No Perspiration Orientation: 0-Oriented Tacttile Disturbances: 0-None Auditory Disturbances: 0-None Visual Disturbances: 0-None Headache: 0-None Present CIWA-Ar Total Score: 6 BHS Progress Note (SOAP) Subjective: 58 YEARS OLD FEMALE ADMITTED ON 07/01/19 FOR ALCOHOL WITHDRAWAL SX MANAGEMENT TREATED WITH LIBRIUM DETOX REGIMEN AMBULATING WITHOUT WHEELCHAIR "I CAN WALK WITHOUT WHEELCHAIR" RECOMMEND CANE FOR SUPPORT THAT THE PATIENT DOES NOT LIKE TO USE WHEELCHAIR TO WALK Objective: 07/04/19 14:03 Vital Signs Temperature 97.4 F L 07/04/19 13:10 Pulse Rate 123 H 07/04/19 13:10 Respiratory Rate 18 07/04/19 13:10 Blood Pressure 130/84 07/04/19 13:10 O2 Sat by Pulse Oximetry (%) 07/04/19 14:04 Laboratory Last Values WBC 4.5 K/mm3 (4.0-10.0) 07/02/19 07:55 RBC 3.45 M/mm3 (3.60-5.2) L 07/02/19 07:55 Hgb 12.2 GM/dL (10.7-15.3) 07/02/19 07:55 Hct 35.0 % (32.4-45.2) D 07/02/19 07:55 MCV 101.4 fl (80-96) H 07/02/19 07:55 MCH 35.3 pg (25.7-33.7) H 07/02/19 07:55 MCHC 34.8 g/dl (32.0-36.0) 07/02/19 07:55 RDW 13.2 % (11.6-15.6) 07/02/19 07:55 Plt Count 156 K/MM3 (134-434) D 07/02/19 07:55 MPV 9.4 fl (7.5-11.1) D 07/02/19 07:55 Sodium 140 mmol/L (136-145) 07/02/19 07:55 Potassium 3.6 mmol/L (3.5-5.1) 07/02/19 07:55 Chloride 108 mmol/L (98-107) H 07/02/19 07:55 Carbon Dioxide 26 mmol/L (21-32) 07/02/19 07:55 Anion Gap 6 MMOL/L (8-16) L 07/02/19 07:55 BUN 14.0 mg/dL (7-18) 07/02/19 07:55 Creatinine 0.7 mg/dL (0.55-1.3) 07/02/19 07:55 Est GFR (CKD-EPI)AfAm 110.69 07/02/19 07:55 Est GFR (CKD-EPI)NonAf 95.50 07/02/19 07:55 Random Glucose 87 mg/dL (74-106) 07/02/19 07:55 Calcium 8.7 mg/dL (8.5-10.1) 07/02/19 07:55 Total Bilirubin 1.3 mg/dL (0.2-1) H 07/02/19 07:55 AST 59 U/L (15-37) H 07/02/19 07:55 ALT 39 U/L (13-61) 07/02/19 07:55 Alkaline Phosphatase 88 U/L (45-117) 07/02/19 07:55 Total Protein 7.6 g/dl (6.4-8.2) 07/02/19 07:55 Albumin 2.9 g/dl (3.4-5.0) L 07/02/19 07:55 RPR Titer Nonreactive (NONREACTIVE) 07/02/19 07:55 LAB NOTED Assessment: 07/04/19 14:04 ALCOHOL WITHDRAWAL SX Plan: CONTINUE LIBRIUM DETOX REGIMEN
[2019-07-04] MEDS: ALBUTEROL SO4 8 GM HFA INHALER IH PRN (15:21)
[2019-07-04 18:45] VITALS: BP 118/82; PULSE 121; TEMP 96.6
--- NOTE | 2019-07-04 19:01 | DS ---
[facility] Detox Discharge Summary Admission Date: 07/01/19 Discharge Date: 07/04/19 - History Present History: Alcohol Dependence Additional Comments: PT. REQUESTED TO LEAVE AMA. MET WITH THE PT. ON THE UNIT. DISCUSSED THE BENEFITS OF COMPLETING DETOX WITH WELL THE RISKS OF LEAVING AMA. SHE STATED SHE DID NOT WISH TO REMAIN IN DETOX AND "FEELS BETTER". SHE STATES SHE HAS A FOLLOW-UP APPOINTMENT WITH HER PCP ON 07/05/19. PT. STATED SHE DID NOT NEED RX REFILL SENT TO HER PHARMACY; SHE STATED THAT SHE KNOWS HOW TO GET HOME FROM [facility] SHE HAS BEEN HERE FOR DETOX MULTIPLE TIMES. PT. ENCOURAGED TO STAY ; HAS A CAST TO RIGHT FOOT AND TACHYCARDIC. ADAMANT SHE WANTED TO LEAVE [facility]. - Physical Exam Results Vital Signs: Vital Signs Temperature 96.6 F L 07/04/19 18:44 Pulse Rate 121 H 07/04/19 18:44 Respiratory Rate 18 07/04/19 18:44 Blood Pressure 118/82 07/04/19 18:44 O2 Sat by Pulse Oximetry (%) Pertinent Admission Physical Exam Findings: Laboratory Last Values WBC 4.5 K/mm3 (4.0-10.0) 07/02/19 07:55 RBC 3.45 M/mm3 (3.60-5.2) L 07/02/19 07:55 Hgb 12.2 GM/dL (10.7-15.3) 07/02/19 07:55 Hct 35.0 % (32.4-45.2) D 07/02/19 07:55 MCV 101.4 fl (80-96) H 07/02/19 07:55 MCH 35.3 pg (25.7-33.7) H 07/02/19 07:55 MCHC 34.8 g/dl (32.0-36.0) 07/02/19 07:55 RDW 13.2 % (11.6-15.6) 07/02/19 07:55 Plt Count 156 K/MM3 (134-434) D 07/02/19 07:55 MPV 9.4 fl (7.5-11.1) D 07/02/19 07:55 Sodium 140 mmol/L (136-145) 07/02/19 07:55 Potassium 3.6 mmol/L (3.5-5.1) 07/02/19 07:55 Chloride 108 mmol/L (98-107) H 07/02/19 07:55 Carbon Dioxide 26 mmol/L (21-32) 07/02/19 07:55 Anion Gap 6 MMOL/L (8-16) L 07/02/19 07:55 BUN 14.0 mg/dL (7-18) 07/02/19 07:55 Creatinine 0.7 mg/dL (0.55-1.3) 07/02/19 07:55 Est GFR (CKD-EPI)AfAm 110.69 07/02/19 07:55 Est GFR (CKD-EPI)NonAf 95.50 07/02/19 07:55 Random Glucose 87 mg/dL (74-106) 07/02/19 07:55 Calcium 8.7 mg/dL (8.5-10.1) 07/02/19 07:55 Total Bilirubin 1.3 mg/dL (0.2-1) H 07/02/19 07:55 AST 59 U/L (15-37) H 07/02/19 07:55 ALT 39 U/L (13-61) 07/02/19 07:55 Alkaline Phosphatase 88 U/L (45-117) 07/02/19 07:55 Total Protein 7.6 g/dl (6.4-8.2) 07/02/19 07:55 Albumin 2.9 g/dl (3.4-5.0) L 07/02/19 07:55 RPR Titer Nonreactive (NONREACTIVE) 07/02/19 07:55 LABS NOTED - Medication Discharge Medications: Ambulatory Orders Abacavir Sulfate/Lamivudine [Epzicom -] 1 tab PO DAILY 05/19/12 Atazanavir [Reyataz -] 400 mg PO DAILY 12/01/16 - Diagnosis (1) History of hepatitis C virus infection Current Visit: Yes Status: Chronic (2) Fracture of right foot Current Visit: Yes Status: Acute (3) Alcohol dependence with uncomplicated withdrawal Current Visit: Yes Status: Chronic (4) Nicotine dependence Current Visit: Yes Status: Chronic Qualifiers: Nicotine product type: cigarettes Substance use status: uncomplicated Qualified Code(s): F17.210 - Nicotine dependence, cigarettes, uncomplicated (5) HIV (human immunodeficiency virus infection) Current Visit: Yes Status: Chronic Qualifiers: HIV symptom status: asymptomatic Qualified Code(s): Z21 - Asymptomatic human immunodeficiency virus [HIV] infection status (6) Tachycardia Current Visit: Yes Status: Chronic - AMA Did Patient Leave Against Medical Advice: Yes
[2019-07-05] MEDS ORDERED: chlordiazePOXIDE HCL 10 MG CAPSULE PO SCH (05:00)
[2019-07-06] MEDS ORDERED: chlordiazePOXIDE HCL 10 MG CAPSULE PO ONE (05:00)
== END 2019-07-04 18:57 | disposition left against medical advice (07) | DRG 770 ==
LOC: YASAS 13:11 → Y3N 16:47
PROVIDERS: ADMIT Allergy & Immunology; ATTEND Allergy & Immunology
PROC: HZ2ZZZZ Detoxification Services for Substance Abuse Treatment (ICD-10-PCS; principal; 2019-07-01)
DX: F10.230 Alcohol dependence with withdrawal, uncomplicated (principal); F17.210 Nicotine dependence, cigarettes, uncomplicated; F19.24 Other psychoactive substance dependence with psychoactive substance-induced mood disorder; Z21 Asymptomatic human immunodeficiency virus [HIV] infection status; J44.9 Chronic obstructive pulmonary disease, unspecified; K74.0 Hepatic fibrosis; B18.2 Chronic viral hepatitis C; R00.0 Tachycardia, unspecified; S92.101D Unspecified fracture of right talus, subsequent encounter for fracture with routine healing; W10.8XXD Fall (on) (from) other stairs and steps, subsequent encounter; Z99.3 Dependence on wheelchair
CPT/HCPCS: 36415; 80053; 85027; 86593

== ENCOUNTER 2019-09-21 14:24 | Inpatient (IN) | payer OTHER ==
--- NOTE | 2019-09-21 14:41 | PDOC ---
Rapid Medical Evaluation Chief Complaint: Pain Time Seen by Provider: 09/21/19 14:35 Medical Evaluation: Allergies Allergy/AdvReac Type Severity Reaction Status Date / Time No Known Allergies Allergy Verified 09/21/19 14:34 09/21/19 14:36 Pt presents to the ER for evaluation of fever bodyaches, and abdominal pain. Had presented to [facility] for detox and was sent over here for medical clearance. Last drink 11am; beer. Also endorses SOB Exam: TTP of the LUQ, LLQ, epigastric. Lungs CTAB Orders: Labs, EKG, Flu, IV insert, IVF Pt to proceed to the ER for evaluation 09/21/19 14:43 Discharge Disposition - Diagnosis Abdominal pain Qualifiers: Abdominal location: generalized Qualified Code(s): R10.84 - Generalized abdominal pain - Referrals - Patient Instructions - Post Discharge Activity
--- NOTE | 2019-09-21 16:16 | PDOC ---
History of Present Illness - General Chief Complaint: Pain Stated Complaint: ABD PAIN Time Seen by Provider: 09/21/19 14:35 - History of Present Illness Initial Comments: 09/21/19 17:42 58 y/o F hx of alcohol dependence, HepC, Bipolar disorder, presents to the ER from [facility] for fever and myalgias of 1 day duration. She reports a fever of 104 at [facility] facility. She endorses chills, abdominal pain and night sweats and diarrhea. She denies nausea, vomiting, bloody stools, dysuria or hematuria. Her last drink was today morning shea 10/11 a.m. She reports drinking six. 24 oz cans of beer in the last 24 hours. She denies history of seizures from withdrawals . Past History - Past Medical History Allergies/Adverse Reactions: Allergies Allergy/AdvReac Type Severity Reaction Status Date / Time No Known Allergies Allergy Verified 09/24/19 19:14 Home Medications: Ambulatory Orders Abacavir Sulfate/Lamivudine [Epzicom -] 1 tab PO DAILY 05/19/12 Atazanavir [Reyataz -] 400 mg PO DAILY 12/01/16 Ipratropium [place] [Atrovent Hfa] 2 puff IH QID 09/22/19 Acetaminophen [Tylenol .Regular Strength -] 650 mg PO Q6H PRN tablet 09/24/19 Albuterol 0.083% Nebulizer [place]ige [Ventolin 0.083% Nebulizer Soln -] 1 amp NEB Q6H PRN amp 09/24/19 Budesonide/Formeterol Fumarate [SYMBICORT 160/4.5mcg -] 2 puff IH BID inhaler 09/24/19 Folic Acid - 1 mg PO DAILY tablet 09/24/19 Multivitamins [Multivit (RH Formulary)] 1 tab PO DAILY tab 09/24/19 Oseltamivir Phosphate [Tamiflu -] 75 mg PO BID capsule 09/24/19 Pantoprazole Sodium [Protonix -] 20 mg PO DAILY tablet.ec 09/24/19 Oseltamivir Phosphate [Tamiflu -] 75 mg PO BID #10 capsule 09/26/19 Anemia: No Asthma: No Cancer: No Cardiac Disorders: No CVA: No COPD: No CHF: No Dementia: No Diabetes: No GI Disorders: No Disorders: No HTN: No Hypercholesterolemia: No Kidney Stones: No Liver Disease: Yes (liver fibrosis, h/o hepatitis C) Psychiatric Problems: Yes (Anxiety) Seizures: No Thyroid Disease: No Other medical history: h/o polysubstance abuse - Surgical History Abdominal Surgery: Yes (ABSCESS exploratory sx in 2000) Appendectomy: Yes (7 YEARS OLD) Cardiac Surgery: No Cholecystectomy: No Lung Surgery: No Neurologic Surgery: No Orthopedic Surgery: No - Reproductive History PID: No - Psycho Social/Smoking Cessation Hx Smoking History: Current some day smoker Have you smoked in the past 12 months: Yes Number of Cigarettes Smoked Daily: 10 Cigars Per Day: 0 Information on smoking cessation initiated: No 'Breaking Loose' booklet given: 07/01/19 Hx Alcohol Use: Yes Drug/Substance Use Hx: No Substance Use Type: Alcohol Hx Substance Use Treatment: No *Physical Exam - Vital Signs Last Vital Signs Temp Pulse Resp BP Pulse Ox 99.9 F H 115 H 16 119/72 95 09/21/19 14:37 09/21/19 14:37 09/21/19 14:37 09/21/19 14:37 09/21/19 14:37 - Physical Exam 09/21/19 17:15 Constitutional: Awake, alert, oriented. No acute distress, flushed appearance. Head: Normocephalic. Atraumatic Eyes: EOMI. Conjunctivae are not pale. ENT: Mucous membranes are moist and intact. Posterior pharynx without exudates or erythema. Uvula midline. Neck: Supple. Full ROM. No lymphadenopathy. Cardiovascular: tachycardic. Regular rhythm. S1, S2 regular. Distal pulses are 2+ and symmetric. Pulmonary/Chest: No evidence of respiratory distress. Clear to auscultation bilaterally No wheezing, rales or rhonchi. Abdominal: Soft and non-distended. ttp to LUQ.LLQ, suprapubic with guarding. hyperactive bowel sounds. Back: No CVA tenderness. Musculoskeletal: No edema. No cyanosis. No clubbing. Full range of motion in all extremities. No calf tenderness. Radial/pedal pulses are intact and 2+ bilaterally Skin: Skin is warm and dry, flushed No petechiae. No purpura. Neurological: Alert and oriented to person, place, and time. Cranial nerves II -XII are grossly intact. Normal speech. Strength is grossly symmetric. No sensory deficits. Psychiatric: Good eye contact. Normal interaction, affect and behavior. ED Treatment Course - LABORATORY CBC & Chemistry Diagram: 09/24/19 10:54 09/24/19 10:54 Medical Decision Making - Medical Decision Making 09/21/19 17:18 58 y/o F hx of alcohol dependence, HepC, Bipolar disorder, presents to the ER from [facility] for fever and myalgias of 1 day duration lactic acid elevated to 2.7 low grade fever 99.9 flu + will receive 1L NS tylenol librium 25 mg PO. pt tremulous 09/21/19 17:57 given an additional 25mg PO of librium and banana bag. 09/21/19 17:58 Discharge - Discharge Information Problems reviewed: Yes Clinical Impression/Diagnosis: Abdominal pain Qualifiers: Abdominal location: generalized Qualified Code(s): R10.84 - Generalized abdominal pain Condition: Improved Disposition: I.P. ALCOHOL/SUBS ABUSE REHAB - Follow up/Referral - Patient Discharge Instructions - Post Discharge Activity
[2019-09-21 16:20] LABS: BASO % 0.4 % (0-2.0); EOS % 0.6 % (0-4.5); HEMATOCRIT 43.5 % (32.4-45.2); HEMOGLOBIN 15.4 GM/dL (10.7-15.3); MCH 35.3 pg (25.7-33.7); MCHC 35.3 g/dl (32.0-36.0); MEAN CELL VOLUME 100.1 fl (80-96); MEAN PLT VOLUME 9.2 fl (7.5-11.1); MONO % 15.8 % (3.8-10.2); NEUT % 63.2 % (42.8-82.8); PLATELET COUNT 164 K/MM3 (134-434); RBC 4.35 M/mm3 (3.60-5.2); RDW 12.5 % (11.6-15.6); WHITE BLOOD COUNT 7.7 K/mm3 (4.0-10.0)
[2019-09-21 16:53] LABS: ALBUMIN 3.1 g/dl (3.4-5.0); BILIRUBIN,TOTAL 0.7 mg/dL (0.2-1); BLOOD UREA NITROGEN 11.1 mg/dL (7-18); CALCIUM 8.3 mg/dL (8.5-10.1); CREATININE 0.7 mg/dL (0.55-1.3); POTASSIUM 3.4 mmol/L (3.5-5.1); TOT PROT 7.8 g/dl (6.4-8.2)
--- NOTE | 2019-09-21 16:59 | PDOC ---
Attending Attestation - Resident Resident Name: Josh Wardmiketito - ED Attending Attestation I have performed the following: I have examined & evaluated the patient, The case was reviewed & discussed with the resident, I agree w/resident's findings & plan, Exceptions are as noted - HPI HPI: 09/21/19 17:51 58yo female sent from [facility] where she presented for etoh withdrawal and requesting detox. Pt with a fever today and abd pain. No n/v, last bm was 3am yesterday. pt with epigastric pain. pt drinks 4 40oz beers a day. Pt states she wants to stop drinking. Denies recent travel, recent abx. No sick contacts. States fever started today. - Physicial Exam PE: 09/21/19 17:54 Gen: aaox3, tongue fasciculations, hand tremors heent: dry mm neck: supple heart: +s1s2 tachy lungs: cta b/l abd: soft, epigatric ttp, no rebound or guarding ext: hand tremors, no c/c/e - Medical Decision Making 09/21/19 18:00 a/p: 58yo female from [facility] for medical clearance -pt with fevers, abd pain, cough -pt with mild alcohol withdrawal at this time -pt with labs sent from [facility] - Flu B + -ivf, tylenol started -will also start tamiflu -mildly elevated lipase -will give banana bag -librium -pt will need ivf hydration, potassium replacement and treatment of her alcohol detox 09/21/19 18:12 no isolation rooms at [facility] - will admit for etoh withdrawal and flu b+ tamiflu started 09/21/19 19:44 resident discussed the case with medicine who accepts pt to service Heart Score/ECG Review - ECG Intrepretation Comment:: 09/21/19 16:59 sinus tach at 105, nl axis, nl interval, no acute st/t wave findings
[2019-09-21] MEDS ORDERED: ACETAMINOPHEN 500 MG TABLET (FP) PO ONE (17:14)
[2019-09-21] MEDS ORDERED: chlordiazePOXIDE HCL 25 MG CAPSULE PO ONE ×2 (17:14→17:38)
[2019-09-21] MEDS ORDERED: SODIUM CHLORIDE 0.9% 500 ML INFUS.BAG IV ONE (17:14)
[2019-09-21] MEDS ORDERED: ACETAMINOPHEN INJECTION 100 ML IVPB ONE (17:20)
[2019-09-21] MEDS ORDERED: chlordiazePOXIDE HCL 25 MG CAPSULE ONE ×3 (17:20→21:18)
[2019-09-21] MEDS ORDERED: FOLIC ACID INJECTION - 1 MG, THIAMINE HCL 100 MG, MULTIVIT INJECTION ADULT 10 ML in SOD... IVPB ONE (17:38)
[2019-09-21] MEDS ORDERED: OSELTAMIVIR PHOSPHATE 75 MG CAPSULE PO ONE (17:51)
[2019-09-21 18:26] LABS: COCAINE, UR NEGATIVE ng/ml (CUTOFF=300); METHADONE, UR NEGATIVE ng/ml (CUTOFF=300); OPIATES, URI NEGATIVE ng/ml (CUTOFF=300); PHENCYCLIDINE,URINE NEGATIVE ng/ml (CUTOFF=25); URINE AMPHETAMINES NEGATIVE ng/ml (CUTOFF=500); URINE BARBITURATES NEGATIVE ng/ml (CUTOFF=200); URINE BENZODIAZEPINES NEGATIVE ng/ml (CUTOFF=200)
[2019-09-21] MEDS ORDERED: KCL 10 MEQ IVPB 10 MEQ/100 ML INFUS.BAG IVPB ONE ×2 (18:35→20:42)
[2019-09-21] MEDS ORDERED: OSELTAMIVIR PHOSPHATE 75 MG CAPSULE ONE (18:35)
[2019-09-21] MEDS: KCL 10 MEQ IVPB 10 MEQ/100 ML INFUS.BAG IVPB SCH ×2 (18:43→20:40)
[2019-09-21 19:13] LABS: EPI CELLS 3.1 /HPF (0-5/HPF); HYALINE CASTS 1 /lpf (0-8); PH,URINE 6.5 (5.0-8.0); URINE APPEARANCE CLEAR; URINE BACTERIA 79.5 /hpf (NEGATIVE); URINE BILIRUBIN NEGATIVE (NEGATIVE); URINE COLOR YELLOW; URINE GLUCOSE (UA) NEGATIVE (NEGATIVE); URINE KETONE TRACE (NEGATIVE); URINE LEUK ESTERASE NEGATIVE (NEGATIVE); URINE NITRITE NEGATIVE (NEGATIVE); URINE PROTEIN NEGATIVE (NEGATIVE); URINE RBC 31 /hpf (0-4); URINE WBC 1 /hpf (0-5)
[2019-09-21] MEDS ORDERED: chlordiazePOXIDE HCL 10 MG CAPSULE PO PRN (19:55)
[2019-09-21] MEDS ORDERED: HEPARIN NA (PORCINE) 5,000 UNITS/ML 1ML VIAL ONE (21:18)
[2019-09-21] MEDS: LACTATED RINGERS SOLUTION 1,000 ML IV SCH (21:33)
[2019-09-21] MEDS: chlordiazePOXIDE HCL 25 MG CAPSULE PO SCH (21:33)
[2019-09-21] MEDS: HEPARIN NA (PORCINE) 5,000 UNITS/ML 1ML VIAL SQ SCH (21:33)
--- NOTE | 2019-09-21 22:51 | PN ---
Teaching Attending Note Name of Resident: Hasmukh Alcocer ATTENDING PHYSICIAN STATEMENT I saw and evaluated the patient. I reviewed the resident's note and discussed the case with the resident. I agree with the resident's findings and plan as documented. SUBJECTIVE: 58 yo female With a history of HIV (Not currently taking medications due to drinking alcohol), hep C(Underwent 3 months of Antiviral treatment) sent from [facility] where she presented for etoh withdrawal and requesting detox. Patient developed fever and abdominal pain, multiple episodes of nonbilious, nonbloody vomiting, some loose stools. Drinks about 4x 40 ounce beers per day. Last drink was the same day as she was noted to be positive for EtOH in the emergency room. Patient was swabbed for influenza and was noted to be positive for influenza B. Patient reported underlying fibrosis of liver however does not know degree. OBJECTIVE: Last Vital Signs Temp Pulse Resp BP Pulse Ox 98.8 F 114 H 18 110/68 100 09/21/19 21:10 09/21/19 21:10 09/21/19 21:10 09/21/19 21:10 09/21/19 21:10 GENERAL: Nontoxic-appearing, disheveled, no acute distress. HEENT: Normocephalic, atraumatic. PERRLA, EOMI. No conjunctival pallor. Sclera are non- icteric. Moist mucous membranes. NECK: Supple. Full ROM. No JVD. Carotid pulses 2+ and symmetric, without bruits. No thyromegaly. No lymphadenopathy. CARDIOVASCULAR: Regular rate and rhythm. No murmurs, rubs, or gallops. Distal pulses are 2+ and symmetric. PULMONARY: No evidence of respiratory distress. Lungs clear to auscultation bilaterally. No wheezing, rales or rhonchi. ABDOMINAL: Soft. Non-tender. Non-distended. No rebound or guarding. No organomegaly. Normoactive bowel sounds. MUSCULOSKELETAL Normal range of motion at all joints. No bony deformities or tenderness. No CVA tenderness. EXTREMITIES: No cyanosis. No clubbing. No edema. No calf tenderness. SKIN: Warm and dry. Normal capillary refill. No rashes. No jaundice. PSYCHIATRIC: Cooperative. Good eye contact. Appropriate mood and affect. Abnormal Lab Results 09/21/19 09/21/19 09/21/19 15:22 15:22 15:32 Hgb 15.4 H MCV 100.1 H MCH 35.3 H Monocytes % 15.8 H Sodium 131 L Potassium 3.4 L Chloride 96 L Lactic Acid Calcium 8.3 L AST 76 H Albumin 3.1 L Lipase 441 H Urine Ketones Urine Blood Alcohol, Quantitative 46.0 H Influenza B (Rapid) 09/21/19 09/21/19 09/21/19 15:32 15:32 17:36 Hgb MCV MCH Monocytes % Sodium Potassium Chloride Lactic Acid 2.7 H* Calcium AST Albumin Lipase Urine Ketones Trace H Urine Blood 2+ H Alcohol, Quantitative Influenza B (Rapid) Positive A Imaging studies reviewed ASSESSMENT AND PLAN: 58-year-old woman, chronic EtOH abuse positive for influenza B. Suspect impending EtOH withdrawal. Urine toxicology was negative for other substances. Positive for electrolyte derangements including hyponatremia, hypokalemia, hypochloremiasuspect likely secondary to vomiting as well as beer potomania. Admit to MedSurg Tamiflu 75 mg p.o. twice daily IV fluid hydration Zofran IV as needed if nausea and vomiting Tylenol PRN PRN if fever Droplet precautions Thiamine, folate, multivitamin Liver ultrasound To evaluate for cirrhosis CIWA protocol Librium protocol Strongly recommended to patient to abstain from alcohol as she reports underlying fibrosis likely secondary to hepatitis C and/or chronic EtOH abuse Check mag and phosphate, Replete electrolytes PRN including potassium Bedrest and fall precautions #Hepatitis CStatus post treatment completion Would send her to hepatology clinic as an outpatient #Hypoalbuminemia #HIVnot taking antiretrovirals at this time. Noted to be previously on Epzicom and atazanavir Send CD4 count, HIV viral load RNA PCR Infectious disease consultation for ART medication approval #Lactic acidosissuspect this secondary to EtOH intoxication IV fluid hydration Repeat lactate #DVT prophylaxisheparin subcutaneously
--- NOTE | 2019-09-22 01:01 | HP ---
CHIEF COMPLAINT: fever, muscle pains HISTORY OF PRESENT ILLNESS: Melita Abdi is a 58 year old female with a past medical history of HIV (on medications but not taking), Hep C, anxiety, bipolar disorder, alcohol dependence who presents from [facility] with chief complaints of fevers, myalgias , diarrhea, generalized weakness. The patient states that for the last week she had been feeling unwell with subjective fevers, chills, loose stools, weakness, one episode of NBNB emesis, poor PO intake, headaches, cough productive of white sputum, and minor abdominal pain. She denies cp, sob, syncope, difficulty swallowing, focal weakness, numbness, tingling. Denied hematochezia, hematemesis. Denied recent antibiotic use. Denied sick contacts or recent travel. Stated that she is HIV positive but has not taken her medications in several months and prior to that stated that she was unsure of what her CD4 or viral load were but thought CD4 was in the 400s. Receives her treatment through the [facility]. Also noted that she was treated for HCV in the past for 3 months. Endorsed that she drinks 8 24 oz beers per day and she does not eat when she drinks. Denies history of withdrawal seizures, delirum tremens, or blackouts. Denied other drug use. ER course was notable for: (1) HR 115-129 (2) Na 131, K 2.4, lactic 2.7, Alcohol 46, Flu B+ (3) Given 1g Tylenol, Tamiflu, NS 1L, 2 riders of potassium, Librium 50 Recent Travel: denies PAST MEDICAL HISTORY: as above PAST SURGICAL HISTORY: appendectomy, exploratory surgery for intraabdominal abscess Social History: Smokin/2 ppd former smoker Alcohol: 8 24oz beers daily Drugs: endorses remote IVDU. Not currently using HASA. Lives in community. Allergies No Known Allergies Allergy (Verified 09/21/19 14:34) HOME MEDICATIONS: Home Medications Medication Instructions Recorded Abacavir Sulfate/Lamivudine 1 tab PO DAILY 05/19/12 [Epzicom -] Atazanavir [Reyataz -] 400 mg PO DAILY 12/01/16 REVIEW OF SYSTEMS CONSTITUTIONAL: fever, chills, generalized weakness, loss of appetite Absent: diaphoresis, malaise, weight change HEENT: Absent: rhinorrhea, nasal congestion, throat pain, throat swelling, difficulty swallowing, visual changes CARDIOVASCULAR: Absent: chest pain, syncope, palpitations, irregular heart rate, lightheadedness RESPIRATORY: cough productive of white sputum Absent: shortness of breath, dyspnea with exertion, orthopnea, wheezing, GASTROINTESTINAL: abdominal pain, nausea, vomiting, diarrhea Absent: abdominal distension, constipation, melena, hematochezia GENITOURINARY: Absent: dysuria, frequency, urgency, hesitancy, hematuria, flank pain MUSCULOSKELETAL: myalgia, back pain Absent: arthralgia, joint swelling, neck pain SKIN: Absent: rash, itching, pallor HEMATOLOGIC/IMMUNOLOGIC: Absent: easy bleeding, easy bruising, lymphadenopathy, frequent infections ENDOCRINE: Absent: unexplained weight gain, unexplained weight loss, heat intolerance, cold intolerance NEUROLOGIC: headache Absent: focal weakness or paresthesias, dizziness, unsteady gait, seizure, mental status changes PSYCHIATRIC: Absent: anxiety, depression, suicidal or homicidal ideation, hallucinations. PHYSICAL EXAMINATION Vital Signs - 24 hr 09/21/19 09/21/19 09/21/19 14:37 16:27 21:10 Temperature 99.9 F H 98.6 F 98.8 F Pulse Rate 115 H Pulse Rate [ 129 H 114 H Left Radial] Respiratory 16 18 Rate Blood Pressure 119/72 Blood Pressure 126/82 110/68 [Right Arm] O2 Sat by Pulse 95 96 100 Oximetry (%) GENERAL: Awake, alert, and fully oriented, in no acute distress. Mildly tremulous. HEAD: Normal with no signs of trauma. EYES: Pupils equal, round and reactive to light, extraocular movements intact, sclera anicteric, conjunctiva clear. EARS, NOSE, THROAT: Oropharynx clear without exudates. Dry mucous membranes. NECK: Normal range of motion, supple without lymphadenopathy, JVD. LUNGS: Breath sounds equal, clear to auscultation bilaterally. No wheezes, and no crackles. No accessory muscle use. HEART: Regular rate and rhythm, normal S1 and S2 without murmur, rub. ABDOMEN: Soft, mildly tender in lower quadrants, not distended, normoactive bowel sounds, no guarding, no rebound, no masses. MUSCULOSKELETAL: Normal range of motion at all joints. No bony deformities or tenderness. UPPER EXTREMITIES: 2+ pulses, warm, well-perfused. No cyanosis. No clubbing. No peripheral edema. LOWER EXTREMITIES: 2+ pulses, warm, well-perfused. No calf tenderness. No peripheral edema. NEUROLOGICAL: Cranial nerves II-XII intact. 5/5 muscle strength bilaterally upper and lower extremities. PSYCHIATRIC: Cooperative. Good eye contact. Appropriate mood and affect. SKIN: Warm, dry, normal turgor, no rashes or lesions noted, normal capillary refill. Laboratory Results - last 24 hr 09/21/19 09/21/19 09/21/19 15:22 15:22 15:32 WBC 7.7 RBC 4.35 Hgb 15.4 H Hct 43.5 D MCV 100.1 H MCH 35.3 H MCHC 35.3 RDW 12.5 Plt Count 164 MPV 9.2 Absolute Neuts (auto) 4.9 Neutrophils % 63.2 Lymphocytes % 20.0 Monocytes % 15.8 H Eosinophils % 0.6 Basophils % 0.4 Nucleated RBC % 0 Sodium 131 L Potassium 3.4 L Chloride 96 L Carbon Dioxide 23 Anion Gap 13 BUN 11.1 Creatinine 0.7 Est GFR (CKD-EPI)AfAm 110.69 Est GFR (CKD-EPI)NonAf 95.50 Random Glucose 91 Lactic Acid Calcium 8.3 L Total Bilirubin 0.7 AST 76 H ALT 57 Alkaline Phosphatase 94 Total Protein 7.8 Albumin 3.1 L Lipase 441 H Urine Color Urine Appearance Urine pH Ur Specific [place] Urine Protein Urine Glucose (UA) Urine Ketones Urine Blood Urine Nitrite Urine Bilirubin Urine Urobilinogen Ur Leukocyte Esterase Urine WBC (Auto) Urine RBC (Auto) Urine Casts (Auto) U Epithel Cells (Auto) Urine Bacteria (Auto) Opiates Screen Methadone Screen Barbiturate Screen Phencyclidine Screen Ur Amphetamines Screen MDMA (Ecstasy) Screen Benzodiazepines Screen Cocaine Screen U Marijuana (THC) Screen Alcohol, Quantitative 46.0 H Influenza A (Rapid) Influenza B (Rapid) 09/21/19 09/21/19 09/21/19 15:32 15:32 17:26 WBC RBC Hgb Hct MCV MCH MCHC RDW Plt Count MPV Absolute Neuts (auto) Neutrophils % Lymphocytes % Monocytes % Eosinophils % Basophils % Nucleated RBC % Sodium Potassium Chloride Carbon Dioxide Anion Gap BUN Creatinine Est GFR (CKD-EPI)AfAm Est GFR (CKD-EPI)NonAf Random Glucose Lactic Acid 2.7 H* Calcium Total Bilirubin AST ALT Alkaline Phosphatase Total Protein Albumin Lipase Urine Color Urine Appearance Urine pH Ur Specific [place] Urine Protein Urine Glucose (UA) Urine Ketones Urine Blood Urine Nitrite Urine Bilirubin Urine Urobilinogen Ur Leukocyte Esterase Urine WBC (Auto) Urine RBC (Auto) Urine Casts (Auto) U Epithel Cells (Auto) Urine Bacteria (Auto) Opiates Screen Negative Methadone Screen Negative Barbiturate Screen Negative Phencyclidine Screen Negative Ur Amphetamines Screen Negative MDMA (Ecstasy) Screen Negative Benzodiazepines Screen Negative Cocaine Screen Negative U Marijuana (THC) Screen Negative Alcohol, Quantitative Influenza A (Rapid) Negative Influenza B (Rapid) Positive A 09/21/19 17:36 WBC RBC Hgb Hct MCV MCH MCHC RDW Plt Count MPV Absolute Neuts (auto) Neutrophils % Lymphocytes % Monocytes % Eosinophils % Basophils % Nucleated RBC % Sodium Potassium Chloride Carbon Dioxide Anion Gap BUN Creatinine Est GFR (CKD-EPI)AfAm Est GFR (CKD-EPI)NonAf Random Glucose Lactic Acid Calcium Total Bilirubin AST ALT Alkaline Phosphatase Total Protein Albumin Lipase Urine Color Yellow Urine Appearance Clear Urine pH 6.5 Ur Specific [place] 1.010 Urine Protein Negative Urine Glucose (UA) Negative Urine Ketones Trace H Urine Blood 2+ H Urine Nitrite Negative Urine Bilirubin Negative Urine Urobilinogen 1.0 Ur Leukocyte Esterase Negative Urine WBC (Auto) 1 Urine RBC (Auto) 31 Urine Casts (Auto) 1 U Epithel Cells (Auto) 3.1 Urine Bacteria (Auto) 79.5 Opiates Screen Methadone Screen Barbiturate Screen Phencyclidine Screen Ur Amphetamines Screen MDMA (Ecstasy) Screen Benzodiazepines Screen Cocaine Screen U Marijuana (THC) Screen Alcohol, Quantitative Influenza A (Rapid) Influenza B (Rapid) ASSESSMENT/PLAN: Melita Abdi is a 58 year old female with a past medical history of HIV (on medications but not taking), Hep C, anxiety, bipolar disorder, alcohol dependence admitted for flu symptoms and alcohol withdrawal Flu - Flu B positive as above - continue Tamiflu - isolation and droplet precautions - lactic acid 2.7-->1.2 - Tylenol 650mg q6h prn Alcohol Withdrawal - CIWA 9 on examination - continue to monitor for withdrawal symptoms - on Librium protocol - fall/seizure precautions - banana bag - MVI/thiamine/folic acid - addiction medicine consulted HIV - has not taken medications in several months - ID consulted for med restart - CD4 and viral load count ordered - will need to contact clinic for further investigation of treatment regimen and lab work HCV - noted she completed 3 months of treatment and has Hep C cleared - confirm with clinic regarding patient's status - liver U/S for determination of degree of fibrosis DVT PPx - on heparin 5000 units subq tid FEN - banana bag given, LR at 50cc/hr - continue to monitor electrolytes and replete as necessary, hyponatremia and hypokalemia noted and repleting - regular diet Dispo - admit to Med-surg/isolation Family Medical History Family History: Denies Visit type - Emergency Visit Emergency Visit: Yes ED Registration Date: 09/21/19 Care time: The patient presented to the Emergency Department on the above date and was hospitalized for further evaluation of their emergent condition. - New Patient This patient is new to me today: Yes Date on this admission: 09/22/19 - Critical Care Critical Care patient: No
[2019-09-22] MEDS ORDERED: ACETAMINOPHEN 325 MG TABLET (FP) PO PRN (01:12)
[2019-09-22 03:41] VITALS: BMI 30.4
[2019-09-22] MEDS: chlordiazePOXIDE HCL 25 MG CAPSULE PO SCH ×3 (05:10→21:10)
[2019-09-22] MEDS: HEPARIN NA (PORCINE) 5,000 UNITS/ML 1ML VIAL SQ SCH ×3 (06:17→21:58)
[2019-09-22] MEDS: LACTATED RINGERS SOLUTION 1,000 ML IV SCH (06:17)
[2019-09-22] MEDS ORDERED: KCL 10 MEQ IVPB 10 MEQ/100 ML INFUS.BAG IVPB SCH ×2 (08:00)
[2019-09-22 08:09] LABS: BASO % 0.4 % (0-2.0); EOS % 0.9 % (0-4.5); HEMOGLOBIN 12.9 GM/dL (10.7-15.3); MCHC 34.9 g/dl (32.0-36.0); MEAN CELL VOLUME 100.3 fl (80-96); MEAN PLT VOLUME 8.8 fl (7.5-11.1); MONO % 17.5 % (3.8-10.2); NEUT % 56.2 % (42.8-82.8); PLATELET COUNT 139 K/MM3 (134-434); RBC 3.69 M/mm3 (3.60-5.2); RDW 12.4 % (11.6-15.6); WHITE BLOOD COUNT 5.9 K/mm3 (4.0-10.0)
[2019-09-22] MEDS ORDERED: POTASSIUM CHLORIDE TABS 20 MEQ TABLET.ER (FP) PO ONE (08:30)
[2019-09-22 08:38] LABS: ALBUMIN 2.3 g/dl (3.4-5.0); BILIRUBIN,TOTAL 0.7 mg/dL (0.2-1); BLOOD UREA NITROGEN 12.5 mg/dL (7-18); CALCIUM 7.7 mg/dL (8.5-10.1); CREATININE 0.5 mg/dL (0.55-1.3); MAGNESIUM 2.4 mg/dL (1.8-2.4); PHOSPHOROUS 2.1 mg/dL (2.5-4.9); POTASSIUM 3.2 mmol/L (3.5-5.1)
[2019-09-22] MEDS: SODIUM CHLORIDE 1,000 ML IV SCH (08:41)
[2019-09-22 09:08] LABS: ANISOCYTOSIS 1+; MACROCYTOSIS 0; PLATELET ESTIMATE DECREASED; TEAR DROP CELLS 1+; TOXIC GRANULATION 2+
[2019-09-22] MEDS: MULTIVITAMINS (DAILY MVI) TABLET (FP) PO SCH (10:02)
[2019-09-22] MEDS: FOLIC ACID 1 MG TABLET (FP) PO SCH (10:02)
[2019-09-22] MEDS: THIAMINE HCL 100 MG TABLET (FP) PO SCH (10:02)
[2019-09-22] MEDS: OSELTAMIVIR PHOSPHATE 75 MG CAPSULE PO SCH ×2 (11:30→21:58)
--- NOTE | 2019-09-22 12:36 | PN ---
Teaching Attending Note Name of Resident: Craig Perrin ATTENDING PHYSICIAN STATEMENT I saw and evaluated the patient. I reviewed the resident's note and discussed the case with the resident. I agree with the resident's findings and plan as documented. Seen and examined; please see resident note for further historical information. I personally verified all aviles historical information and exam findings. Personally interpreted all imaging and diagnostics and reviewed appropriate consults. I reviewed all labs and vital signs as per resident note and EMR as documented. I agree with the above assessment and plan unless supplemented by myself in the following. She is seen and examined on the floor. We spoke with [facility], she does not qualify for inpatient admission for the flu but cannot be returned to [facility] secondary to her being influenza positive until she has had 72 hours of Tamiflu. She will be discharged back to [facility] after 72 hours of Tamiflu. She denies shortness of breath, chest pain, nausea, and states that she is improved from admission. Influenza B positive. 10 item review of systems completed and is negative aside from as discussed in the subjective data in my own/the resident documentation. VS, labs, imaging reviewed NAD, AAO, resting comfortably in bed. RRR s1/2 no mgr Normal muscle tone, moves all 5 extremities with normal apparent strength Neck is supple, trachea midline, no yazmin LN Lungs CTAB with sym expansion NT ND +BS no yazmin organomegaly CN2-12 wnl; no FND NC AT EOMI PERRLA Normal mood, appropriate behavior, euthymic affect No skin breakdown or rashes noted Assessment and plan: Patient will be allowed to continue inpatient detox with the indicated regimen while inpatient here alongside thiamine and folate supplementation. They will be treated with Tamiflu for influenza B and we will continue to monitor them for complications of the aforementioned disease. They will be discharged back to [facility] within 72 hours of initiating the Tamiflu as per [facility] policy. History of hepatitis C status post treatment completion, follow-up outpatient HIV, not on antiretrovirals, consult ID check CD4 and viral load Lactic acidosis, likely secondary to alcohol intoxication. Ethanol level positive in the emergency room. Not septic. Monitor. Obesity, BMI 30.4, breastfeeding peer counselor prior to discharge Rule out cirrhosis. Macrocytosis, check B12 and folate, likely secondary to alcohol but need to rule out any underlying nutritional deficiency Hypoalbuminemia, gives rise to concern of underlying cirrhosis, trend AST elevation, trending down from 76-62 likely due to drinking Hypocalcemia, relative, corrects with low albumin Hypokalemia corrected Hyponatremia resolved Alcohol abuse is stated Full code
[2019-09-22] MEDS: PANTOPRAZOLE 20 MG TABLET PO SCH (14:22)
--- NOTE | 2019-09-22 14:27 | EKG ---
Test Reason : Blood Pressure : / mmHG Vent. Rate : 105 BPM Atrial Rate : 105 BPM P-R Int : 132 ms QRS Dur : 078 ms QT Int : 354 ms P-R-T Axes : 073 079 066 degrees QTc Int : 467 ms POOR DATA QUALITY, INTERPRETATION MAY BE ADVERSELY AFFECTED SINUS TACHYCARDIA POSSIBLE LEFT ATRIAL ENLARGEMENT BORDERLINE ECG WHEN COMPARED WITH ECG OF 23-NOV-2018 13:57, NO SIGNIFICANT CHANGE WAS FOUND Confirmed by JIM BAILEY, NARAYAN ([id number]) on 09/22/2019 2:27:14 PM Referred By: Confirmed By:NARAYAN FERNANDEZ MD
--- NOTE | 2019-09-22 15:45 | PN ---
Physical Exam: SUBJECTIVE: Patient seen and examined at bedside. No acute events noted by nurse. Pt requesting higher dose of librium. OBJECTIVE: Vital Signs Period Temp Pulse Resp BP Sys/Love Pulse Ox Last 24 Hr 98.1 F-98.8 F 107-129 18-20 110-126/67-82 96-100 GENERAL: The patient is awake, alert, and fully oriented, in no acute distress. NECK: supple. LUNGS: Breath sounds equal, clear to auscultation bilaterally, no wheezes, no crackles, no accessory muscle use. HEART: Regular rate and rhythm, S1, S2 without murmur, rub or gallop. ABDOMEN: Soft, mildly tender epigastrium, nondistended, normoactive bowel sounds , increased guarding, no rebound, no masses. EXTREMITIES: 2+ pulses, warm, well-perfused, no edema. NEUROLOGICAL: Cranial nerves II through XII grossly intact. Normal speech, gait not observed. PSYCH: Normal mood, normal affect. SKIN: Warm, dry, normal turgor, no rashes or lesions noted Laboratory Results - last 24 hr 09/21/19 09/21/19 09/21/19 15:22 15:22 15:32 WBC 7.7 RBC 4.35 Hgb 15.4 H Hct 43.5 D MCV 100.1 H MCH 35.3 H MCHC 35.3 RDW 12.5 Plt Count 164 MPV 9.2 Absolute Neuts (auto) 4.9 Neutrophils % 63.2 Neutrophils % (Manual) Band Neutrophils % Lymphocytes % 20.0 Lymphocytes % (Manual) Monocytes % 15.8 H Monocytes % (Manual) Eosinophils % 0.6 Eosinophils % (Manual) Basophils % 0.4 Basophils % (Manual) Myelocytes % (Man) Promyelocytes % (Man) Blast Cells % (Manual) Nucleated RBC % 0 Metamyelocytes Hypochromia Toxic Granulation Platelet Estimate Platelet Comment Polychromasia Poikilocytosis Anisocytosis Microcytosis Macrocytosis Spherocytes Tear Drop Cells Sodium 131 L Potassium 3.4 L Chloride 96 L Carbon Dioxide 23 Anion Gap 13 BUN 11.1 Creatinine 0.7 Est GFR (CKD-EPI)AfAm 110.69 Est GFR (CKD-EPI)NonAf 95.50 Random Glucose 91 Lactic Acid Calcium 8.3 L Phosphorus Magnesium Total Bilirubin 0.7 AST 76 H ALT 57 Alkaline Phosphatase 94 Total Protein 7.8 Albumin 3.1 L Lipase 441 H Urine Color Urine Appearance Urine pH Ur Specific [place] Urine Protein Urine Glucose (UA) Urine Ketones Urine Blood Urine Nitrite Urine Bilirubin Urine Urobilinogen Ur Leukocyte Esterase Urine WBC (Auto) Urine RBC (Auto) Urine Casts (Auto) U Epithel Cells (Auto) Urine Bacteria (Auto) Opiates Screen Methadone Screen Barbiturate Screen Phencyclidine Screen Ur Amphetamines Screen MDMA (Ecstasy) Screen Benzodiazepines Screen Cocaine Screen U Marijuana (THC) Screen Alcohol, Quantitative 46.0 H Influenza A (Rapid) Influenza B (Rapid) 09/21/19 09/22/19 09/22/19 17:36 03:41 07:51 WBC 5.9 RBC 3.69 Hgb 12.9 Hct 37.0 MCV 100.3 H MCH 35.0 H MCHC 34.9 RDW 12.4 Plt Count 139 MPV 8.8 Absolute Neuts (auto) 3.3 Neutrophils % 56.2 Neutrophils % (Manual) 41.0 L Band Neutrophils % 10.0 Lymphocytes % 25.0 D Lymphocytes % (Manual) 10.0 Monocytes % 17.5 H Monocytes % (Manual) 18 H Eosinophils % 0.9 Eosinophils % (Manual) 0.0 Basophils % 0.4 Basophils % (Manual) 2.0 Myelocytes % (Man) 0 Promyelocytes % (Man) 0 Blast Cells % (Manual) 0 Nucleated RBC % 0 Metamyelocytes 0 Hypochromia 0 Toxic Granulation 2+ Platelet Estimate Decreased Platelet Comment Present Polychromasia 1+ Poikilocytosis 1+ Anisocytosis 1+ Microcytosis 1+ Macrocytosis 0 Spherocytes 1+ Tear Drop Cells 1+ Sodium Potassium Chloride Carbon Dioxide Anion Gap BUN Creatinine Est GFR (CKD-EPI)AfAm Est GFR (CKD-EPI)NonAf Random Glucose Lactic Acid 1.2 Calcium Phosphorus Magnesium Total Bilirubin AST ALT Alkaline Phosphatase Total Protein Albumin Lipase Urine Color Yellow Urine Appearance Clear Urine pH 6.5 Ur Specific [place] 1.010 Urine Protein Negative Urine Glucose (UA) Negative Urine Ketones Trace H Urine Blood 2+ H Urine Nitrite Negative Urine Bilirubin Negative Urine Urobilinogen 1.0 Ur Leukocyte Esterase Negative Urine WBC (Auto) 1 Urine RBC (Auto) 31 Urine Casts (Auto) 1 U Epithel Cells (Auto) 3.1 Urine Bacteria (Auto) 79.5 Opiates Screen Methadone Screen Barbiturate Screen Phencyclidine Screen Ur Amphetamines Screen MDMA (Ecstasy) Screen Benzodiazepines Screen Cocaine Screen U Marijuana (THC) Screen Alcohol, Quantitative Influenza A (Rapid) Influenza B (Rapid) Active Medications Generic Name Dose Route Start Last Admin Trade Name Freq PRN Reason Stop Dose Admin Acetaminophen 650 mg 09/22/19 01:12 Tylenol - PO Q6H PRN Fever Or Pain Chlordiazepoxide HCl 10 mg 09/24/19 00:00 Librium - PO 09/24/19 23:59 Q12H PRN Signs/symptoms of Withdrawal Chlordiazepoxide HCl 10 mg 09/21/19 19:55 Librium - PO 09/23/19 23:59 Q8H PRN Signs/symptoms of Withdrawal Chlordiazepoxide HCl 25 mg 09/21/19 21:00 09/22/19 13:08 Librium - PO 09/22/19 21:01 25 mg Q8H KALEB Administration Chlordiazepoxide HCl 15 mg 09/23/19 05:00 Librium - PO 09/23/19 21:01 Q8H KALEB Chlordiazepoxide HCl 10 mg 09/24/19 05:00 Librium - PO 09/24/19 21:01 Q8H KALEB Chlordiazepoxide HCl 10 mg 09/25/19 05:00 Librium - PO 09/25/19 05:01 ONCE ONE Folic Acid 1 mg 09/22/19 10:00 09/22/19 10:02 Folic Acid - PO 1 mg DAILY KALEB Administration Heparin Sodium (Porcine) 5,000 unit 09/21/19 22:00 09/22/19 13:08 Heparin - SQ 5,000 unit TID KALEB Administration Lactated Ringer's 1,000 mls @ 50 mls/hr 09/21/19 19:45 09/22/19 06:17 Lactated Ringers Solution IV 50 mls/hr ASDIR KALEB Administration Sodium Chloride 1,000 mls @ 75 mls/hr 09/22/19 08:15 09/22/19 08:41 Normal Saline - IV 75 mls/hr ASDIR KALEB Administration Multivitamins/Minerals/Vitamin C 1 tab 09/22/19 10:00 09/22/19 10:02 Tab-A-Vit - PO 1 tab DAILY KALEB Administration Oseltamivir Phosphate 75 mg 09/22/19 10:00 09/22/19 11:30 Tamiflu - PO 09/27/19 09:59 75 mg BID KALEB Administration Pantoprazole Sodium 20 mg 09/22/19 14:00 09/22/19 14:22 Protonix - PO 20 mg DAILY KALEB Administration Thiamine HCl 100 mg 09/22/19 10:00 09/22/19 10:02 Vitamin B1 - PO 100 mg DAILY KALEB Administration ASSESSMENT/PLAN: Melita Abdi is a 58 year old female with a past medical history of HIV (on medications but not taking), Hep C, anxiety, bipolar disorder, alcohol dependence admitted for flu symptoms and alcohol withdrawal Influenza - Influenza B positive as above - continue Tamiflu - isolation and droplet precautions, require 72 hrs of tamiflu before going back to [facility]. - lactic acid 2.7-->1.2 normalized - Tylenol 650mg q6h prn Alcohol Withdrawal - CIWA improving - continue to monitor for withdrawal symptoms - on Librium protocol - fall/seizure precautions - banana bag - MVI/thiamine/folic acid - addiction medicine consulted will likely return once flu Rx for 72hrs. Epigastric pain - lipase- 411 - on fluids already - doubt pancreatitis - could be due to esophagitis HIV - has not taken medications in several months - ID consulted for med restart - CD4 and viral load count ordered, per pt CD4 400, viral load 700, but would have to check with her [facility] in [facility] by Dr. Lora. HCV - noted she completed 3 months of treatment and has Hep C cleared - confirm with clinic regarding patient's status - liver U/S for determination of degree of fibrosis DVT PPx - on heparin 5000 units subq tid FEN - banana bag given, LR at 50cc/hr - continue to monitor electrolytes and replete as necessary, hyponatremia and hypokalemia noted and repleting - regular diet Dispo Visit type - Emergency Visit Emergency Visit: Yes ED Registration Date: 09/21/19 Care time: The patient presented to the Emergency Department on the above date and was hospitalized for further evaluation of their emergent condition. - New Patient This patient is new to me today: Yes Date on this admission: 09/22/19 - Critical Care Critical Care patient: No - Discharge Referral [facility]erred to [facility] Med P.C.: No ATTENDING PHYSICIAN STATEMENT I saw and evaluated the patient. I reviewed the resident's note and discussed the case with the resident. I agree with the resident's findings and plan as documented. SUBJECTIVE: OBJECTIVE: ASSESSMENT AND PLAN:
--- NOTE | 2019-09-22 15:53 | PN ---
Progress Note (short form) - Note Progress Note: ID consult dictated imp/reccd 58 yo female with etoh use-went to detox found to have fever and cough- influenza B positive prior hep c treated several years ago followed at [facility] in [facility]- by dr pham- has been off meds for about 3 months- prior med adherence sporadic last tcells she remembers 400- viral load 700 influenza B-tamiflu, droplet isolation HIV- has been nonadherent with her meds for months - suggest contacting her doc to verify her meds- her self reported regimen is reyataz epzicom- this is not a complete regimen suggest contacting her doctor to verify she resides in a HIV living situation in the [place] and will be returning to her doctor for f/u etoh detox thanks Problem List - Problems (1) Influenza B Code(s): J10.1 - FLU DUE TO OTH IDENT INFLUENZA VIRUS W OTH RESP MANIFEST (2) HIV (human immunodeficiency virus infection) Code(s): Z21 - ASYMPTOMATIC HUMAN IMMUNODEFICIENCY VIRUS INFECTION STATUS Qualifiers: HIV symptom status: asymptomatic Qualified Code(s): Z21 - Asymptomatic human immunodeficiency virus [HIV] infection status (3) Substance use disorder Code(s): F19.90 - OTHER PSYCHOACTIVE SUBSTANCE USE, UNSPECIFIED, UNCOMPLICATED
--- NOTE | 2019-09-22 16:38 | CONS ---
INFECTIOUS DISEASE CONSULTATION DATE OF CONSULTATION: DATE OF DICTATION: 09/22/2019 HISTORY: This is a 58-year-old woman with a history of alcohol abuse. She went to detoxification where she was found to have fever, and she was tested for influenza. She was found to have influenza B and referred to the hospital. She denies any injection drug use. She has been HIV positive for about 9 years. She belongs to an HIV living situation in the [place], she has been residing for a long time, and she is followed by Dr. Timmons at [facility] and [place] in [place]. She has been noncompliant with her medications, which she has not been on for at least a month. She reports 3 or 4 months ago her T cells were 400 with a viral load of 700. She reports her medication use is intermittent. She also reports a regimen of Epzicom, Reyataz, which is not a complete regimen. Denies taking Norvir and is requesting to resume her medications. PAST MEDICAL HISTORY: Notable for history of hepatitis C. She had been treated 2-3 years ago status post [facility]. She has a history of HIV since 2008. She has a history of depression. She had an appendectomy at age 7. She had an abscess in 2000 that became extensive. Extended to her abdomen and required hospitalization. She denies any opportunistic infections related to HIV. She has never had Pneumocystis or pneumonia or thrush. ALLERGIES: She has no known drug allergies. SOCIAL HISTORY: She smokes 1/2 pack per day. She is an active smoker, and she drinks beer. She was a former heroin user about 20 years ago but no longer uses. She has housing. MEDICATIONS: Epzicom and Reyataz but would need to be confirmed as she is missing a booster. It is unusual to be on this regimen. REVIEW OF SYSTEMS: Notable for fevers, chills, and cough. PHYSICAL EXAMINATION: General: She is awake and alert. Vital Signs: Temperature is 98.1, heart rate of 107, blood pressure 111/67, respiratory rate is 18. She is saturating 98% on room air. HEENT: She is normocephalic. Her eyes are anicteric. Neck: Supple. Lungs: Clear to auscultation. Heart: Regular rate and rhythm. Abdomen: Soft, nontender. Extremities: Without edema. DIAGNOSTIC DATA: White count is 5.9, hemoglobin 12.9, platelets are 139, BUN 12.5, creatinine 0.5. LFTs are notable for an AST of 62, ALT of 47, alkaline phosphatase 70. Urinalysis has 1 white cell. Her urine toxicology is negative, and her alcohol is 46. T cells are pending. Her flu screen is positive for influenza B. She had a chest x-ray done on admission that was normal. In summary, this is a 58-year-old woman with: 1. A history of alcohol use admitted for detoxification, found to have influenza B. Would continue Tamiflu and droplet isolation. 2. Regarding her HIV, there is really no penn in resuming her medications as she has been nonadherent with her medications for months. I would suggest containing her doctor to verify her medications. Her self-reported regimen is really not complete. She knows his name and her clinic name so this should be possible to do. As well, she is going to be returning to her doctor for follow up. There is no urgency in resuming her medications at this time. She should finish her alcohol detoxification. DIMITRI SPENCE M.D. [id number]
[2019-09-23] MEDS: chlordiazePOXIDE 5 MG CAPSULE PO SCH ×3 (04:49→21:44)
[2019-09-23] MEDS: HEPARIN NA (PORCINE) 5,000 UNITS/ML 1ML VIAL SQ SCH ×3 (06:25→21:33)
[2019-09-23] MEDS: LACTATED RINGERS SOLUTION 1,000 ML IV SCH (06:28)
[2019-09-23] MEDS: SODIUM CHLORIDE 1,000 ML IV SCH ×3 (06:29→21:32)
[2019-09-23] MEDS ORDERED: ALBUTEROL SO4 0.083% IH SOL 2.5 MG/3 ML VIAL.NEB. NEB PRN (08:34)
--- NOTE | 2019-09-23 08:34 | PN ---
Teaching Attending Note Name of Resident: Craig Perrin ATTENDING PHYSICIAN STATEMENT I saw and evaluated the patient. I reviewed the resident's note and discussed the case with the resident. I agree with the resident's findings and plan as documented. Seen and examined; please see resident note for further historical information. I personally verified all aviles historical information and exam findings. Personally interpreted all imaging and diagnostics and reviewed appropriate consults. I reviewed all labs and vital signs as per resident note and EMR as documented. I agree with the above assessment and plan unless supplemented by myself in the following. Infectious disease saw the patient states that we need to verify her regimen with her HIV doctor in the [place] as the self-reported regimen is incomplete. She can continue her HIV meds as an outpatient as she has been nonadherent for months. We have pending CD4 and viral load. Furthermore, the patient will continue on Tamiflu. Can be discharged after [facility] hours to [facility] 10 item review of systems completed and is negative aside from as discussed in the subjective data in my own/the resident documentation. VS, labs, imaging reviewed NAD, AAO, resting comfortably in bed. RRR s1/2 no mgr Normal muscle tone, moves all 5 extremities with normal apparent strength Neck is supple, trachea midline, no yazmin LN Lungs CTAB with sym expansion NT ND +BS no yazmin organomegaly CN2-12 wnl; no FND NC AT EOMI PERRLA Normal mood, appropriate behavior, euthymic affect No skin breakdown or rashes noted Assessment and plan: Patient presents for influenza A, is in the hospital as she cannot be a [facility] due to flu positive. Is here for alcohol detox. Noncompliant with HIV regimen can resume the same regimen as an outpatient. Likely discharge within 24 hours
[2019-09-23 09:12] LABS: BASO % 0.4 % (0-2.0); EOS % 1.8 % (0-4.5); HEMATOCRIT 36.7 % (32.4-45.2); HEMOGLOBIN 12.9 GM/dL (10.7-15.3); LYMPH % 35.8 % (8-40); MCH 35.6 pg (25.7-33.7); MEAN CELL VOLUME 101.7 fl (80-96); MEAN PLT VOLUME 9.6 fl (7.5-11.1); MONO % 18.2 % (3.8-10.2); NEUT % 43.8 % (42.8-82.8); PLATELET COUNT 150 K/MM3 (134-434); RBC 3.61 M/mm3 (3.60-5.2); RDW 12.3 % (11.6-15.6)
[2019-09-23] MEDS: PANTOPRAZOLE 20 MG TABLET PO SCH (09:34)
[2019-09-23] MEDS: FOLIC ACID 1 MG TABLET (FP) PO SCH (09:34)
[2019-09-23] MEDS: OSELTAMIVIR PHOSPHATE 75 MG CAPSULE PO SCH ×2 (09:34→21:34)
[2019-09-23] MEDS: THIAMINE HCL 100 MG TABLET (FP) PO SCH (09:35)
[2019-09-23] MEDS: MULTIVITAMINS (DAILY MVI) TABLET (FP) PO SCH (09:35)
[2019-09-23 09:39] LABS: ALBUMIN 2.3 g/dl (3.4-5.0); BILIRUBIN,TOTAL 0.5 mg/dL (0.2-1); BLOOD UREA NITROGEN 10.9 mg/dL (7-18); CALCIUM 7.8 mg/dL (8.5-10.1); CREATININE 0.5 mg/dL (0.55-1.3); POTASSIUM 3.4 mmol/L (3.5-5.1); TOT PROT 6.1 g/dl (6.4-8.2)
[2019-09-23] MEDS: BUDESONIDE/FORMETEROL FUMARATE 160/4.5 mcg INHALER IH SCH ×2 (10:12→21:40)
--- NOTE | 2019-09-23 13:34 | PN ---
Physical Exam: SUBJECTIVE: Patient seen and examined. Complaining of diarrhea and back pain. Afebrile overnight on librium protocol. OBJECTIVE: Vital Signs Period Temp Pulse Resp BP Sys/Love Pulse Ox Last 24 Hr 98.9 F 98 18-18 148/54 95-98 GENERAL: The patient is awake, alert, and fully oriented, in no acute distress. NECK: supple. LUNGS: Breath sounds equal, clear to auscultation bilaterally, no wheezes, no crackles, no accessory muscle use. HEART: Regular rate and rhythm, S1, S2 without murmur, rub or gallop. ABDOMEN: Soft, mildy tender radiating to back EXTREMITIES: 2+ pulses, warm, well-perfused, no edema. Laboratory Results - last 24 hr 09/23/19 09/23/19 07:15 07:15 WBC 5.0 RBC 3.61 Hgb 12.9 Hct 36.7 MCV 101.7 H MCH 35.6 H MCHC 35.0 RDW 12.3 Plt Count 150 MPV 9.6 Absolute Neuts (auto) 2.2 Neutrophils % 43.8 D Lymphocytes % 35.8 D Monocytes % 18.2 H Eosinophils % 1.8 D Basophils % 0.4 Nucleated RBC % 0 Sodium 140 Potassium 3.4 L Chloride 107 Carbon Dioxide 26 Anion Gap 7 L BUN 10.9 Creatinine 0.5 L Est GFR (CKD-EPI)AfAm 123.65 Est GFR (CKD-EPI)NonAf 106.68 Random Glucose 97 Calcium 7.8 L Total Bilirubin 0.5 AST 48 H ALT 41 Alkaline Phosphatase 71 Total Protein 6.1 L Albumin 2.3 L Active Medications Generic Name Dose Route Start Last Admin Trade Name Freq PRN Reason Stop Dose Admin Acetaminophen 650 mg 09/22/19 01:12 Tylenol - PO Q6H PRN Fever Or Pain Albuterol Sulfate 1 amp 09/23/19 08:34 Ventolin 0.083% Nebulizer Soln - NEB Q6H PRN SHORT OF BREATH/WHEEZING Budesonide/Formoterol Fumarate 2 puff 09/23/19 10:00 09/23/19 10:12 Symbicort 160/4.5mcg - IH 2 puff BID KALEB Administration Chlordiazepoxide HCl 10 mg 09/24/19 00:00 Librium - PO 09/24/19 23:59 Q12H PRN Signs/symptoms of Withdrawal Chlordiazepoxide HCl 10 mg 09/21/19 19:55 Librium - PO 09/23/19 23:59 Q8H PRN Signs/symptoms of Withdrawal Chlordiazepoxide HCl 15 mg 09/23/19 05:00 09/23/19 12:49 Librium - PO 09/23/19 21:01 15 mg Q8H KALEB Administration Chlordiazepoxide HCl 10 mg 09/24/19 05:00 Librium - PO 09/24/19 21:01 Q8H KALEB Chlordiazepoxide HCl 10 mg 09/25/19 05:00 Librium - PO 09/25/19 05:01 ONCE ONE Folic Acid 1 mg 09/22/19 10:00 09/23/19 09:34 Folic Acid - PO 1 mg DAILY KALEB Administration Heparin Sodium (Porcine) 5,000 unit 09/21/19 22:00 09/23/19 13:18 Heparin - SQ 5,000 unit TID KALEB Administration Lactated Ringer's 1,000 mls @ 50 mls/hr 09/21/19 19:45 09/23/19 06:28 Lactated Ringers Solution IV Not Given ASDIR KALEB Sodium Chloride 1,000 mls @ 75 mls/hr 09/22/19 08:15 09/23/19 09:30 Normal Saline - IV Not Given ASDIR KALEB Multivitamins/Minerals/Vitamin C 1 tab 09/22/19 10:00 09/23/19 09:35 Tab-A-Vit - PO 1 tab DAILY KALEB Administration Oseltamivir Phosphate 75 mg 09/22/19 10:00 09/23/19 09:34 Tamiflu - PO 09/27/19 09:59 75 mg BID KALEB Administration Pantoprazole Sodium 20 mg 09/22/19 14:00 09/23/19 09:34 Protonix - PO 20 mg DAILY KALEB Administration Thiamine HCl 100 mg 09/22/19 10:00 09/23/19 09:35 Vitamin B1 - PO 100 mg DAILY KALEB Administration ASSESSMENT/PLAN: Melita Abdi is a 58 year old female with a past medical history of HIV (on medications but not taking), Hep C, anxiety, bipolar disorder, alcohol dependence admitted for flu symptoms and alcohol withdrawal Influenza - Influenza B positive as above - continue Tamiflu - isolation and droplet precautions, require 72 hrs of tamiflu before going back to [facility]. - lactic acid 2.7-->1.2 normalized - Tylenol 650mg q6h prn Alcohol Withdrawal - CIWA improving - continue to monitor for withdrawal symptoms - on Librium protocol - fall/seizure precautions - banana bag - MVI/thiamine/folic acid - addiction medicine consulted will likely return once flu Rx for 72hrs. Epigastric pain - lipase- 411 - on fluids already - doubt pancreatitis - could be due to esophagitis - Liver sono- dilated GB 8-9 mm, with sludge in GB, no pericholecystic fluid seen or distention apparent, fatty infiltrated liver HIV - has not taken medications in several months - ID consulted for ? HIV med restarting - CD4 and viral load count ordered, per pt CD4 400, viral load 700 in 07/05, but would have to check with her [employer] in [facility] by Dr. Lora. - s/w Carlypso- pt hasnt been seen since june awaiting call back regarding more info on this. HCV - noted she completed 3 months of treatment and has Hep C cleared - confirm with clinic regarding patient's status - liver U/S as above DVT PPx - on heparin 5000 units subq tid FEN - banana bag given, LR at 50cc/hr - continue to monitor electrolytes and replete as necessary, hyponatremia and hypokalemia noted and repleting - regular diet Visit type - Emergency Visit Emergency Visit: Yes ED Registration Date: 09/21/19 Care time: The patient presented to the Emergency Department on the above date and was hospitalized for further evaluation of their emergent condition. - New Patient This patient is new to me today: No - Critical Care Critical Care patient: No - Discharge Referral Referred to [facility] No ATTENDING PHYSICIAN STATEMENT I saw and evaluated the patient. I reviewed the resident's note and discussed the case with the resident. I agree with the resident's findings and plan as documented. SUBJECTIVE: OBJECTIVE: ASSESSMENT AND PLAN:
[2019-09-23] MEDS ORDERED: PT OWN MED DRAWER 7, Y5N ONE (20:29)
[2019-09-23] MEDS ORDERED: chlordiazePOXIDE 5 MG CAPSULE PO ONE (21:33)
[2019-09-24] MEDS ORDERED: chlordiazePOXIDE HCL 10 MG CAPSULE PO PRN
[2019-09-24] MEDS: chlordiazePOXIDE HCL 10 MG CAPSULE PO SCH ×2 (05:02→12:47)
[2019-09-24] MEDS: HEPARIN NA (PORCINE) 5,000 UNITS/ML 1ML VIAL SQ SCH ×2 (05:02→13:33)
--- NOTE | 2019-09-24 08:56 | DS ---
Physical Exam: SUBJECTIVE: Patient seen and examined OBJECTIVE: Vital Signs Period Temp Pulse Resp BP Sys/Love Pulse Ox Last 24 Hr 97.7 F-98.9 F 98-101 18-20 139-154/54-90 95-96 PHYSICAL EXAM GENERAL: The patient is awake, alert, and fully oriented, in no acute distress. HEAD: Normal with no signs of trauma. EYES: PERRL, extraocular movements intact, sclera anicteric, conjunctiva clear. ENT: Ears normal, nares patent, oropharynx clear without exudates, moist mucous membranes. NECK: Trachea midline, full range of motion, supple. LUNGS: Breath sounds equal, clear to auscultation bilaterally, no wheezes, no crackles, no accessory muscle use. HEART: Regular rate and rhythm, S1, S2 without murmur, rub or gallop. ABDOMEN: Soft, nontender, nondistended, normoactive bowel sounds, no guarding, no rebound, no hepatosplenomegaly, no masses. EXTREMITIES: 2+ pulses, warm, well-perfused, no edema. NEUROLOGICAL: Cranial nerves II through XII grossly intact. Normal speech, gait not observed. PSYCH: Normal mood, normal affect. SKIN: Warm, dry, normal turgor, no rashes or lesions noted. LABS Laboratory Results - last 24 hr 09/23/19 09/23/19 07:15 07:15 WBC 5.0 RBC 3.61 Hgb 12.9 Hct 36.7 MCV 101.7 H MCH 35.6 H MCHC 35.0 RDW 12.3 Plt Count 150 MPV 9.6 Absolute Neuts (auto) 2.2 Neutrophils % 43.8 D Lymphocytes % 35.8 D Monocytes % 18.2 H Eosinophils % 1.8 D Basophils % 0.4 Nucleated RBC % 0 Sodium 140 Potassium 3.4 L Chloride 107 Carbon Dioxide 26 Anion Gap 7 L BUN 10.9 Creatinine 0.5 L Est GFR (CKD-EPI)AfAm 123.65 Est GFR (CKD-EPI)NonAf 106.68 Random Glucose 97 Calcium 7.8 L Total Bilirubin 0.5 AST 48 H ALT 41 Alkaline Phosphatase 71 Total Protein 6.1 L Albumin 2.3 L HOSPITAL COURSE: Date of Admission:09/21/19 Date of Discharge: 09/24/19 Was influenza A+ so sent here from [facility] for 72 hours tamiflu and to continue HIV meds. No severe WDs here. Wants to go back to [facility]. Discharging, cleared with Dr. Garcia Minutes to complete discharge: 30 Discharge Summary Problems reviewed: Yes Reason For Visit: ALCHOHOL DEPENDENCE INFLUNZA Current Active Problems Abdominal pain (Acute) Condition: Improved - Instructions Diet, Activity, Other Instructions: Resume Home Diet Resume Home activity You were transferred from [facility] to [facility] to complete 72 hours of Tamiflu with your detox care. You will be sent back to [facility] to complete the remainder of your discharge. You will complete a full course of tamiflu. Referrals: ID GROUP,OUTSIDE PROVIDER [Other] (Please followup with your outpatient ID specialist.) Anshu Currie MD [Staff Physician] - Disposition: I.P. ALCOHOL/SUBS ABUSE REHAB - Home Medications Comprehensive Discharge Medication List: Ambulatory Orders Abacavir Sulfate/Lamivudine [Epzicom -] 1 tab PO DAILY 05/19/12 Atazanavir [Reyataz -] 400 mg PO DAILY 12/01/16 Ipratropium [place] [Atrovent Hfa] 2 puff IH QID 09/22/19 This patient is new to me today: No Emergency Visit: No Critical Care patient: No - Discharge Referral Referred to [facility] No
[2019-09-24] MEDS: THIAMINE HCL 100 MG TABLET (FP) PO SCH (09:45)
[2019-09-24] MEDS: PANTOPRAZOLE 20 MG TABLET PO SCH (09:45)
[2019-09-24] MEDS: FOLIC ACID 1 MG TABLET (FP) PO SCH (09:45)
[2019-09-24] MEDS: MULTIVITAMINS (DAILY MVI) TABLET (FP) PO SCH (09:45)
[2019-09-24] MEDS: OSELTAMIVIR PHOSPHATE 75 MG CAPSULE PO SCH (09:46)
[2019-09-24] MEDS: BUDESONIDE/FORMETEROL FUMARATE 160/4.5 mcg INHALER IH SCH (09:46)
[2019-09-24 11:53] LABS: BASO % 0.4 % (0-2.0); EOS % 1.9 % (0-4.5); HEMATOCRIT 38.6 % (32.4-45.2); HEMOGLOBIN 13.4 GM/dL (10.7-15.3); LYMPH % 34.4 % (8-40); MCHC 34.6 g/dl (32.0-36.0); MEAN CELL VOLUME 101.3 fl (80-96); MEAN PLT VOLUME 9.2 fl (7.5-11.1); MONO % 14.8 % (3.8-10.2); NEUT % 48.5 % (42.8-82.8); PLATELET COUNT 196 K/MM3 (134-434); RBC 3.81 M/mm3 (3.60-5.2); RDW 12.4 % (11.6-15.6); WHITE BLOOD COUNT 5.2 K/mm3 (4.0-10.0)
[2019-09-24 12:23] LABS: ALBUMIN 2.3 g/dl (3.4-5.0); BILIRUBIN,TOTAL 0.5 mg/dL (0.2-1); BLOOD UREA NITROGEN 9.7 mg/dL (7-18); CREATININE 0.6 mg/dL (0.55-1.3); POTASSIUM 3.2 mmol/L (3.5-5.1); TOT PROT 6.3 g/dl (6.4-8.2)
[2019-09-24 13:26] VITALS: BP 123/69; PULSE 92; TEMP 98
[2019-09-25] MEDS ORDERED: chlordiazePOXIDE HCL 10 MG CAPSULE PO ONE (05:00)
[2019-10-01 10:57] LABS: WHITE BLOOD COUNT 5.9 K/mm3 (4.0-10.0)
[2019-10-01 10:58] LABS: HEMATOCRIT 39.1 % (32.4-45.2); HEMOGLOBIN 13.3 GM/dL (10.7-15.3); MCH 34.6 pg (25.7-33.7); RBC 3.84 M/mm3 (3.60-5.2)
[2019-10-01 10:59] LABS: ABSOLUTE CD 4 HELPER 341; PLATELET COUNT 124 K/MM3 (134-434); RDW 12.8 % (11.6-15.6)
[2019-10-01 11:00] LABS: % CD 4 POS. LYMPH. 21.3; % CD 8 POS. LYMPH. 68.9; ABS. CD8 SUPPRESSOR 1102; ABSOLUTE CD3 1419
[2019-10-01 11:01] LABS: %CD3 POS. LYMPH. 88.7; EOSINOPHIL(ABSOLUTE) 0.1; LYMPHS (ABSOLUTE) 1.6
[2019-10-01 11:03] LABS: ABS.CD19+ LYMPH 56
== END 2019-09-24 17:40 | disposition other institution (70) | DRG 113 ==
LOC: JER 14:24 → JERBED 18:15 → J6S 23:38
PROVIDERS: ADMIT Internal Medicine; ATTEND Internal Medicine
DX: J10.1 Influenza due to other identified influenza virus with other respiratory manifestations (principal); F10.239 Alcohol dependence with withdrawal, unspecified; E87.2 Acidosis; Z21 Asymptomatic human immunodeficiency virus [HIV] infection status; B18.2 Chronic viral hepatitis C; E87.1 Hypo-osmolality and hyponatremia; E87.6 Hypokalemia; E88.09 Other disorders of plasma-protein metabolism, not elsewhere classified; E83.51 Hypocalcemia; E87.8 Other disorders of electrolyte and fluid balance, not elsewhere classified
CPT/HCPCS: 36415; 71046-TC-FY; 76705-TC; 80053; 80307; 81003; 83605; 83690; 83735; 84100; 85025; 86355; 86359; 86360; 87086; 87536; 87804; 93005; 93010; 97116-GP; 97162-GP; 99285-25; J1644; J7030

== ENCOUNTER 2019-09-24 17:15 | Inpatient (IN) | payer OTHER ==
[2019-09-24 17:53] VITALS: BMI 30.7
--- NOTE | 2019-09-24 18:28 | HP ---
CIWA Score - Admission Criteria OASAS Guidelines: Admission for Medically Managed Detox: Requires at least one of the followin. CIWA greater than 12 2. Seizures within the past 24 hours 3. Delirium tremens within the past 24 hours 4. Hallucinations within the past 24 hours 5. Acute intervention needed for co occurring medical disorder 6. Acute intervention needed for co occurring psychiatric disorder 7. Severe withdrawal that cannot be handled at a lower level of care (continued vomiting, continued diarrhea, abnormal vital signs) requiring intravenous medication and/or fluids 8. Admitting History and Physical - Smoking History Smoking history: Current some day smoker Have you smoked in the past 12 months: Yes Aproximately how many cigarettes per day: 10 - Alcohol/Substance Use Hx Alcohol Use: Yes Admission ROS S - HPI Chief Complaint: I need to complete detox Allergies/Adverse Reactions: Allergies Allergy/AdvReac Type Severity Reaction Status Date / Time No Known Allergies Allergy Verified 09/21/19 14:34 History of Present Illness: Patient is a 58 years old woman who was admitted to [facility] on 09/21 but was sent to the ED for c/o body aches and fever of 104, she was diagnosed with the flu, treated with tamiflu and discharged back to [facility] to complete detox. Patient reports withdrawal symptoms, she denies fever, chills, cough or SOB. Exam Limitations: No Limitations - Ebola screening Have you traveled outside of the country in the last 21 days: No Have you had contact with anyone from an Ebola affected area: No Have you been sick,other than usual withdrawal symptoms: Yes (TREATED FOR FLU) Do you have a fever: No - Review of Systems Constitutional: No Symptoms Reported EENT: reports: No Symptoms Reported Respiratory: reports: Shortness of Breath Cardiac: reports: No Symptoms Reported GI: reports: Abdominal cramping : reports: No Symptoms Reported Musculoskeletal: reports: Back Pain, Muscle Pain, Muscle Weakness Integumentary: reports: Flushing Neuro: reports: Headache, Numbness, Tingling, Tremors Hematology: reports: No Symptoms Reported Psychiatric: reports: Anxious Other Systems: Reviewed and Negative Patient History - Patient Medical History Hx Anemia: No Hx Asthma: No Hx Chronic Obstructive Pulmonary Disease (COPD): No Hx Cancer: No Hx Cardiac Disorders: No Hx Congestive Heart Failure: No Hx Hypertension: No Hx Hypercholesterolemia: No Hx Pacemaker: No HX Cerebrovascular Accident: No Hx Seizures: No Hx Dementia: No Hx Diabetes: No Hx Gastrointestinal Disorders: No Hx Liver Disease: Yes (liver fibrosis, h/o hepatitis C) Hx Genitourinary Disorders: No Hx Sexually Transmitted Disorders: No Hx Renal Disease (ESRD): No Hx Thyroid Disease: No Hx Human Immunodeficiency Virus (HIV): Yes (non-compliant with medication) Hx Hepatitis C: Yes (s/p Harvoni) Hx Depression: No Hx Suicide Attempt: No Hx Bipolar Disorder: No Hx Schizophrenia: No - Patient Surgical History Past Surgical History: Yes Hx Neurologic Surgery: No Hx Cataract Extraction: No Hx Cardiac Surgery: No Hx Lung Surgery: No Hx Breast Surgery: No Hx Breast Biopsy: No Hx Abdominal Surgery: Yes (exploratory sx in 2000) Hx Appendectomy: Yes Hx Cholecystectomy: No Hx Genitourinary Surgery: No Hx Section: No Hx Orthopedic Surgery: No Hx Hysterectomy: No Other Surgical History: lower back sx in 2000 Anesthesia Reaction: No - PPD History Previous Implant?: Yes Documented Results: Positive w/proof Implanted On Prior [facility] Admission?: No Date: 12/30/17 Results: CXR on 09/21 nega PPD to be Administered?: No - Smoking Cessation Smoking history: Current every day smoker Have you smoked in the past 12 months: Yes Aproximately how many cigarettes per day: 10 Cigars Per Day: 0 Hx Chewing Tobacco Use: No Initiated information on smoking cessation: Yes 'Breaking Loose' booklet given: 09/24/19 - Substances abused Alcohol Substance route: Oral Frequency: Daily Amount used: 4 40 oz MALT LIQUOR Age of first use: 18 Date of last use: 12/20/19 Admission Physical Exam S - Vital Signs Vital Signs: Vital Signs - 24 hr 09/24/19 17:46 Temperature 97 F L Pulse Rate 80 Respiratory 16 Rate Blood Pressure 131/89 - Physical General Appearance: Yes: Within Normal Limits HEENTM: Yes: Hearing grossly Normal, Normal ENT Inspection, Normocephalic Respiratory: Yes: Chest Non-Tender, Lungs Clear, Normal Breath Sounds, No Respiratory Distress, No Accessory Muscle Use Neck: Yes: No masses,lesions,Nodules, Supple Breast: Yes: Breast Exam Deferred Cardiology: Yes: Regular Rhythm, Regular Rate Abdominal: Yes: Normal Bowel Sounds, Non Tender Genitourinary: Yes: Within Normal Limits Back: Yes: Normal Inspection Extremities: Yes: Normal Range of Motion, Tremors Neurological: Yes: tankroom tender II-XII NML intact, Fully Oriented, Alert, Normal Mood/ Affect, Normal Response Integumentary: Yes: Cold Lymphatic: Yes: Within Normal Limits - Diagnostic (1) Alcohol dependence with uncomplicated withdrawal Current Visit: Yes Status: Acute (2) HIV (human immunodeficiency virus infection) Current Visit: No Status: Chronic Qualifiers: HIV symptom status: asymptomatic Qualified Code(s): Z21 - Asymptomatic human immunodeficiency virus [HIV] infection status (3) History of hepatitis C virus infection Current Visit: No Status: Chronic (4) Nicotine dependence Current Visit: Yes Status: Acute Qualifiers: Nicotine product type: cigarettes Substance use status: uncomplicated Qualified Code(s): F17.210 - Nicotine dependence, cigarettes, uncomplicated Cleared for Admission [facility] - Detox or Rehab [facility] Level of Care: Medically Managed Detox Regimen/Protocol: Librium Claeared for Rehab Admission: No Breathalyzer - Breathalyzer Breathalyzer: 0 POC Urine test - Test device test lot number: [id number] Expiration date: 12/15/19 - Control test control: Yes Urine Drug Screen - Test Device Lot number: [id number] Expiration date: 07/16/21 - Control Is test valid?: Yes - Results Drug screen NEGATIVE: No Urine drug screen results: BZO-Benzodiazepines Inpatient Rehab Admission - Rehab Decision to Admit Inpatient rehab admission?: No
[2019-09-24] MEDS ORDERED: MELATONIN 5 MG TABLETS PO PRN (18:42)
[2019-09-24] MEDS ORDERED: ACETAMINOPHEN 325 MG TABLET (FP) PO PRN ×2 (18:42)
[2019-09-24] MEDS ORDERED: METHOCARBAMOL 500 MG TABLET PO PRN (18:42)
[2019-09-24] MEDS ORDERED: hydrOXYzine PAMOATE 25 MG CAPSULE (FP) PO PRN (18:42)
[2019-09-24] MEDS ORDERED: IBUPROFEN 400 MG TABLET (FP) PO PRN (18:42)
[2019-09-24] MEDS ORDERED: NICOTINE POLACRILEX 2 MG GUM BUC PRN (18:42)
[2019-09-24] MEDS ORDERED: MENTHOL/PHENOL 1 EACH UD MM PRN (18:42)
[2019-09-24] MEDS ORDERED: MAG HYDROX/AL HYDROX/SIMETH 30 ML UNIT-DOSE CUP PO PRN (18:42)
[2019-09-24] MEDS ORDERED: BISMUTH SUBSALICYLATE 524 MG/30 ML UD PO PRN (18:42)
[2019-09-24] MEDS ORDERED: MAGNESIUM CITRATE 300 ML BOTTLE PO PRN (18:42)
[2019-09-24] MEDS ORDERED: MAGNESIUM HYDROX 2400MG/30ML ORAL SUSPENSION 30 ML CUP PO PRN (18:42)
[2019-09-24] MEDS: NICOTINE 7 MG/24 HOURS TOPICAL PATCH TD SCH (19:54)
[2019-09-24] MEDS: THIAMINE HCL 100 MG TABLET (FP) PO SCH (22:23)
[2019-09-24] MEDS: chlordiazePOXIDE HCL 10 MG CAPSULE PO SCH (22:23)
[2019-09-25] MEDS: chlordiazePOXIDE HCL 10 MG CAPSULE PO SCH ×2 (05:20→12:37)
[2019-09-25] MEDS ORDERED: chlordiazePOXIDE HCL 10 MG CAPSULE PO SCH (06:00)
[2019-09-25] MEDS ORDERED: chlordiazePOXIDE HCL 10 MG CAPSULE PO PRN (07:18)
[2019-09-25] MEDS: PRENATAL VITAMINS W/ FOLIC ACID TABLET (FP) PO SCH (10:09)
[2019-09-25] MEDS: NICOTINE 7 MG/24 HOURS TOPICAL PATCH TD SCH (10:09)
--- NOTE | 2019-09-25 10:50 | PN ---
S CIWA - CIWA Score Nausea/Vomitin-Mild Nausea/No Vomiting Muscle Tremors: 3 Anxiety: 4-Mod. Anxious/Guarded Agitation: 1-Slight > Activity Paroxysmal Sweats: 2 Orientation: 0-Oriented Tacttile Disturbances: 0-None Auditory Disturbances: 0-None Visual Disturbances: 1-Very Mild Sensitivity Headache: 0-None Present CIWA-Ar Total Score: 12 [facility] Progress Note (SOAP) Subjective: 58 years old female admitted on 09/24/19 for alcohol withdrawal sx management treating with librium detox regiment doing ok today less tremor but feeling tired prefers to stay in bed today Objective: 09/25/19 10:50 Vital Signs Temperature 98.2 F 09/25/19 08:42 Pulse Rate 118 H 09/25/19 08:42 Respiratory Rate 18 09/25/19 08:42 Blood Pressure 133/95 09/25/19 08:42 O2 Sat by Pulse Oximetry (%) 09/25/19 11:02 see lab 09/21/19 ER report Assessment: 09/25/19 11:02 alcohol withdrawal Plan: librium regiment patient was admitted to medical unit from 09/21/19 to 09/24/19 with positive influenza b positive begin oseltamvir 75mg po bid x 5 days
[2019-09-25] MEDS ORDERED: OSELTAMIVIR PHOSPHATE 75 MG CAPSULE PO SCH (11:00)
[2019-09-25] MEDS: THIAMINE HCL 100 MG TABLET (FP) PO SCH (22:16)
[2019-09-26] MEDS ORDERED: chlordiazePOXIDE HCL 10 MG CAPSULE PO PRN
[2019-09-26] MEDS ORDERED: chlordiazePOXIDE HCL 10 MG CAPSULE PO ONE ×2 (05:00)
[2019-09-26 09:12] VITALS: BP 117/68; PULSE 105; TEMP 97.3
[2019-09-26] MEDS: PRENATAL VITAMINS W/ FOLIC ACID TABLET (FP) PO SCH (10:33)
[2019-09-26] MEDS: NICOTINE 7 MG/24 HOURS TOPICAL PATCH TD SCH (10:33)
[2019-09-26] MEDS ORDERED: chlordiazePOXIDE HCL 10 MG CAPSULE PO SCH (10:46)
--- NOTE | 2019-09-26 11:52 | DS ---
[facility] Detox Discharge Summary Admission Date: 09/24/19 Discharge Date: 09/26/19 - History Present History: Alcohol Dependence Additional Comments: 58 years old female admitted on 09/24/19 for alcohol withdrawal sx management treated with librium detox regiment patient was treated with flu from 09/21-09/24 at the [facility] patient has completed the librium regiment and tolerated well patient rejects [facility] admission Mrs Abdi prefers to return to her primary care provider for continuity of care patient is alert oriented x 3 cardiac s1s2 regular tachycardia AP 105 at this time rhythm Mrs Abdi states that she usually has rapid heart rate especially when drinking alcohol that her primary care provider is closely monitoring the condition patient had light headache spell while collecting her belonging at the property department bp 123/81 and AP 120 recommend to go to the ER for evaluation Mrs Abdi refuses to go to the ER "enough hospital" patient insists to follow up with her primary care provider at the [facility] case discussed with the vmware administrator that transportation arrangement is prudent coordinate with 3N counselor clinical nuclear powerplant supervisor for transportation arrangement received counselor 3N nuclear powerplant supervisor reports that the transportation allowance has granted patient refuses to wait for the transportation and left the chemical dependent treatment facility Pertinent Past History: patient may return to her infectious disease primary care provider for aftercare - Physical Exam Results Vital Signs: Vital Signs Temperature 97.3 F L 09/26/19 08:38 Pulse Rate 105 H 09/26/19 08:38 Respiratory Rate 18 09/26/19 08:38 Blood Pressure 117/68 09/26/19 08:38 O2 Sat by Pulse Oximetry (%) Pertinent Admission Physical Exam Findings: alcohol withdrawal lab see 09/21/19 ER report - Treatment Hospital Course: Detox Protocol Followed, Detoxed Safely, Responded well, Discharged Condition Good, Rehab Referral Accepted Patient has Accepted a Rehab Referral to: [facility] - Medication Discharge Medications: Ambulatory Orders Abacavir Sulfate/Lamivudine [Epzicom -] 1 tab PO DAILY 05/19/12 Atazanavir [Reyataz -] 400 mg PO DAILY 12/01/16 Ipratropium Mesa [Atrovent Hfa] 2 puff IH QID 09/22/19 Acetaminophen [Tylenol .Regular Strength -] 650 mg PO Q6H PRN tablet 09/24/19 Albuterol 0.083% Nebulizer Paige [Ventolin 0.083% Nebulizer Soln -] 1 amp NEB Q6H PRN amp 09/24/19 Budesonide/Formeterol Fumarate [SYMBICORT 160/4.5mcg -] 2 puff IH BID inhaler 09/24/19 Folic Acid - 1 mg PO DAILY tablet 09/24/19 Multivitamins [Multivit ([facility] Formulary)] 1 tab PO DAILY tab 09/24/19 Oseltamivir Phosphate [Tamiflu -] 75 mg PO BID capsule 09/24/19 Pantoprazole Sodium [Protonix -] 20 mg PO DAILY tablet.ec 09/24/19 Oseltamivir Phosphate [Tamiflu -] 75 mg PO BID #10 capsule 09/26/19 - Diagnosis (1) Alcohol dependence with uncomplicated withdrawal Current Visit: Yes Status: Acute (2) Nicotine dependence Current Visit: Yes Status: Acute Qualifiers: Nicotine product type: cigarettes Substance use status: in withdrawal Qualified Code(s): F17.213 - Nicotine dependence, cigarettes, with withdrawal (3) HIV (human immunodeficiency virus infection) Current Visit: Yes Status: Chronic Qualifiers: HIV symptom status: asymptomatic Qualified Code(s): Z21 - Asymptomatic human immunodeficiency virus [HIV] infection status (4) History of hepatitis C virus infection Current Visit: Yes Status: Chronic (5) History of positive PPD Current Visit: Yes Status: Resolved (6) Substance induced mood disorder Current Visit: Yes Status: Suspected (7) Tachycardia Current Visit: Yes Status: Chronic - AMA Did Patient Leave Against Medical Advice: No CIWA Score - CIWA Score Nausea/Vomitin-Mild Nausea/No Vomiting Muscle Tremors: 2 Anxiety: 3 Agitation: 1-Slight > Activity Paroxysmal Sweats: No Perspiration Orientation: 0-Oriented Tacttile Disturbances: 0-None Auditory Disturbances: 0-None Visual Disturbances: 0-None Headache: 0-None Present CIWA-Ar Total Score: 7
[2019-09-27] MEDS ORDERED: chlordiazePOXIDE HCL 10 MG CAPSULE PO ONE (10:47)
--- NOTE | 2019-09-29 15:17 | EKG ---
Test Reason : Blood Pressure : / mmHG Vent. Rate : 111 BPM Atrial Rate : 111 BPM P-R Int : 132 ms QRS Dur : 074 ms QT Int : 358 ms P-R-T Axes : 063 079 081 degrees QTc Int : 486 ms SINUS TACHYCARDIA OTHERWISE NORMAL ECG WHEN COMPARED WITH ECG OF 21-SEP-2019 15:19, NO SIGNIFICANT CHANGE WAS FOUND Confirmed by NARAYAN FERNANDEZ MD ([id number]) on 09/29/2019 3:17:08 PM Referred By: Cezar Garcia Confirmed By:NARAYAN FERNANDEZ MD
== END 2019-09-26 10:08 | disposition home or self-care (01) | DRG 775 ==
LOC: YASAS 17:15 → Y3N 19:28
PROVIDERS: ADMIT Allergy & Immunology; ATTEND Allergy & Immunology
PROC: HZ2ZZZZ Detoxification Services for Substance Abuse Treatment (ICD-10-PCS; principal; 2019-09-24)
DX: F10.230 Alcohol dependence with withdrawal, uncomplicated (principal); F17.213 Nicotine dependence, cigarettes, with withdrawal; F19.24 Other psychoactive substance dependence with psychoactive substance-induced mood disorder; Z21 Asymptomatic human immunodeficiency virus [HIV] infection status; R00.0 Tachycardia, unspecified; Z86.19 Personal history of other infectious and parasitic diseases; Z91.14 Patient's other noncompliance with medication regimen
CPT/HCPCS: 93005; 93010

== ENCOUNTER 2020-03-07 10:40 | Inpatient (IN) | payer OTHER ==
--- NOTE | 2020-03-07 11:08 | BHS.RME ---
Substance Use & Tx History - Substance Use History Alcohol Substance amount: 8 x 24 ounce beer Frequency of use: Daily Substance route: Oral Date of Last Use: 03/07/20 (First use age 18 y. No seizure, no blackouts. Admits to an eye principal programmer) Nicotine Substance amount: 10 cigs Frequency of use: Daily Substance route: Smoking Date of Last Use: 03/07/20 (First use age 18y) - Last Treatment Date of last treatment: 01/31 to 02/06/20 Treatment type: Substance Use Disorder (ROSALIE) Where was last treatment: Detox Physical/Psych/Mental Status - Behavior General Behavior: Increased activity (restlessness, agitation) Eye Contact: Normal - Cooperativeness Cooperativeness: Cooperative - Thinking Thought Processes: Tight Thought content: Future oriented - Physical Health Problems Is patient presently having any pain?: No Does patient presently have any injuries (include location): No Does patient currently have a fever: No CIWA Nausea/Vomitin Muscle Tremors: 3 Anxiety: 2 Agitation: 1-Slight > Activity Paroxysmal Sweats: 2 Orientation: 0-Oriented Tacttile Disturbances: 0-None Auditory Disturbances: 0-None Visual Disturbances: 0-None Headache: 0-None Present CIWA-Ar Total Score: 10
--- NOTE | 2020-03-07 12:26 | HP ---
CIWA Score Nausea/Vomitin Muscle Tremors: 3 Anxiety: 2 Agitation: 1-Slight > Activity Paroxysmal Sweats: 2 Orientation: 0-Oriented Tacttile Disturbances: 0-None Auditory Disturbances: 0-None Visual Disturbances: 0-None Headache: 0-None Present CIWA-Ar Total Score: 10 - Admission Criteria OASAS Guidelines: Admission for Medically Managed Detox: Requires at least one of the followin. CIWA greater than 12 2. Seizures within the past 24 hours 3. Delirium tremens within the past 24 hours 4. Hallucinations within the past 24 hours 5. Acute intervention needed for co occurring medical disorder 6. Acute intervention needed for co occurring psychiatric disorder 7. Severe withdrawal that cannot be handled at a lower level of care (continued vomiting, continued diarrhea, abnormal vital signs) requiring intravenous medication and/or fluids 8. Admitting History and Physical - Primary Care Physician PCP: Dr. Demi Diehl ([facility]) - Admission Chief Complaint: Ms. Abdi states she is here "because I am sick of being sick". She requests detox admission for alcohol use disorder. History of Present Illness: Ms. Abdi states she is here "because I am sick of being sick". She requests detox admission for alcohol use disorder. PMH: Hep C treated PSH: Abdominal abscess, appendectomy Psych: none SOC: own place Legal: none Substance Use History Alcohol Substance amount: 8 x 24 ounce beer Frequency of use: Daily Substance route: Oral Date of Last Use: 03/07/20 (First use age 18 y. No seizure, no blackouts. Admits to an eye material assembler) Nicotine Substance amount: 10 cigs Frequency of use: Daily Substance route: Smoking Date of Last Use: 03/07/20 (First use age 18y) - Last Treatment Date of last treatment: 01/31 to 02/06/20 Treatment type: Substance Use Disorder (ROSALIE) Where was last treatment: Detox History Source: Patient Limitations to Obtaining History: No Limitations - Past Medical History Hepatobiliary: Yes: Hepatitis C Infectious Disease: Yes: HIV Psych: Yes: Anxiety, Depression - Smoking History Smoking history: Current every day smoker Have you smoked in the past 12 months: Yes Aproximately how many cigarettes per day: 10 - Alcohol/Substance Use Hx Alcohol Use: Yes Number of Drinks Daily: 10 - Social History ADL: Independent Occupation: unemployed, applying for SSI History of Recent Travel: No Admission ROS BHS - HPI Allergies/Adverse Reactions: Allergies Allergy/AdvReac Type Severity Reaction Status Date / Time No Known Allergies Allergy Verified 11/09/19 13:55 Exam Limitations: No Limitations - Ebola screening Have you traveled outside of the country in the last 21 days: No Have you been sick,other than usual withdrawal symptoms: No Do you have a fever: No - Review of Systems Constitutional: Other (weight gain ~ 10 lbs) EENT: reports: No Symptoms Reported Respiratory: reports: SOB with Exertion (for one year) Cardiac: reports: No Symptoms Reported GI: reports: Nausea : reports: No Symptoms Reported Musculoskeletal: reports: Muscle Pain (notes leg pain that she attributes to leg swelling) Integumentary: reports: No Symptoms Reported Neuro: denies: No Symptoms reported, See HPI, Headache, Numbness, Paresthesia, Pre-Existing Deficit, Seizure, Tingling, Tremors, Weakness, Unsteady Gait, Ataxia, Dizziness, Other Endocrine: reports: No Symptoms Reported Hematology: reports: No Symptoms Reported Psychiatric: reports: Anxious Patient History - Patient Medical History Hx Anemia: No Hx Asthma: No Hx Chronic Obstructive Pulmonary Disease (COPD): No Hx Cancer: No Hx Cardiac Disorders: No Hx Congestive Heart Failure: No Hx Hypertension: No Hx Hypercholesterolemia: No Hx Pacemaker: No HX Cerebrovascular Accident: No Hx Seizures: No Hx Dementia: No Hx Diabetes: No Hx Gastrointestinal Disorders: No Hx Liver Disease: Yes (liver fibrosis, h/o hepatitis C treated) Hx Genitourinary Disorders: No Hx Sexually Transmitted Disorders: No Hx Renal Disease (ESRD): No Hx Thyroid Disease: No Hx Human Immunodeficiency Virus (HIV): Yes (non-compliant with medication) Hx Hepatitis C: Yes (s/p Harvoni) Hx Depression: Yes Hx Suicide Attempt: No Hx Bipolar Disorder: No Hx Schizophrenia: No - Patient Surgical History Past Surgical History: Yes Hx Neurologic Surgery: No Hx Cataract Extraction: No Hx Cardiac Surgery: No Hx Lung Surgery: No Hx Breast Surgery: No Hx Breast Biopsy: No Hx Abdominal Surgery: Yes (exploratory sx in 2000) Hx Appendectomy: Yes Hx Cholecystectomy: No Hx Genitourinary Surgery: No Hx Section: No Hx Orthopedic Surgery: No Hx Hysterectomy: No Other Surgical History: removed an abcess in lower back in 2000 Anesthesia Reaction: No - PPD History Date: 12/30/17 Results: CXR 09/21/19:nega - Smoking Cessation Smoking history: Current every day smoker Have you smoked in the past 12 months: Yes Aproximately how many cigarettes per day: 10 Cigars Per Day: 0 Hx Chewing Tobacco Use: No Initiated information on smoking cessation: Yes 'Breaking Loose' booklet given: 03/07/[address] [facility] - Physical General Appearance: Yes: Within Normal Limits, No Apparent Distress, Nourished, Appropriately Dressed HEENTM: Yes: EOMI, Hearing grossly Normal, Normocephalic, Normal Voice Respiratory: Yes: Lungs Clear, Normal Breath Sounds, No Accessory Muscle Use Neck: Yes: Within Normal Limits, Supple Cardiology: Yes: Regular Rhythm, Regular Rate, S1, S2 Abdominal: Yes: Normal Bowel Sounds, Non Tender, Protuberent Genitourinary: Yes: Other (deferred) Back: Yes: Normal Inspection Musculoskeletal: Yes: Gait Steady Extremities: Yes: Pedal Edema (pitting to mid leg) Neurological: Yes: Alert, Normal Response Integumentary: Yes: Dry, Warm - Diagnostic (1) Alcohol dependence with uncomplicated withdrawal Current Visit: Yes Status: Acute (2) Nicotine dependence Current Visit: Yes Status: Acute Qualifiers: Nicotine product type: cigarettes Substance use status: in withdrawal Qualified Code(s): F17.213 - Nicotine dependence, cigarettes, with withdrawal (3) History of hepatitis C virus infection Current Visit: No Status: Chronic Cleared for Admission [facility] - Detox or Rehab [facility] Level of Care: Medically Managed Detox Regimen/Protocol: Librium Breathalyzer - Breathalyzer Breathalyzer: 0.159 POC Urine test - Test device test lot number: [id number] Expiration date: 12/15/19 - Control test control: Yes Urine Drug Screen - Test Device Lot number: [id number] Expiration date: 04/16/21 - Control Is test valid?: Yes - Results Drug screen NEGATIVE: Yes Urine drug screen results: BZO-Benzodiazepines Inpatient Rehab Admission - Rehab Decision to Admit Inpatient rehab admission?: No
[2020-03-07] MEDS ORDERED: MAGNESIUM HYDROX 2400MG/30ML ORAL SUSPENSION 30 ML CUP PO PRN (12:30)
[2020-03-07] MEDS ORDERED: BISMUTH SUBSALICYLATE 524 MG/30 ML UD PO PRN (12:30)
[2020-03-07] MEDS ORDERED: MENTHOL/PHENOL 1 EACH UD MM PRN (12:30)
[2020-03-07] MEDS ORDERED: NICOTINE POLACRILEX 2 MG GUM BUC PRN (12:30)
[2020-03-07] MEDS ORDERED: MAG HYDROX/AL HYDROX/SIMETH 30 ML UNIT-DOSE CUP PO PRN (12:30)
[2020-03-07] MEDS ORDERED: ONDANSETRON *ODT* 4 MG TABLET SL PRN (12:30)
[2020-03-07] MEDS ORDERED: ACETAMINOPHEN 325 MG TABLET (FP) PO PRN ×2 (12:30)
[2020-03-07] MEDS ORDERED: MAGNESIUM CITRATE 300 ML BOTTLE PO PRN (12:30)
[2020-03-07 12:53] VITALS: BMI 38.2
[2020-03-07] MEDS: NICOTINE 14 MG/24 HOURS TOPICAL PATCH TD SCH (14:37)
[2020-03-07] MEDS: chlordiazePOXIDE HCL 25 MG CAPSULE PO PRN (14:39)
[2020-03-07] MEDS: hydrOXYzine PAMOATE 25 MG CAPSULE (FP) PO SCH ×3 (14:39→22:22)
[2020-03-07 16:50] LABS: HEMATOCRIT 42.2 % (32.4-45.2); HEMOGLOBIN 14.2 GM/dL (10.7-15.3); MCH 34.5 pg (25.7-33.7); MCHC 33.7 g/dl (32.0-36.0); MEAN CELL VOLUME 102.6 fl (80-96); MEAN PLT VOLUME 9.7 fl (7.5-11.1); PLATELET COUNT 128 K/MM3 (134-434); RBC 4.11 M/mm3 (3.60-5.2); RDW 12.7 % (11.6-15.6); WHITE BLOOD COUNT 3.4 K/mm3 (4.0-10.0)
[2020-03-07 17:04] LABS: ALBUMIN 3.4 g/dl (3.4-5.0); BLOOD UREA NITROGEN 8.7 mg/dL (7-18); CALCIUM 9.3 mg/dL (8.5-10.1); CREATININE 0.8 mg/dL (0.55-1.3); POTASSIUM 3.9 mmol/L (3.5-5.1); TOT PROT 9.6 g/dl (6.4-8.2)
[2020-03-07] MEDS: chlordiazePOXIDE HCL 25 MG CAPSULE PO SCH ×2 (17:11→22:21)
[2020-03-07] MEDS: THIAMINE HCL 100 MG TABLET (FP) PO SCH (22:22)
[2020-03-07] MEDS: MELATONIN 5 MG TABLETS PO SCH (22:22)
[2020-03-08] MEDS: METHOCARBAMOL 500 MG TABLET PO PRN ×2 (01:23→22:15)
[2020-03-08] MEDS: chlordiazePOXIDE HCL 25 MG CAPSULE PO PRN (01:23)
[2020-03-08] MEDS: hydrOXYzine PAMOATE 25 MG CAPSULE (FP) PO SCH ×5 (05:49→22:12)
[2020-03-08] MEDS: chlordiazePOXIDE HCL 25 MG CAPSULE PO SCH ×4 (05:50→22:12)
[2020-03-08] MEDS: PRENATAL VITAMINS W/ FOLIC ACID TABLET (FP) PO SCH (10:03)
[2020-03-08] MEDS: NICOTINE 14 MG/24 HOURS TOPICAL PATCH TD SCH (10:03)
[2020-03-08] MEDS: IBUPROFEN 400 MG TABLET (FP) PO PRN (10:06)
[2020-03-08] MEDS ORDERED: HYDROCHLOROTHIAZIDE 25 MG TABLET (FP) PO ONE (13:46)
--- NOTE | 2020-03-08 13:52 | PN ---
S CIWA - CIWA Score Nausea/Vomitin-Mild Nausea/No Vomiting Muscle Tremors: 2 Anxiety: 2 Agitation: 2 Paroxysmal Sweats: No Perspiration Orientation: 0-Oriented Tacttile Disturbances: 1-Very Mild Itch/Numbness Auditory Disturbances: 0-None Visual Disturbances: 2-Mild Sensitivity Headache: 2-Mild CIWA-Ar Total Score: 12 BHS Progress Note (SOAP) Subjective: 59 years old female admitted on 03/07/20 for alcohol withdrawal sx management treating with librium detox regiment hands and ankle edematous due to "every time I drink" reports weight gain unknown amount of pounds hands "better today" hctz 25 mg pox 1 encourage legs elevation Objective: 03/08/20 13:52 Vital Signs - 24 hr 03/07/20 03/07/20 03/08/20 16:45 20:54 06:16 Temperature 98.0 F 98.4 F 97.5 F L Pulse Rate 116 H 103 H 97 H Respiratory 18 20 18 Rate Blood Pressure 136/90 141/90 133/81 O2 Sat by Pulse 95 97 Oximetry (%) 03/08/20 03/08/20 09:00 12:42 Temperature 97.3 F L 97.3 F L Pulse Rate 111 H 97 H Respiratory 18 16 Rate Blood Pressure 129/79 113/77 O2 Sat by Pulse 97 Oximetry (%) 03/08/20 13:52 Laboratory Tests 03/07/20 03/07/20 03/07/20 12:30 12:30 12:30 WBC 3.4 L RBC 4.11 Hgb 14.2 Hct 42.2 MCV 102.6 H MCH 34.5 H MCHC 33.7 RDW 12.7 D Plt Count 128 L MPV 9.7 Sodium 140 Potassium 3.9 Chloride 107 Carbon Dioxide 24 Anion Gap 9 BUN 8.7 Creatinine 0.8 Est GFR (CKD-EPI)AfAm 93.53 Est GFR (CKD-EPI)NonAf 80.70 Random Glucose 99 Calcium 9.3 Total Bilirubin 1.0 AST 82 H ALT 42 Alkaline Phosphatase 94 Total Protein 9.6 H Albumin 3.4 Syphilis Serology Non-reactive COVID-19 (CHUCKY) 03/07/20 14:15 WBC RBC Hgb Hct MCV MCH MCHC RDW Plt Count MPV Sodium Potassium Chloride Carbon Dioxide Anion Gap BUN Creatinine Est GFR (CKD-EPI)AfAm Est GFR (CKD-EPI)NonAf Random Glucose Calcium Total Bilirubin AST ALT Alkaline Phosphatase Total Protein Albumin Syphilis Serology COVID-19 (CHUCKY) Not detected mild ast elevation due to alcohol drinking Assessment: 03/08/20 13:53 alcohol withdrawal Plan: librium regiment
[2020-03-08] MEDS: THIAMINE HCL 100 MG TABLET (FP) PO SCH (22:12)
[2020-03-08] MEDS: MELATONIN 5 MG TABLETS PO SCH (22:13)
[2020-03-09] MEDS: chlordiazePOXIDE HCL 25 MG CAPSULE PO PRN (01:08)
[2020-03-09] MEDS: IBUPROFEN 400 MG TABLET (FP) PO PRN (01:08)
[2020-03-09] MEDS: hydrOXYzine PAMOATE 25 MG CAPSULE (FP) PO SCH ×5 (05:55→22:07)
[2020-03-09] MEDS: chlordiazePOXIDE HCL 25 MG CAPSULE PO SCH ×4 (05:55→22:07)
[2020-03-09] MEDS: PRENATAL VITAMINS W/ FOLIC ACID TABLET (FP) PO SCH (10:31)
[2020-03-09] MEDS: NICOTINE 14 MG/24 HOURS TOPICAL PATCH TD SCH (10:33)
--- NOTE | 2020-03-09 10:38 | PN ---
S CIWA - CIWA Score Nausea/Vomitin-No Nausea/No Vomiting Muscle Tremors: 2 Anxiety: 1-Mildly Anxious Agitation: 0-Normal Activity Paroxysmal Sweats: No Perspiration Orientation: 0-Oriented Tacttile Disturbances: 0-None Auditory Disturbances: 0-None Visual Disturbances: 0-None Headache: 0-None Present CIWA-Ar Total Score: 3 BHS Progress Note (SOAP) Subjective: Legs better but still slightly swollen, asking for another diuretic dose tonight Objective: 03/09/20 10:33 PE Gnl: WDWN, in no distress MS: awake, alert Motor: moves well Ext: legs mildly swollen to mid leg Coord: intact Gait: steady Laboratory Tests 03/07/20 03/07/20 03/07/20 12:30 12:30 12:30 WBC 3.4 L RBC 4.11 Hgb 14.2 Hct 42.2 MCV 102.6 H MCH 34.5 H MCHC 33.7 RDW 12.7 D Plt Count 128 L MPV 9.7 Sodium 140 Potassium 3.9 Chloride 107 Carbon Dioxide 24 Anion Gap 9 BUN 8.7 Creatinine 0.8 Est GFR (CKD-EPI)AfAm 93.53 Est GFR (CKD-EPI)NonAf 80.70 Random Glucose 99 Calcium 9.3 Total Bilirubin 1.0 AST 82 H ALT 42 Alkaline Phosphatase 94 Total Protein 9.6 H Albumin 3.4 Syphilis Serology Non-reactive COVID-19 (CHUCKY) 03/07/20 14:15 WBC RBC Hgb Hct MCV MCH MCHC RDW Plt Count MPV Sodium Potassium Chloride Carbon Dioxide Anion Gap BUN Creatinine Est GFR (CKD-EPI)AfAm Est GFR (CKD-EPI)NonAf Random Glucose Calcium Total Bilirubin AST ALT Alkaline Phosphatase Total Protein Albumin Syphilis Serology COVID-19 (CHUCKY) Not detected Home Medication List Medication Instructions Recorded Confirmed Type NK [No Known Home Medication] 03/07/20 03/07/20 History Active Medications Generic Name Dose Route Start Last Admin Trade Name Freq PRN Reason Stop Dose Admin Acetaminophen 650 mg 03/07/20 12:30 03/08/20 01:23 Tylenol - PO 650 mg Q6H PRN Administration PAIN LEVEL 4 - 6 Acetaminophen 650 mg 03/07/20 12:30 Tylenol - PO Q6H PRN FEVER Al Hydroxide/Mg Hydroxide 30 ml 03/07/20 12:30 Mylanta Oral Suspension - PO Q6H PRN DYSPEPSIA Bismuth Subsalicylate 524 mg 03/07/20 12:30 Pepto-Bismol - PO Q1H PRN DIARRHEA Chlordiazepoxide HCl 25 mg 03/09/20 05:00 03/09/20 10:32 Librium - PO 03/09/20 23:01 25 mg [id number] KALEB Administration Chlordiazepoxide HCl 25 mg 03/07/20 12:30 03/09/20 01:08 Librium - PO 03/09/20 23:59 25 mg Q4H PRN Administration WITHDRAWAL(CONT SUBST) Chlordiazepoxide HCl 10 mg 03/10/20 05:00 Librium - PO 03/10/20 23:01 [id number] KALEB Chlordiazepoxide HCl 10 mg 03/11/20 05:00 Librium - PO 03/11/20 17:01 Q12H KALEB Chlordiazepoxide HCl 10 mg 03/10/20 00:00 Librium - PO 03/11/20 00:00 Q4H PRN WITHDRAWAL(CONT SUBST) Chlordiazepoxide HCl 10 mg 03/12/20 05:00 Librium - PO 03/12/20 05:01 ONCE@0500 ONE Eucalyptus/Menthol/Phenol/Sorbitol 1 each 03/07/20 12:30 Cepastat Lozenge - MM 03/13/20 12:30 Q4H PRN SORE THROAT Hydroxyzine Pamoate 25 mg 03/07/20 14:00 03/09/20 10:31 Vistaril - PO 03/13/20 12:30 25 mg Q4HWA KALEB Administration Ibuprofen 400 mg 03/07/20 12:30 03/09/20 01:08 Motrin - PO 400 mg Q6H PRN Administration PAIN LEVEL 1 - 3 Magnesium Citrate 300 ml 03/07/20 12:30 Citroma - PO Q48H PRN CONSTIPATION Magnesium Hydroxide 30 ml 03/07/20 12:30 Milk Of Magnesia - PO PRN PRN CONSTIPATION Melatonin 5 mg 03/07/20 22:00 03/08/20 22:13 Melatonin PO Not Given HS KLAEB Methocarbamol 500 mg 03/07/20 12:30 03/08/20 22:15 Robaxin - PO 03/13/20 12:30 500 mg Q6H PRN Administration MUSCLE SPASMS Nicotine 14 mg 03/07/20 12:45 03/09/20 10:33 Nicoderm Patch - TD Not Given DAILY KALEB Nicotine Polacrilex 2 mg 03/07/20 12:30 Nicorette Gum - BUC Q2H PRN NICOTINE REPLACEMENT RX Ondansetron HCl 4 mg 03/07/20 12:30 Zofran Odt - SL 03/13/20 12:31 Q8H PRN Nausea/Vomiting Multivit/Folic Acid/Iron 1 tab 03/08/20 10:00 03/09/20 10:31 Vitamins (Sjr) - PO Not Given DAILY KALEB Thiamine HCl 100 mg 03/07/20 22:00 03/08/20 22:12 Vitamin B1 - PO 100 mg HS KALEB Administration Assessment: 03/09/20 10:38 1. Alcohol use disorder Plan: 1. Librium protocol, projected completion on 03/12 2. Mild leg edema, improving, will give HCTZ 25 mg x one tonight. 3. BMP in am
[2020-03-09] MEDS ORDERED: HYDROCHLOROTHIAZIDE 25 MG TABLET (FP) PO ONE (14:00)
[2020-03-09] MEDS: THIAMINE HCL 100 MG TABLET (FP) PO SCH (22:07)
[2020-03-09] MEDS: METHOCARBAMOL 500 MG TABLET PO PRN (22:07)
[2020-03-09] MEDS: MELATONIN 5 MG TABLETS PO SCH (22:07)
[2020-03-10] MEDS ORDERED: chlordiazePOXIDE HCL 10 MG CAPSULE PO PRN
[2020-03-10] MEDS: chlordiazePOXIDE HCL 10 MG CAPSULE PO SCH ×4 (06:02→22:19)
[2020-03-10] MEDS: hydrOXYzine PAMOATE 25 MG CAPSULE (FP) PO SCH ×5 (06:02→22:19)
[2020-03-10] MEDS: PRENATAL VITAMINS W/ FOLIC ACID TABLET (FP) PO SCH (10:23)
[2020-03-10] MEDS: NICOTINE 14 MG/24 HOURS TOPICAL PATCH TD SCH (10:24)
--- NOTE | 2020-03-10 16:33 | PN ---
[facility] CIWA - CIWA Score Nausea/Vomitin-No Nausea/No Vomiting Muscle Tremors: None Anxiety: 2 Agitation: 0-Normal Activity Paroxysmal Sweats: 2 Orientation: 0-Oriented Tacttile Disturbances: 2-Mild Itch/Numbness/Burn Auditory Disturbances: 0-None Visual Disturbances: 0-None Headache: 0-None Present CIWA-Ar Total Score: 6 BHS Progress Note (SOAP) Subjective: Sweating, Fatigue. Objective: Patient A & O X 3, Observed Ambulating on Detox Unit Unassisted. In No Acute Distress. Swelling in bilateral lower extremities noted. Patient reports reduction in swelling over last couple of days. 03/10/20 16:34 Vital Signs Temperature 97.3 F L 03/10/20 14:13 Pulse Rate 87 03/10/20 14:13 Respiratory Rate 18 03/10/20 14:13 Blood Pressure 134/80 03/10/20 14:13 O2 Sat by Pulse Oximetry (%) 100 03/10/20 14:13 Laboratory Tests 03/07/20 03/07/20 03/07/20 12:30 12:30 12:30 WBC 3.4 L RBC 4.11 Hgb 14.2 Hct 42.2 MCV 102.6 H MCH 34.5 H MCHC 33.7 RDW 12.7 D Plt Count 128 L MPV 9.7 Sodium 140 Potassium 3.9 Chloride 107 Carbon Dioxide 24 Anion Gap 9 BUN 8.7 Creatinine 0.8 Est GFR (CKD-EPI)AfAm 93.53 Est GFR (CKD-EPI)NonAf 80.70 Random Glucose 99 Calcium 9.3 Total Bilirubin 1.0 AST 82 H ALT 42 Alkaline Phosphatase 94 Total Protein 9.6 H Albumin 3.4 Syphilis Serology Non-reactive COVID-19 (CHUCKY) 03/07/20 14:15 WBC RBC Hgb Hct MCV MCH MCHC RDW Plt Count MPV Sodium Potassium Chloride Carbon Dioxide Anion Gap BUN Creatinine Est GFR (CKD-EPI)AfAm Est GFR (CKD-EPI)NonAf Random Glucose Calcium Total Bilirubin AST ALT Alkaline Phosphatase Total Protein Albumin Syphilis Serology COVID-19 (CHUCKY) Not detected Lab Results noted. 03/10/20 16:35 Assessment: 03/10/20 16:34 WITHDRAWAL SYMPTOMS. LEUKOPENIA. THROMBOCYTOPENIA. ELEVATED AST LEVEL. 03/10/20 16:35 Plan: Continue Detox. Patient advised continue to elevated feet while lying in bed as often as possible for time being in order to help relieve swelling in bilateral lower extremities and to follow-up with MOTH EXTERMINATOR after discharge from detox for further evaluation of swelling. Patient verbalized understanding of recommendation.
[2020-03-10] MEDS: THIAMINE HCL 100 MG TABLET (FP) PO SCH (22:19)
[2020-03-10] MEDS: MELATONIN 5 MG TABLETS PO SCH (22:20)
[2020-03-11] MEDS: hydrOXYzine PAMOATE 25 MG CAPSULE (FP) PO SCH ×5 (06:20→21:13)
[2020-03-11] MEDS: chlordiazePOXIDE HCL 10 MG CAPSULE PO SCH ×2 (06:21→17:29)
--- NOTE | 2020-03-11 10:11 | PN ---
S CIWA - CIWA Score Nausea/Vomitin-No Nausea/No Vomiting Muscle Tremors: 1-None Visible, but [place] Anxiety: 1-Mildly Anxious Agitation: 0-Normal Activity Paroxysmal Sweats: No Perspiration Orientation: 0-Oriented Tacttile Disturbances: 0-None Auditory Disturbances: 0-None Visual Disturbances: 1-Very Mild Sensitivity Headache: 0-None Present CIWA-Ar Total Score: 3 BHS Progress Note (SOAP) Subjective: 59 years old female admitted on 03/07/20 for alcohol withdrawal sx management treating with librium detox regiment feeling better today sitting on the edge of the bed eating breakfast speech clearly mild swelling of both ankles encourage elevation of the legs breathing ease and even o2sat 99% Objective: 03/11/20 10:16 Vital Signs - 24 hr 03/10/20 03/10/20 03/11/20 14:13 20:47 07:02 Temperature 97.3 F L 97.1 F L 97.2 F L Pulse Rate 87 104 H 85 Respiratory 18 18 18 Rate Blood Pressure 134/80 107/73 101/62 O2 Sat by Pulse 100 95 99 Oximetry (%) 03/11/20 08:42 Temperature 97.3 F L Pulse Rate 108 H Respiratory 20 Rate Blood Pressure 113/81 O2 Sat by Pulse Oximetry (%) 03/11/20 10:16 Laboratory Tests 03/07/20 03/07/20 03/07/20 12:30 12:30 12:30 WBC 3.4 L RBC 4.11 Hgb 14.2 Hct 42.2 MCV 102.6 H MCH 34.5 H MCHC 33.7 RDW 12.7 D Plt Count 128 L MPV 9.7 Sodium 140 Potassium 3.9 Chloride 107 Carbon Dioxide 24 Anion Gap 9 BUN 8.7 Creatinine 0.8 Est GFR (CKD-EPI)AfAm 93.53 Est GFR (CKD-EPI)NonAf 80.70 Random Glucose 99 Calcium 9.3 Total Bilirubin 1.0 AST 82 H ALT 42 Alkaline Phosphatase 94 Total Protein 9.6 H Albumin 3.4 Syphilis Serology Non-reactive COVID-19 (CHUCKY) 03/07/20 14:15 WBC RBC Hgb Hct MCV MCH MCHC RDW Plt Count MPV Sodium Potassium Chloride Carbon Dioxide Anion Gap BUN Creatinine Est GFR (CKD-EPI)AfAm Est GFR (CKD-EPI)NonAf Random Glucose Calcium Total Bilirubin AST ALT Alkaline Phosphatase Total Protein Albumin Syphilis Serology COVID-19 (CHUCKY) Not detected lab noted Assessment: 03/11/20 10:16 alcohol withdrawal Plan: librium regiment
[2020-03-11] MEDS: NICOTINE 14 MG/24 HOURS TOPICAL PATCH TD SCH (10:21)
[2020-03-11] MEDS: PRENATAL VITAMINS W/ FOLIC ACID TABLET (FP) PO SCH (10:21)
[2020-03-11] MEDS: IBUPROFEN 400 MG TABLET (FP) PO PRN (17:29)
[2020-03-11] MEDS: THIAMINE HCL 100 MG TABLET (FP) PO SCH (21:12)
[2020-03-11] MEDS: MELATONIN 5 MG TABLETS PO SCH (21:13)
[2020-03-12] MEDS ORDERED: chlordiazePOXIDE HCL 10 MG CAPSULE PO ONE (05:00)
[2020-03-12] MEDS: hydrOXYzine PAMOATE 25 MG CAPSULE (FP) PO SCH ×2 (06:04→09:43)
[2020-03-12] MEDS: IBUPROFEN 400 MG TABLET (FP) PO PRN (06:05)
--- NOTE | 2020-03-12 08:56 | DS ---
[facility] Detox Discharge Summary Admission Date: 03/07/20 Discharge Date: 03/12/20 - History Present History: Alcohol Dependence Additional Comments: 59 years old female admitted on 03/07/20 for alcohol withdrawal sx management treated with librium detox regiment ms liu has completed the librium regiment and is tolerated well alert oriented x 3 speech clearly coherently ambulating steady gaits Vital Signs - 24 hr 03/11/20 03/11/20 03/11/20 12:40 16:54 20:31 Temperature 97.6 F 97.3 F L 97.3 F L Pulse Rate 67 103 H 88 Respiratory 16 18 18 Rate Blood Pressure 98/64 109/75 111/74 O2 Sat by Pulse 98 99 Oximetry (%) 03/12/20 03/12/20 05:55 08:44 Temperature 97.5 F L 97.3 F L Pulse Rate 93 H 105 H Respiratory 18 20 Rate Blood Pressure 100/71 112/61 O2 Sat by Pulse 99 Oximetry (%) cardiac s1s2 regular rhythm mild sinus tachycardia denies chest pain no dizziness respiratory clear lung sounds bilaterally on auscultation extremities full range of motion Pertinent Past History: time for discharge 33 minutes transportation from detox to home arranged - Physical Exam Results Vital Signs: Vital Signs Temperature 97.5 F L 03/12/20 05:55 Pulse Rate 93 H 03/12/20 05:55 Respiratory Rate 18 03/12/20 05:55 Blood Pressure 100/71 03/12/20 05:55 O2 Sat by Pulse Oximetry (%) 99 03/12/20 05:55 Pertinent Admission Physical Exam Findings: alcohol withdrawal Laboratory Tests 03/07/20 03/07/20 03/07/20 12:30 12:30 12:30 WBC 3.4 L RBC 4.11 Hgb 14.2 Hct 42.2 MCV 102.6 H MCH 34.5 H MCHC 33.7 RDW 12.7 D Plt Count 128 L MPV 9.7 Sodium 140 Potassium 3.9 Chloride 107 Carbon Dioxide 24 Anion Gap 9 BUN 8.7 Creatinine 0.8 Est GFR (CKD-EPI)AfAm 93.53 Est GFR (CKD-EPI)NonAf 80.70 Random Glucose 99 Calcium 9.3 Total Bilirubin 1.0 AST 82 H ALT 42 Alkaline Phosphatase 94 Total Protein 9.6 H Albumin 3.4 Syphilis Serology Non-reactive COVID-19 ([facility]) 03/07/20 14:15 WBC RBC Hgb Hct MCV MCH MCHC RDW Plt Count MPV Sodium Potassium Chloride Carbon Dioxide Anion Gap BUN Creatinine Est GFR (CKD-EPI)AfAm Est GFR (CKD-EPI)NonAf Random Glucose Calcium Total Bilirubin AST ALT Alkaline Phosphatase Total Protein Albumin Syphilis Serology COVID-19 ([facility]) Not detected lab noted - Treatment Hospital Course: Detox Protocol Followed, Detoxed Safely, Responded well, Discharged Condition Good, Rehab Referral Accepted Patient has Accepted a Rehab Referral to: [facility] - Medication Discharge Medications: Ambulatory Orders NK [No Known Home Medication] 03/07/20 - Diagnosis (1) Alcohol dependence with uncomplicated withdrawal Current Visit: Yes Status: Acute (2) Nicotine dependence Current Visit: Yes Status: Acute Qualifiers: Nicotine product type: cigarettes Substance use status: in withdrawal Qualified Code(s): F17.213 - Nicotine dependence, cigarettes, with withdrawal (3) HIV (human immunodeficiency virus infection) Current Visit: Yes Status: Chronic Qualifiers: HIV symptom status: asymptomatic Qualified Code(s): Z21 - Asymptomatic human immunodeficiency virus [HIV] infection status (4) Substance induced mood disorder Current Visit: No Status: Suspected (5) History of positive PPD Current Visit: Yes Status: Resolved - AMA Did Patient Leave Against Medical Advice: No CIWA Score - CIWA Score Nausea/Vomitin-No Nausea/No Vomiting Muscle Tremors: None Anxiety: 1-Mildly Anxious Agitation: 0-Normal Activity Paroxysmal Sweats: No Perspiration Orientation: 0-Oriented Tacttile Disturbances: 0-None Auditory Disturbances: 0-None Visual Disturbances: 0-None Headache: 0-None Present CIWA-Ar Total Score: 1
[2020-03-12 09:15] VITALS: BP 112/61; PULSE 105; TEMP 97.3
[2020-03-12] MEDS: PRENATAL VITAMINS W/ FOLIC ACID TABLET (FP) PO SCH ×2 (09:43→09:45)
[2020-03-12] MEDS: NICOTINE 14 MG/24 HOURS TOPICAL PATCH TD SCH (09:44)
== END 2020-03-12 10:36 | disposition home or self-care (01) | DRG 775 ==
LOC: YASAS 10:40 → Y3N 13:26
PROVIDERS: ADMIT Allergy & Immunology; ATTEND Allergy & Immunology
PROC: HZ2ZZZZ Detoxification Services for Substance Abuse Treatment (ICD-10-PCS; principal; 2020-03-07)
DX: F10.230 Alcohol dependence with withdrawal, uncomplicated (principal); F17.213 Nicotine dependence, cigarettes, with withdrawal; F19.24 Other psychoactive substance dependence with psychoactive substance-induced mood disorder; F41.9 Anxiety disorder, unspecified; F32.9 Major depressive disorder, single episode, unspecified; Z21 Asymptomatic human immunodeficiency virus [HIV] infection status; D69.6 Thrombocytopenia, unspecified; D72.819 Decreased white blood cell count, unspecified; R74.0 Nonspecific elevation of levels of transaminase and lactic acid dehydrogenase [LDH]; R60.0 Localized edema; R76.11 Nonspecific reaction to tuberculin skin test without active tuberculosis; E66.9 Obesity, unspecified; Z68.38 Body mass index [BMI] 38.0-38.9, adult
CPT/HCPCS: 36415; 80053; 85027; 86780; U0003

== ENCOUNTER 2021-05-24 15:41 | Inpatient (IN) | payer OTHER ==
[2021-05-24 17:03] VITALS: BMI 35.3
[2021-05-24] MEDS ORDERED: MENTHOL/PHENOL 1 EACH UD MM PRN (18:05)
[2021-05-24] MEDS ORDERED: MAG HYDROX/AL HYDROX/SIMETH 30 ML UNIT-DOSE CUP PO PRN (18:05)
[2021-05-24] MEDS ORDERED: NICOTINE 14 MG/24 HOURS TOPICAL PATCH TD PRN (18:05)
[2021-05-24] MEDS ORDERED: BISMUTH SUBSALICYLATE 524 MG/30 ML PO PRN (18:05)
[2021-05-24] MEDS ORDERED: IBUPROFEN 400 MG TABLET (FP) PO PRN (18:05)
[2021-05-24] MEDS ORDERED: ONDANSETRON *ODT* 4 MG TABLET SL PRN (18:05)
[2021-05-24] MEDS ORDERED: MAGNESIUM CITRATE 300 ML BOTTLE PO PRN (18:05)
[2021-05-24] MEDS ORDERED: NICOTINE 10 MG CARTRIDGE (INHALER) IH PRN (18:05)
[2021-05-24] MEDS ORDERED: MAGNESIUM HYDROX 2400MG/30ML ORAL SUSPENSION 30 ML CUP PO PRN (18:05)
[2021-05-24] MEDS ORDERED: ACETAMINOPHEN 325 MG TABLET (FP) PO PRN ×2 (18:05)
[2021-05-24] MEDS ORDERED: LORazepam 1 MG TABLET PO PRN (18:05)
[2021-05-24] MEDS ORDERED: ONDANSETRON *ODT* 4 MG TABLET ONE (18:15)
[2021-05-24] MEDS: PRENATAL VITAMINS W/ FOLIC ACID TABLET (FP) PO SCH (19:14)
[2021-05-24] MEDS: LORazepam 2 MG TABLET PO SCH ×2 (19:14→22:44)
[2021-05-24] MEDS: hydrOXYzine PAMOATE 25 MG CAPSULE (FP) PO SCH (22:44)
[2021-05-24] MEDS: THIAMINE HCL 100 MG TABLET (FP) PO SCH (22:44)
[2021-05-24] MEDS: MELATONIN 5 MG TABLETS PO SCH (22:44)
[2021-05-25] MEDS: hydrOXYzine PAMOATE 25 MG CAPSULE (FP) PO SCH ×5 (05:52→22:32)
[2021-05-25] MEDS: LORazepam 2 MG TABLET PO SCH ×4 (05:52→22:32)
[2021-05-25] MEDS: PRENATAL VITAMINS W/ FOLIC ACID TABLET (FP) PO SCH (10:48)
[2021-05-25] MEDS: THIAMINE HCL 100 MG TABLET (FP) PO SCH (22:32)
[2021-05-25] MEDS: MELATONIN 5 MG TABLETS PO SCH (22:33)
[2021-05-26] MEDS: LORazepam 1 MG TABLET PO SCH ×4 (05:58→22:29)
[2021-05-26] MEDS: hydrOXYzine PAMOATE 25 MG CAPSULE (FP) PO SCH (05:58)
[2021-05-26] MEDS: PRENATAL VITAMINS W/ FOLIC ACID TABLET (FP) PO SCH (10:21)
[2021-05-26 13:16] LABS: BASO % 0.7 % (0-2.0); EOS % 2.7 % (0-4.5); HEMOGLOBIN 11.9 GM/dL (10.7-15.3); LYMPH % 42.6 % (8-40); MCH 37.6 pg (25.7-33.7); MCHC 34.9 g/dl (32.0-36.0); MEAN CELL VOLUME 107.9 fl (80-96); MEAN PLT VOLUME 9.5 fl (7.5-11.1); MONO % 10.9 % (3.8-10.2); NEUT % 43.1 % (42.8-82.8); PLATELET COUNT 109 10^3/uL (134-434); RBC 3.15 M/mm3 (3.60-5.2); RDW 12.5 % (11.6-15.6); WHITE BLOOD COUNT 3.4 K/mm3 (4.0-10.0)
[2021-05-26 13:24] LABS: CALCIUM 7.9 mg/dL (8.5-10.1)
[2021-05-26 13:25] LABS: ALBUMIN 1.8 g/dl (3.4-5.0); BLOOD UREA NITROGEN 15.2 mg/dL (7-18)
[2021-05-26 13:28] LABS: CREATININE 0.8 mg/dL (0.55-1.3)
[2021-05-26 13:29] LABS: BILIRUBIN,TOTAL 1.7 mg/dL (0.2-1)
[2021-05-26 13:30] LABS: TOT PROT 9.3 g/dl (6.4-8.2)
[2021-05-26 14:09] LABS: ANISOCYTOSIS 0; MACROCYTOSIS 0; PLATELET ESTIMATE DECREASED
[2021-05-26] MEDS: hydrOXYzine PAMOATE 25 MG CAPSULE (FP) PO PRN ×2 (17:45→22:29)
[2021-05-26] MEDS: THIAMINE HCL 100 MG TABLET (FP) PO SCH (22:28)
[2021-05-26] MEDS: MELATONIN 5 MG TABLETS PO SCH (22:28)
[2021-05-26] MEDS: METHOCARBAMOL 500 MG TABLET PO PRN (22:29)
[2021-05-27] MEDS ORDERED: LORazepam 0.5 MG TABLET PO PRN
[2021-05-27] MEDS: LORazepam 0.5 MG TABLET PO SCH ×4 (06:15→22:11)
[2021-05-27] MEDS: PRENATAL VITAMINS W/ FOLIC ACID TABLET (FP) PO SCH (10:23)
[2021-05-27] MEDS: hydrOXYzine PAMOATE 25 MG CAPSULE (FP) PO PRN ×2 (17:34→22:12)
[2021-05-27] MEDS: MELATONIN 5 MG TABLETS PO SCH (22:11)
[2021-05-27] MEDS: THIAMINE HCL 100 MG TABLET (FP) PO SCH (22:11)
[2021-05-27] MEDS: METHOCARBAMOL 500 MG TABLET PO PRN (22:12)
[2021-05-28] MEDS ORDERED: LORazepam 0.5 MG TABLET PO ONE (05:00)
[2021-05-28] MEDS: PRENATAL VITAMINS W/ FOLIC ACID TABLET (FP) PO SCH (10:20)
[2021-05-28 12:42] VITALS: BP 122/76; PULSE 84; TEMP 98.1
== END 2021-05-28 12:46 | disposition other institution (70) | DRG 775 ==
LOC: YASAS 15:41 → Y3N 21:10
PROVIDERS: ADMIT Allergy & Immunology; ATTEND Allergy & Immunology
PROC: HZ2ZZZZ Detoxification Services for Substance Abuse Treatment (ICD-10-PCS; principal; 2021-05-24)
DX: F10.230 Alcohol dependence with withdrawal, uncomplicated (principal); F17.210 Nicotine dependence, cigarettes, uncomplicated; F19.24 Other psychoactive substance dependence with psychoactive substance-induced mood disorder; F32.9 Major depressive disorder, single episode, unspecified; F41.9 Anxiety disorder, unspecified; Z21 Asymptomatic human immunodeficiency virus [HIV] infection status; Z86.11 Personal history of tuberculosis; Z86.19 Personal history of other infectious and parasitic diseases; Z98.890 Other specified postprocedural states
CPT/HCPCS: 36415; 71046-TC-FY; 80053; 85025; 86780; C9803; Q0162; U0003; U0005

== ENCOUNTER 2021-05-28 13:01 | Inpatient (IN) | payer OTHER ==
[2021-05-28] MEDS ORDERED: NICOTINE 10 MG CARTRIDGE (INHALER) IH PRN (14:46)
[2021-05-28] MEDS ORDERED: MAG HYDROX/AL HYDROX/SIMETH 30 ML UNIT-DOSE CUP PO PRN (14:46)
[2021-05-28] MEDS ORDERED: MAGNESIUM HYDROX 2400MG/30ML ORAL SUSPENSION 30 ML CUP PO PRN (14:46)
[2021-05-28] MEDS ORDERED: ACETAMINOPHEN 325 MG TABLET (FP) PO PRN (14:46)
[2021-05-28] MEDS ORDERED: IBUPROFEN 400 MG TABLET (FP) PO PRN (14:46)
[2021-05-28] MEDS ORDERED: LOPERAMIDE HCL 2 MG CAPSULE PO PRN (14:46)
[2021-05-28] MEDS ORDERED: MAGNESIUM CITRATE 300 ML BOTTLE PO PRN (14:46)
[2021-05-28] MEDS: THIAMINE HCL 100 MG TABLET (FP) PO SCH (21:37)
[2021-05-28] MEDS: MELATONIN 5 MG TABLETS PO SCH (21:37)
[2021-05-29] MEDS: PRENATAL VITAMINS W/ FOLIC ACID TABLET (FP) PO SCH (09:52)
[2021-05-29] MEDS: NICOTINE 7 MG/24 HOURS TOPICAL PATCH TD SCH (09:52)
[2021-05-29] MEDS: BICTEGRAV/EMTRICIT/TENOFOV (BIKTARVY) 50-200-25 MG TABLET PO SCH (11:29)
[2021-05-29] MEDS: HYDROCHLOROTHIAZIDE 25 MG TABLET (FP) PO SCH (11:29)
[2021-05-29] MEDS: MELATONIN 5 MG TABLETS PO SCH (21:16)
[2021-05-29] MEDS: THIAMINE HCL 100 MG TABLET (FP) PO SCH (21:17)
[2021-05-30] MEDS: HYDROCHLOROTHIAZIDE 25 MG TABLET (FP) PO SCH (09:57)
[2021-05-30] MEDS: BICTEGRAV/EMTRICIT/TENOFOV (BIKTARVY) 50-200-25 MG TABLET PO SCH (09:57)
[2021-05-30] MEDS: PRENATAL VITAMINS W/ FOLIC ACID TABLET (FP) PO SCH (09:58)
[2021-05-30] MEDS: NICOTINE 7 MG/24 HOURS TOPICAL PATCH TD SCH (09:58)
[2021-05-30] MEDS: THIAMINE HCL 100 MG TABLET (FP) PO SCH (21:19)
[2021-05-30] MEDS: hydrOXYzine PAMOATE 25 MG CAPSULE (FP) PO PRN (21:19)
[2021-05-30] MEDS: MELATONIN 5 MG TABLETS PO SCH (21:19)
[2021-05-31] MEDS: BICTEGRAV/EMTRICIT/TENOFOV (BIKTARVY) 50-200-25 MG TABLET PO SCH (08:48)
[2021-05-31] MEDS: PRENATAL VITAMINS W/ FOLIC ACID TABLET (FP) PO SCH (09:28)
[2021-05-31] MEDS: hydrOXYzine PAMOATE 25 MG CAPSULE (FP) PO PRN (09:28)
[2021-05-31] MEDS: NICOTINE 7 MG/24 HOURS TOPICAL PATCH TD SCH (09:28)
[2021-05-31] MEDS: HYDROCHLOROTHIAZIDE 25 MG TABLET (FP) PO SCH (10:00)
[2021-05-31] MEDS: QUEtiapine FUMARATE 25 MG TABLET PO SCH (21:35)
[2021-05-31] MEDS: THIAMINE HCL 100 MG TABLET (FP) PO SCH (21:35)
[2021-06-01] MEDS: hydrOXYzine PAMOATE 25 MG CAPSULE (FP) PO PRN ×2 (10:12→21:56)
[2021-06-01] MEDS: HYDROCHLOROTHIAZIDE 25 MG TABLET (FP) PO SCH (10:12)
[2021-06-01] MEDS: PRENATAL VITAMINS W/ FOLIC ACID TABLET (FP) PO SCH (10:12)
[2021-06-01] MEDS: BICTEGRAV/EMTRICIT/TENOFOV (BIKTARVY) 50-200-25 MG TABLET PO SCH (10:12)
[2021-06-01] MEDS: NICOTINE 7 MG/24 HOURS TOPICAL PATCH TD SCH (10:13)
[2021-06-01] MEDS: QUEtiapine FUMARATE 25 MG TABLET PO SCH (21:55)
[2021-06-01] MEDS: THIAMINE HCL 100 MG TABLET (FP) PO SCH (21:56)
[2021-06-02] MEDS: PRENATAL VITAMINS W/ FOLIC ACID TABLET (FP) PO SCH (10:25)
[2021-06-02] MEDS: HYDROCHLOROTHIAZIDE 25 MG TABLET (FP) PO SCH (10:26)
[2021-06-02] MEDS: BICTEGRAV/EMTRICIT/TENOFOV (BIKTARVY) 50-200-25 MG TABLET PO SCH (10:26)
[2021-06-02] MEDS: hydrOXYzine PAMOATE 25 MG CAPSULE (FP) PO PRN ×2 (10:26→21:50)
[2021-06-02] MEDS: NICOTINE 7 MG/24 HOURS TOPICAL PATCH TD SCH (10:27)
[2021-06-02] MEDS: QUEtiapine FUMARATE 25 MG TABLET PO SCH (21:50)
[2021-06-02] MEDS: THIAMINE HCL 100 MG TABLET (FP) PO SCH (21:50)
[2021-06-03] MEDS: NICOTINE 7 MG/24 HOURS TOPICAL PATCH TD SCH (10:29)
[2021-06-03] MEDS: HYDROCHLOROTHIAZIDE 25 MG TABLET (FP) PO SCH (10:29)
[2021-06-03] MEDS: BICTEGRAV/EMTRICIT/TENOFOV (BIKTARVY) 50-200-25 MG TABLET PO SCH (10:29)
[2021-06-03] MEDS: PRENATAL VITAMINS W/ FOLIC ACID TABLET (FP) PO SCH (10:29)
[2021-06-03] MEDS: hydrOXYzine PAMOATE 25 MG CAPSULE (FP) PO PRN ×2 (10:29→21:19)
[2021-06-03] MEDS: QUEtiapine FUMARATE 25 MG TABLET PO SCH (21:19)
[2021-06-03] MEDS: THIAMINE HCL 100 MG TABLET (FP) PO SCH (21:19)
[2021-06-04] MEDS: PRENATAL VITAMINS W/ FOLIC ACID TABLET (FP) PO SCH ×2 (09:02→09:06)
[2021-06-04] MEDS: BICTEGRAV/EMTRICIT/TENOFOV (BIKTARVY) 50-200-25 MG TABLET PO SCH (09:02)
[2021-06-04] MEDS: hydrOXYzine PAMOATE 25 MG CAPSULE (FP) PO PRN (09:03)
[2021-06-04] MEDS: NICOTINE 7 MG/24 HOURS TOPICAL PATCH TD SCH (09:04)
[2021-06-04] MEDS: HYDROCHLOROTHIAZIDE 25 MG TABLET (FP) PO SCH (10:19)
[2021-06-04] MEDS: THIAMINE HCL 100 MG TABLET (FP) PO SCH (21:03)
[2021-06-04] MEDS: QUEtiapine FUMARATE 50 MG TABLET PO SCH (21:03)
[2021-06-05] MEDS: BICTEGRAV/EMTRICIT/TENOFOV (BIKTARVY) 50-200-25 MG TABLET PO SCH (10:34)
[2021-06-05] MEDS: PRENATAL VITAMINS W/ FOLIC ACID TABLET (FP) PO SCH (10:34)
[2021-06-05] MEDS: hydrOXYzine PAMOATE 25 MG CAPSULE (FP) PO PRN ×2 (10:34→21:15)
[2021-06-05] MEDS: NICOTINE 7 MG/24 HOURS TOPICAL PATCH TD SCH (10:35)
[2021-06-05] MEDS: HYDROCHLOROTHIAZIDE 25 MG TABLET (FP) PO SCH (10:35)
[2021-06-05] MEDS: QUEtiapine FUMARATE 50 MG TABLET PO SCH (21:14)
[2021-06-05] MEDS: THIAMINE HCL 100 MG TABLET (FP) PO SCH (21:15)
[2021-06-06] MEDS: BICTEGRAV/EMTRICIT/TENOFOV (BIKTARVY) 50-200-25 MG TABLET PO SCH (10:22)
[2021-06-06] MEDS: PRENATAL VITAMINS W/ FOLIC ACID TABLET (FP) PO SCH (10:22)
[2021-06-06] MEDS: hydrOXYzine PAMOATE 25 MG CAPSULE (FP) PO PRN ×2 (10:22→21:13)
[2021-06-06] MEDS: HYDROCHLOROTHIAZIDE 25 MG TABLET (FP) PO SCH (10:23)
[2021-06-06] MEDS: NICOTINE 7 MG/24 HOURS TOPICAL PATCH TD SCH (10:23)
[2021-06-06] MEDS: THIAMINE HCL 100 MG TABLET (FP) PO SCH (21:13)
[2021-06-06] MEDS: QUEtiapine FUMARATE 50 MG TABLET PO SCH (21:13)
[2021-06-07] MEDS: BICTEGRAV/EMTRICIT/TENOFOV (BIKTARVY) 50-200-25 MG TABLET PO SCH (10:30)
[2021-06-07] MEDS: PRENATAL VITAMINS W/ FOLIC ACID TABLET (FP) PO SCH (10:30)
[2021-06-07] MEDS: hydrOXYzine PAMOATE 25 MG CAPSULE (FP) PO PRN ×2 (10:30→22:07)
[2021-06-07] MEDS: NICOTINE 7 MG/24 HOURS TOPICAL PATCH TD SCH (10:31)
[2021-06-07] MEDS: HYDROCHLOROTHIAZIDE 25 MG TABLET (FP) PO SCH (10:31)
[2021-06-07] MEDS: QUEtiapine FUMARATE 50 MG TABLET PO SCH (22:06)
[2021-06-07] MEDS: THIAMINE HCL 100 MG TABLET (FP) PO SCH (22:06)
[2021-06-08] MEDS: HYDROCHLOROTHIAZIDE 25 MG TABLET (FP) PO SCH (10:54)
[2021-06-08] MEDS: BICTEGRAV/EMTRICIT/TENOFOV (BIKTARVY) 50-200-25 MG TABLET PO SCH (10:54)
[2021-06-08] MEDS: NICOTINE 7 MG/24 HOURS TOPICAL PATCH TD SCH (10:54)
[2021-06-08] MEDS: PRENATAL VITAMINS W/ FOLIC ACID TABLET (FP) PO SCH (10:54)
[2021-06-08] MEDS: hydrOXYzine PAMOATE 25 MG CAPSULE (FP) PO PRN ×2 (10:55→21:49)
[2021-06-08] MEDS: THIAMINE HCL 100 MG TABLET (FP) PO SCH (21:49)
[2021-06-08] MEDS: QUEtiapine FUMARATE 50 MG TABLET PO SCH (21:49)
[2021-06-09] MEDS: NICOTINE 7 MG/24 HOURS TOPICAL PATCH TD SCH (10:02)
[2021-06-09] MEDS: HYDROCHLOROTHIAZIDE 25 MG TABLET (FP) PO SCH (10:02)
[2021-06-09] MEDS: BICTEGRAV/EMTRICIT/TENOFOV (BIKTARVY) 50-200-25 MG TABLET PO SCH (10:02)
[2021-06-09] MEDS: PRENATAL VITAMINS W/ FOLIC ACID TABLET (FP) PO SCH (10:02)
[2021-06-09] MEDS: hydrOXYzine PAMOATE 25 MG CAPSULE (FP) PO PRN ×2 (10:03→21:21)
[2021-06-09] MEDS: THIAMINE HCL 100 MG TABLET (FP) PO SCH (21:21)
[2021-06-09] MEDS: QUEtiapine FUMARATE 50 MG TABLET PO SCH (21:21)
[2021-06-10] MEDS: PRENATAL VITAMINS W/ FOLIC ACID TABLET (FP) PO SCH (10:03)
[2021-06-10] MEDS: HYDROCHLOROTHIAZIDE 25 MG TABLET (FP) PO SCH (10:04)
[2021-06-10] MEDS: BICTEGRAV/EMTRICIT/TENOFOV (BIKTARVY) 50-200-25 MG TABLET PO SCH (10:04)
[2021-06-10] MEDS: NICOTINE 7 MG/24 HOURS TOPICAL PATCH TD SCH (10:04)
[2021-06-10] MEDS: hydrOXYzine PAMOATE 25 MG CAPSULE (FP) PO PRN ×2 (10:05→22:08)
[2021-06-10] MEDS: QUEtiapine FUMARATE 50 MG TABLET PO SCH (22:08)
[2021-06-10] MEDS: THIAMINE HCL 100 MG TABLET (FP) PO SCH (22:08)
[2021-06-11] MEDS: PRENATAL VITAMINS W/ FOLIC ACID TABLET (FP) PO SCH (10:30)
[2021-06-11] MEDS: hydrOXYzine PAMOATE 25 MG CAPSULE (FP) PO PRN ×2 (10:30→21:26)
[2021-06-11] MEDS: NICOTINE 7 MG/24 HOURS TOPICAL PATCH TD SCH (10:30)
[2021-06-11] MEDS: HYDROCHLOROTHIAZIDE 25 MG TABLET (FP) PO SCH (10:31)
[2021-06-11] MEDS: BICTEGRAV/EMTRICIT/TENOFOV (BIKTARVY) 50-200-25 MG TABLET PO SCH (10:31)
[2021-06-11] MEDS: THIAMINE HCL 100 MG TABLET (FP) PO SCH (21:26)
[2021-06-11] MEDS: QUEtiapine FUMARATE 50 MG TABLET PO SCH (21:26)
[2021-06-12] MEDS: HYDROCHLOROTHIAZIDE 25 MG TABLET (FP) PO SCH (10:17)
[2021-06-12] MEDS: BICTEGRAV/EMTRICIT/TENOFOV (BIKTARVY) 50-200-25 MG TABLET PO SCH (10:17)
[2021-06-12] MEDS: NICOTINE 7 MG/24 HOURS TOPICAL PATCH TD SCH (10:17)
[2021-06-12] MEDS: PRENATAL VITAMINS W/ FOLIC ACID TABLET (FP) PO SCH (10:17)
[2021-06-12] MEDS: THIAMINE HCL 100 MG TABLET (FP) PO SCH (21:21)
[2021-06-12] MEDS: hydrOXYzine PAMOATE 25 MG CAPSULE (FP) PO PRN (21:21)
[2021-06-12] MEDS: QUEtiapine FUMARATE 50 MG TABLET PO SCH (21:21)
[2021-06-13] MEDS: BICTEGRAV/EMTRICIT/TENOFOV (BIKTARVY) 50-200-25 MG TABLET PO SCH (11:29)
[2021-06-13] MEDS: HYDROCHLOROTHIAZIDE 12.5 MG CAPSULE (FP) PO SCH (11:29)
[2021-06-13] MEDS: PRENATAL VITAMINS W/ FOLIC ACID TABLET (FP) PO SCH (11:29)
[2021-06-13] MEDS: NICOTINE 7 MG/24 HOURS TOPICAL PATCH TD SCH (11:29)
[2021-06-13] MEDS: MENTHOL/PHENOL 1 EACH UD MM PRN (20:41)
[2021-06-13] MEDS: THIAMINE HCL 100 MG TABLET (FP) PO SCH (21:28)
[2021-06-13] MEDS: QUEtiapine FUMARATE 50 MG TABLET PO SCH (21:28)
[2021-06-13] MEDS: hydrOXYzine PAMOATE 25 MG CAPSULE (FP) PO PRN (21:28)
[2021-06-14] MEDS: BICTEGRAV/EMTRICIT/TENOFOV (BIKTARVY) 50-200-25 MG TABLET PO SCH (10:01)
[2021-06-14] MEDS: PRENATAL VITAMINS W/ FOLIC ACID TABLET (FP) PO SCH (10:01)
[2021-06-14] MEDS: HYDROCHLOROTHIAZIDE 12.5 MG CAPSULE (FP) PO SCH (10:01)
[2021-06-14] MEDS: NICOTINE 7 MG/24 HOURS TOPICAL PATCH TD SCH (10:02)
[2021-06-14] MEDS: hydrOXYzine PAMOATE 25 MG CAPSULE (FP) PO PRN (21:09)
[2021-06-14] MEDS: QUEtiapine FUMARATE 50 MG TABLET PO SCH (21:09)
[2021-06-14] MEDS: THIAMINE HCL 100 MG TABLET (FP) PO SCH (21:09)
[2021-06-15] MEDS: BICTEGRAV/EMTRICIT/TENOFOV (BIKTARVY) 50-200-25 MG TABLET PO SCH (10:23)
[2021-06-15] MEDS: hydrOXYzine PAMOATE 25 MG CAPSULE (FP) PO PRN ×2 (10:23→21:43)
[2021-06-15] MEDS: PRENATAL VITAMINS W/ FOLIC ACID TABLET (FP) PO SCH (10:23)
[2021-06-15] MEDS: NICOTINE 7 MG/24 HOURS TOPICAL PATCH TD SCH (10:23)
[2021-06-15] MEDS: HYDROCHLOROTHIAZIDE 12.5 MG CAPSULE (FP) PO SCH (10:23)
[2021-06-15] MEDS: guaiFENesin 200 MG/10 ML 10 ML UNIT-DOSE CUPS PO PRN (10:25)
[2021-06-15] MEDS: P-EPHED 60MG/TRIPROLIDI 2.5MG TABLET PO PRN (10:25)
[2021-06-15] MEDS: MENTHOL/PHENOL 1 EACH UD MM PRN ×2 (10:25→21:43)
[2021-06-15] MEDS: THIAMINE HCL 100 MG TABLET (FP) PO SCH (21:43)
[2021-06-15] MEDS: QUEtiapine FUMARATE 50 MG TABLET PO SCH (21:43)
[2021-06-16] MEDS: HYDROCHLOROTHIAZIDE 12.5 MG CAPSULE (FP) PO SCH (10:15)
[2021-06-16] MEDS: NICOTINE 7 MG/24 HOURS TOPICAL PATCH TD SCH (10:17)
[2021-06-16] MEDS: hydrOXYzine PAMOATE 25 MG CAPSULE (FP) PO PRN ×2 (10:17→21:10)
[2021-06-16] MEDS: PRENATAL VITAMINS W/ FOLIC ACID TABLET (FP) PO SCH (10:17)
[2021-06-16] MEDS: BICTEGRAV/EMTRICIT/TENOFOV (BIKTARVY) 50-200-25 MG TABLET PO SCH (10:17)
[2021-06-16] MEDS: guaiFENesin 200 MG/10 ML 10 ML UNIT-DOSE CUPS PO PRN ×2 (10:18→18:14)
[2021-06-16] MEDS: QUEtiapine FUMARATE 50 MG TABLET PO SCH (21:10)
[2021-06-16] MEDS: P-EPHED 60MG/TRIPROLIDI 2.5MG TABLET PO PRN (21:10)
[2021-06-16] MEDS: THIAMINE HCL 100 MG TABLET (FP) PO SCH (21:10)
[2021-06-16] MEDS: MENTHOL/PHENOL 1 EACH UD MM PRN (21:11)
[2021-06-17 07:29] VITALS: TEMP 97.7
[2021-06-17] MEDS: BICTEGRAV/EMTRICIT/TENOFOV (BIKTARVY) 50-200-25 MG TABLET PO SCH (09:19)
[2021-06-17] MEDS: PRENATAL VITAMINS W/ FOLIC ACID TABLET (FP) PO SCH (09:19)
[2021-06-17] MEDS: NICOTINE 7 MG/24 HOURS TOPICAL PATCH TD SCH (09:20)
[2021-06-17] MEDS: HYDROCHLOROTHIAZIDE 12.5 MG CAPSULE (FP) PO SCH (09:20)
[2021-06-17 11:00] VITALS: BP 90/62; PULSE 109
== END 2021-06-17 10:05 | disposition home or self-care (01) | DRG 772 ==
LOC: YASAS 13:01 → Y5N 13:02
PROVIDERS: ADMIT Allergy & Immunology; ATTEND Allergy & Immunology
PROC: HZ42ZZZ Group Counseling for Substance Abuse Treatment, Cognitive-Behavioral (ICD-10-PCS; principal; 2021-05-28)
DX: F10.20 Alcohol dependence, uncomplicated (principal); F12.20 Cannabis dependence, uncomplicated; F17.210 Nicotine dependence, cigarettes, uncomplicated; F19.24 Other psychoactive substance dependence with psychoactive substance-induced mood disorder; Z21 Asymptomatic human immunodeficiency virus [HIV] infection status; J43.9 Emphysema, unspecified; R94.31 Abnormal electrocardiogram [ECG] [EKG]; R00.0 Tachycardia, unspecified; Z86.19 Personal history of other infectious and parasitic diseases
CPT/HCPCS: 93005; 93010

== ENCOUNTER 2021-06-13 02:12 | Emergency (ER) | payer OTHER ==
[2021-06-13 02:33] VITALS: TEMP 98.5; BMI 39.3
[2021-06-13 03:28] LABS: HEMATOCRIT 31.9 % (32.4-45.2); HEMOGLOBIN 11.4 GM/dL (10.7-15.3); MCH 36.1 pg (25.7-33.7); MCHC 35.7 g/dl (32.0-36.0); MEAN CELL VOLUME 101.1 fl (80-96); MEAN PLT VOLUME 9.1 fl (7.5-11.1); PLATELET COUNT 137 10^3/uL (134-434); RBC 3.15 M/mm3 (3.60-5.2); RDW 11.6 % (11.6-15.6); WHITE BLOOD COUNT 5.2 K/mm3 (4.0-10.0)
[2021-06-13 03:47] LABS: CHLORIDE 103 mmol/L (98-107); SODIUM 138 mmol/L (136-145)
[2021-06-13 03:50] LABS: ALBUMIN 1.8 g/dl (3.4-5.0); ANION GAP 7 MMOL/L (8-16); CO2 28 mmol/L (21-32); GLUCOSE,RANDOM 97 mg/dL (74-106)
[2021-06-13 03:53] LABS: PHOSPHOROUS 3.5 mg/dL (2.5-4.9); SGOT/AST 44 U/L (15-37); SGPT/ALT 22 U/L (13-61)
[2021-06-13 03:54] LABS: BILIRUBIN,TOTAL 0.5 mg/dL (0.2-1)
[2021-06-13 03:55] LABS: TOT PROT 8.5 g/dl (6.4-8.2)
[2021-06-13 03:56] LABS: ALK PHOS 80 U/L (45-117)
[2021-06-13 04:11] LABS: MAGNESIUM 1.4 mg/dL (1.8-2.4)
[2021-06-13 04:43] LABS: ANISOCYTOSIS 0; MACROCYTOSIS 0; PLATELET ESTIMATE DECREASED
[2021-06-13 05:51] LABS: N-TERMINAL BNP 106.9 pg/ml (5-125)
[2021-06-13] MEDS ORDERED: MAGNESIUM SULF 50% (8.12 MEQ/2 ML-1 GM VIAL) IVPB ONE (06:09)
[2021-06-13] MEDS ORDERED: MAGNESIUM SULFATE IN WATER 2 GM/50 ML IVPB IVPB ONE (06:16)
[2021-06-13] MEDS: KCL 10 MEQ IVPB 10 MEQ/100 ML INFUS.BAG IVPB SCH ×2 (06:57→08:39)
[2021-06-13] MEDS ORDERED: KCL 10 MEQ IVPB 10 MEQ/100 ML INFUS.BAG IVPB ONE (08:40)
[2021-06-13 10:55] VITALS: BP 119/67; PULSE 101
== END 2021-06-13 10:56 | disposition home or self-care (01) ==
LOC: JER 02:12
PROC: 3E033GC Introduction of Other Therapeutic Substance into Peripheral Vein, Percutaneous Approach (ICD-10-PCS; principal; 2021-06-13)
PROC: 3E033GC Introduction of Other Therapeutic Substance into Peripheral Vein, Percutaneous Approach (ICD-10-PCS; 2021-06-13)
DX: R06.09 Other forms of dyspnea (principal)
CPT/HCPCS: 36415; 71046-TC-FY; 71275-TC; 80053; 82550; 83735; 83880; 84100; 84484; 85025; 99285-25